=== PATIENT | male | born 1965 | race Caucasian/White ===

== ENCOUNTER 2017-08-24 08:40 | Inpatient (IN) | payer OTHER ==
[~2017-08-24] VITALS: Ht 180.3 cm; Wt 110.4 kg
[~2017-08-24 08:40] MED LIST: ATOR40TA16 PO; C PAP; CARD360C PO; DIPH25CA PO; IBUP-232 PO; LISI40TA PO; SERT-129 PO
[2017-08-24 08:49] VITALS: BP 171/69; PULSE 79; RESP 18; O2SAT 91
[2017-08-24] MEDS ORDERED: ONDANSETRON HCL 4 MG/2 ML VIAL IV PUSH ONE ×2 (09:00→12:00)
[2017-08-24] MEDS ORDERED: MORPHINE SULFATE 4 MG/ML INJ IV PUSH ONE (09:00)
[2017-08-24] MEDS ORDERED: BLOOD PRESSURE MED PO (09:03)
[2017-08-24] MEDS ORDERED: TETANUS/DIPHTHERIA TOXOID ADULT 0.5 ML VIAL IM ONE (09:15)
[2017-08-24] MEDS ORDERED: ceFAZolin 2 GM PREMIX 50 ML IV ONE (09:15)
--- NOTE | 2017-08-24 09:15 | PD ---
HPI Chief Complaint: Fall Time Seen by Provider: 08:59 Travel History International Travel<30 days: No Contact w/Intl Traveler<30days: No Traveled to known affect area: No History of Present Illness HPI 52-year-old male patient presents to the ER today brought in by EMS because he states that he had fallen off the ladder after pinching his finger on a piece of equipment, and states that he fell about 7-8 feet, landed on both of his legs , and is having bilateral leg pains. He denies falling on his back, denies any loss of consciousness or head injuries or other injuries. Modifying Factors: None Associated Signs & Symptoms: Fall, bilateral leg injuries Risk Factors: None PFSH Past Medical History Depression: Yes Hypertension: Yes Tetanus Vaccination: > 5 Years Past Surgical History Appendectomy: Yes Social History Alcohol Use: No Tobacco Use: No Substance Use: No Allergies-Medications (Allergen,Severity, Reaction): Coded Allergies: oxycodone (Unverified Allergy, Intermediate, Rash,Hives, 08/24/17) all over body Reported Meds & Prescriptions Reported Meds & Active Scripts Active Sertraline (Sertraline HCl) 100 Mg Tab 100 Mg PO DAILY 1 and 1/2 tablets daily Lisinopril 40 Mg Tab 40 Mg PO DAILY Reported Cardizem CD 24 HR (Diltiazem CD 24 HR) 360 Mg Caper 360 Mg PO DAILY Review of Systems Except as stated in HPI: all other systems reviewed are Neg Physical Exam Narrative GENERAL: Well-developed middle-age male patient currently in moderate distress. Awake and oriented 3. On backboard. SKIN: Focused skin assessment warm/dry. HEAD: Atraumatic. Normocephalic. EYES: Pupils equal and round. No scleral icterus. No injection or drainage. ENT: No nasal bleeding or discharge. Mucous membranes pink and moist. NECK: Trachea midline. No JVD. No midline C-spine tenderness. Supple. CARDIOVASCULAR: Regular rate and rhythm. No murmur appreciated. RESPIRATORY: No accessory muscle use. Clear to auscultation. Breath sounds equal bilaterally. GASTROINTESTINAL: Abdomen soft, non-tender, nondistended. Hepatic and splenic margins not palpable. Pelvis: Stable and nontender to palpation. Nontender range of motion of both hips. MUSCULOSKELETAL: No obvious deformities. No clubbing. No cyanosis. No edema. EXTREMITIES: No clubbing, cyanosis, or edema. There is notable abrasions and tenderness and ecchymosis over the anterior right knee below the patella area, decreased range of motion secondary to pain. There is a left ankle deformity and laceration to the ankle area concerning for possible open fracture. Neurovascularly intact below injury. NEUROLOGICAL: Awake and alert. No obvious cranial nerve deficits. Motor grossly within normal limits. Normal speech. PSYCHIATRIC: Appropriate mood and affect; insight and judgment normal. Data Data Last Documented VS Vital Signs Date Time Temp Pulse Resp B/P (MAP) Pulse Ox O2 Delivery O2 Flow Rate FiO2 08/24/17 08:53 80 08/24/17 08:49 18 171/69 (103) 91 Orders Orders Foot, Limited (2vws) (08/24/17 08:59) Tibia/Fibula (Ap/Lat) (08/24/17 08:59) Knee, Complete (4vws) (08/24/17 08:59) Tibia/Fibula (Ap/Lat) (08/24/17 08:59) Morphine Inj (Morphine Inj) (08/24/17 09:00) Ondansetron Inj (Zofran Inj) (08/24/17 09:00) Complete Blood Count With Diff (08/24/17 09:12) Basic Metabolic Panel (Bmp) (08/24/17 09:12) Tetanus/Diphtheria Tox Adult (Tetanus/Di (08/24/17 09:15) Cefazolin 2 Gm Premix (Ancef 2 Gm Premix (08/24/17 09:15) Knee, Ltd (1 Or 2vws) (08/24/17 08:59) Hydromorphone Pf Inj (Dilaudid Pf Inj) (08/24/17 11:15) Admit Order (Ed Use Only) (08/24/17 11:27) Labs Laboratory Tests Test 08/24/17 09:10 White Blood Count 10.0 TH/MM3 Red Blood Count 4.69 MIL/MM3 Hemoglobin 14.6 GM/DL Hematocrit 43.2 % Mean Corpuscular Volume 91.9 FL Mean Corpuscular Hemoglobin 31.0 PG Mean Corpuscular Hemoglobin Concent 33.8 % Red Cell Distribution Width 13.1 % Platelet Count 237 TH/MM3 Mean Platelet Volume 8.1 FL Neutrophils (%) (Auto) 61.3 % Lymphocytes (%) (Auto) 30.2 % Monocytes (%) (Auto) 6.9 % Eosinophils (%) (Auto) 1.0 % Basophils (%) (Auto) 0.6 % Neutrophils # (Auto) 6.1 TH/MM3 Lymphocytes # (Auto) 3.0 TH/MM3 Monocytes # (Auto) 0.7 TH/MM3 Eosinophils # (Auto) 0.1 TH/MM3 Basophils # (Auto) 0.1 TH/MM3 CBC Comment DIFF FINAL Differential Comment Blood Urea Nitrogen 10 MG/DL Creatinine 1.15 MG/DL Random Glucose 149 MG/DL Calcium Level 8.2 MG/DL Sodium Level 139 MEQ/L Potassium Level 3.9 MEQ/L Chloride Level 105 MEQ/L Carbon Dioxide Level 24.2 MEQ/L Anion Gap 10 MEQ/L Estimat Glomerular Filtration Rate 66 ML/MIN [facility] Medical Decision Making Medical Screen Exam Complete: Yes Emergency Medical Condition: Yes Medical Record Reviewed: Yes Interpretation(s) Laboratory Tests Test 08/24/17 09:10 Random Glucose 149 MG/DL (74-106) Calcium Level 8.2 MG/DL (8.5-10.1) Estimat Glomerular Filtration Rate 66 ML/MIN (>89) Last 24 hours Impressions Tibia/Fibula X-Ray 08/24/1759 Signed Impressions: Service Date/Time: Thursday, August 24, 2017 09:17 - CONCLUSION: 1. Severely comminuted fracture involving the distal tibia the distal tibia with essentially shattered. The ankle mortise itself is intact. 2. Angulated fracture involving the distal fibula. 3. There are several bone fragments adjacent to the fibular head is below the knee consistent with mildly comminuted fracture of the proximal fibular head as well. Jaime Toledo MD Knee X-Ray 08/24/1759 Signed Impressions: Service Date/Time: Thursday, August 24, 2017 09:17 - CONCLUSION: 1. Comminuted, mildly displaced fracture of the fibular head. Jaime Toledo MD Knee X-Ray 08/24/1759 Signed Impressions: Service Date/Time: Thursday, August 24, 2017 09:42 - CONCLUSION: 1. Comminuted, mildly displaced fracture of the proximal right tibia. 2. The tibial plateaus are intact. There is however it advanced tricompartmental osteoarthritis in the right knee. Jaime Toledo MD Differential Diagnosis Acute fractures versus dislocations versus contusions Narrative Course The left ankle is a severely comminuted tib-fib fracture distally and is appears to be open. Patient was given Ancef and IV pain medications in the ER. The right tibial plateau was also comminuted and fractured. He is placed in splints. Case was discussed with Dr. Tenorio who plans to take the patient to the OR tonight. Case was then discussed with trauma surgery, , who agrees to admit him to trauma. Diagnosis Primary Impression: Fall from ladder Additional Impressions: Open fracture of tibia and fibula Fracture of right tibial plateau Admitting Information Admitting Physician Requests: Admit Gordo Medrano MD Aug 24, 2017 09:15
[2017-08-24 09:28] LABS: AUTOMATED NEUTROPHIL # 6.1 TH/MM3 (1.8-7.7); BASOPHIL # 0.1 TH/MM3 (0-0.2); BASOPHIL % 0.6 % (0.0-2.0); EOSINOPHIL # 0.1 TH/MM3 (0-0.4); HEMATOCRIT 43.2 % (39.0-51.0); HEMOGLOBIN 14.6 GM/DL (13.0-17.0); LYMPH % 30.2 % (9.0-44.0); MEAN CELL VOLUME 91.9 FL (80.0-100.0); MEAN CORPUSCULAR HGB CONC 33.8 % (32.0-36.0); MEAN PLATELET VOLUME 8.1 FL (7.0-11.0); MONO % 6.9 % (0.0-8.0); MONOCYTE # 0.7 TH/MM3 (0-0.9); NEUT % 61.3 % (16.0-70.0); PLATELET COUNT 237 TH/MM3 (150-450); RED BLOOD COUNT 4.69 MIL/MM3 (4.50-5.90); RED CELL DISTRIBUTION WIDTH 13.1 % (11.6-17.2)
[2017-08-24 09:51] LABS: BICARBONATE 24.2 MEQ/L (21.0-32.0); CALCIUM 8.2 MG/DL (8.5-10.1); CREATININE 1.15 MG/DL (0.60-1.30)
--- NOTE | 2017-08-24 10:21 | RADRPT ---
EXAM DATE/TIME: 08/24/2017 09:17 [facility] COMPARISON: No previous studies available for comparison. INDICATIONS : Fall from fox. Left ankle deformity with open wound. MEDICAL HISTORY : None. SURGICAL HISTORY : None. ENCOUNTER: Initial ACUITY: 1 day PAIN SCORE: 10/10 LOCATION: Left ankle FINDINGS: The examination demonstrates a severely comminuted fracture involving the distal tibia. This extends nearly down to the articular surface. There are numerous fracture fragments. There is mild angulation . The examination also demonstrates an angulated fracture involving the distal fibula. The examination also demonstrates multiple small bone fragments adjacent to the fibular head consistent with fibular head fracture. There is considerable soft tissue defect above this suggesting open fracture. I do not see evidence o f gas within the subcutaneous tissues. CONCLUSION: 1. Severely comminuted fracture involving the distal tibia the distal tibia with essentially shattere d. The ankle mortise itself is intact. 2. Angulated fracture involving the distal fibula. 3. There are several bone fragments adjacent to the fibular head is below the knee consistent with mi ldly comminuted fracture of the proximal fibular head as well. Jaime Toledo MD on August 24, 2017 at 10:16 Board Certified Radiologist. This report was verified electronically.
--- NOTE | 2017-08-24 10:28 | RADRPT ---
EXAM DATE/TIME: 08/24/2017 09:17 [facility] COMPARISON: No previous studies available for comparison. INDICATIONS : Fall from fox. Left tibia pain with distal deformity. MEDICAL HISTORY : None. SURGICAL HISTORY : None. ENCOUNTER: Initial ACUITY: 1 day PAIN SCORE: 10/10 LOCATION: Left distal tib/fib FINDINGS: The examination demonstrates several bone fragments adjacent to the proximal fibular head. Exam would be consistent with fracture the fibular head. I do not see the exact donor site. There is no significant joint effusion within the knee. The femur tibia and patella are intact. CONCLUSION: 1. Comminuted, mildly displaced fracture of the fibular head. Jaime Toledo MD on August 24, 2017 at 10:25 Board Certified Radiologist. This report was verified electronically.
[2017-08-24] MEDS ORDERED: CARD360C PO (10:56)
[2017-08-24] MEDS ORDERED: HYDROmorphone HCL PF 1 MG/ML VIAL IV PUSH ONE (11:15)
[2017-08-24] MEDS ORDERED: HYDROmorphone HCL PF 2 MG/ML VIAL IV PUSH ONE (11:15)
--- NOTE | 2017-08-24 11:15 | RADRPT ---
EXAM DATE/TIME: 08/24/2017 09:42 [facility] COMPARISON: FOOT LEFT LIMITED (2VWS), August 24, 2017, 9:28. INDICATIONS : Fall from fox. Right proximal tibia injury. MEDICAL HISTORY : None. SURGICAL HISTORY : None. ENCOUNTER: Initial ACUITY: 1 day PAIN SCORE: 10/10 LOCATION: Right proximal tib/fib FINDINGS: The examination demonstrates a comminuted fracture of the proximal right tibia. There is mild medial displacement. There are moderate tricompartmental osteoarthritic changes within the right knee. CONCLUSION: 1. Comminuted, mildly displaced fracture of the proximal right tibia. 2. The tibial plateaus are intact. There is however it advanced tricompartmental osteoarthritis in th e right knee. Jaime Toledo MD on August 24, 2017 at 11:10 Board Certified Radiologist. This report was verified electronically.
--- NOTE | 2017-08-24 11:18 | RADRPT ---
EXAM DATE/TIME: 08/24/2017 09:28 [facility] COMPARISON: TIBIA/FIBULA LEFT (AP/LAT), August 24, 2017, 9:17. TIBIA/FIBULA RIGHT (AP/LAT), August 24, 2017, 9:42. INDICATIONS : Fall from fox. Left ankle deformity with open wound. MEDICAL HISTORY : None. SURGICAL HISTORY : None. ENCOUNTER: Initial ACUITY: 1 day PAIN SCORE: 10/10 LOCATION: Left ankle FINDINGS: Redemonstration of severely comminuted distal tibial fracture. Talar dome is not well demonstrated on the current exam but visualized portions appear intact. The osseous structures of the left foot appe ar intact. Joint spaces appear maintained. Soft tissues are unremarkable. CONCLUSION: 1. No acute fracture or dislocation in the foot. Jay Jay Diamond MD on August 24, 2017 at 10:52 Board Certified Radiologist. This report was verified electronically.
--- NOTE | 2017-08-24 11:20 | RADRPT ---
EXAM DATE/TIME: 08/24/2017 09:42 [facility] COMPARISON: No previous studies available for comparison. INDICATIONS : Fall from fox. Right proximal tib/fib injury. MEDICAL HISTORY : None. SURGICAL HISTORY : None. ENCOUNTER: Initial ACUITY: 1 day PAIN SCORE: 10/10 LOCATION: Right proximal tib/fib FINDINGS: Oblique comminuted fracture of the proximal tibia with subtle lateral displacement of the distal frag ment. Fibula appears intact without definite fracture. Joint spaces appear intact. Soft tissue promin ence overlying the anterior infrapatellar region. CONCLUSION: 1. Comminuted fracture of the proximal right tibia, as above. Jay Jay Diamond MD on August 24, 2017 at 11:16 Board Certified Radiologist. This report was verified electronically.
[2017-08-24] MEDS ORDERED: PROPOFOL 200 MG/20 ML AMP IV ONE (12:00)
[2017-08-24] MEDS ORDERED: DEXAMETHASONE SOD PHOS 4 MG/ML VIAL IV ONE (12:00)
[2017-08-24] MEDS ORDERED: PHENYLEPH/NS 1000 MCG/10 ML SYR IV ONE (12:00)
[2017-08-24] MEDS ORDERED: LIDOCAINE HCL 1% PF 5 ML SYRINGE OTHER ONE (12:00)
[2017-08-24] MEDS ORDERED: ePHEDrine/NS 25 MG/5 ML SYRINGE IV ONE (12:00)
[2017-08-24] MEDS ORDERED: LACTATED RINGER'S 1000 ML INJ 1,000 ML IV ONE (12:00)
[2017-08-24] MEDS ORDERED: ACETAMINOPHEN 1000 MG/100 ML 100 ML IV ONE (13:12)
[2017-08-24] MEDS ORDERED: HYDR-3288 PO (13:13)
[2017-08-24] MEDS ORDERED: ASPI81CH6 CHEW (13:14)
[2017-08-24] MEDS ORDERED: ceFAZolin INJ 1,000 MG VIAL ONE (13:25)
[2017-08-24] MEDS ORDERED: VANCOMYCIN HCL 1000 MG VIAL ONE (13:25)
[2017-08-24] MEDS ORDERED: SODIUM CHLOR 0.9% 250 ML INJ 250 ML ONE (13:25)
[2017-08-24] MEDS ORDERED: LACTATED RINGER'S 1000 ML IV PRN (13:30)
[2017-08-24] MEDS ORDERED: POVIDONE IODINE 5% (ANTISEPSIS KIT) 4 APPLICATIONS EACH NARE PRN (13:30)
[2017-08-24] MEDS ORDERED: METOPROLOL TARTRATE 25 MG TAB PO PRN (13:30)
[2017-08-24] MEDS ORDERED: CHLORHEXIDINE GLUCONATE 2 % 1 PACK (2 CLOTHS) TOPICAL PRN (13:30)
[2017-08-24] MEDS ORDERED: SODIUM CHLORID 0.9% 500 ML IV PRN (13:30)
[2017-08-24] MEDS ORDERED: GENTAMICIN SULFATE 80 MG/2 ML VIAL ONE (13:40)
--- NOTE | 2017-08-24 13:48 | MB ---
cc: Kev Tenorio MD DATE OF CONSULT: REASON FOR CONSULTATION: History of a fall off of a height with left comminuted open distal tibia/fibula pilon fracture and right tibial plateau fracture. HISTORY OF PRESENT ILLNESS: The patient is a 52-year-old male brought in by EMS to [facility] Emergency Room. He appeared to have fallen off a piece of construction equipment approximately 8 feet is what was reported, landing on his lower extremities, complained of severe pain at the lower extremities. He had obvious fractures involving the left distal tibia with a traumatic opening and complex wound and also sustained a right comminuted closed tibial plateau fracture. He was unable to stand or bear weight. The pain is extreme, severe, constant. He has worsening pain with any movement. Currently denies numbness, tingling. He denies hitting his head. Denies loss of consciousness. PAST MEDICAL HISTORY: Positive for hypertension and depression. PAST SURGICAL HISTORY: Appendectomy. SOCIAL HISTORY: Denies tobacco, alcohol or drug use. ALLERGIES: OXYCODONE. MEDICATIONS: Sertraline and lisinopril. FAMILY HISTORY: Reviewed and noncontributory. REVIEW OF SYSTEMS: Negative for 12 systems other than noted in the HPI. PHYSICAL EXAMINATION: GENERAL: The patient is a well-nourished male, awake, alert, in moderate distress, lying in bed. He is overweight. SKIN: Skin was warm. No rash. HEENT: Normocephalic, atraumatic. Pupils round. Extraocular movements intact. NECK: Supple. LUNGS: Clear. HEART: Regular rate and rhythm. ABDOMEN: Obese, soft, nontender. EXTREMITIES: Left lower extremity is currently splinted. There is swelling and deformity present. He can flex and extend his toes distally with pain, limitation of motion. Right lower extremity is also in a well-padded splint with swelling of the calf. He can flex and extend his toes distally. Brisk capillary refill. X-RAYS: Left tibia shows a highly comminuted complex distal tibia/fibula fracture which is pilon fracture and does appear intraarticular with displacement and angulation and deformity. X-rays of the right tibia shows a comminuted displaced tibial plateau fracture. IMPRESSION: This patient is a 52-year-old male who fell off a piece of construction equipment today sustaining multiple injuries to the lower extremities including a left open comminuted distal tibia/fibula pilon fracture as well as a right closed tibial plateau fracture. PLAN: Discussed diagnosis with the patient and treatment options. Discussed option of nonoperative treatment versus surgery. Surgery would be done in stages and surgery is my recommendation for treatment. Today recommendation for surgery would be irrigation and debridement of his left open tibial plateau fracture with reduction of the fracture and application of an external fixator. I would also recommend placing the patient in an external fixator for his right tibial plateau fracture after reduction maneuvers as well. Risks of surgery discussed, which include, but limited to anesthesia, bleeding, infection, damage to nerves and blood vessels, failure of components, blood clots. The patient also understands that my recommendation is to include addressing his injuries in a staged fashion, because of the complex nature as well as soft tissue swelling and the open fracture, I would not recommend putting internal fixation at this stage due to risk for soft tissue complication as well as infection. The patient has asked appropriate questions and these have been answered. He is in favor of proceeding with surgery as outlined above. Written consent has been obtained. The surgical sites including the right and left lower extremities have been marked by the undersigned and we will proceed with surgery emergently for his condition. MD HANSEL Chino/MARCO , 01:12 PM , 01:46 PM
[2017-08-24] MEDS ORDERED: DO NOT ADM ANY ANTICOAGULANT DRUGS PRN (14:37)
[2017-08-24] MEDS ORDERED: *MEPERIDINE 25 MG INJ VIAL PERIprocedural Use ONLY ONE (14:47)
--- NOTE | 2017-08-24 15:06 | MP ---
cc: Kev Tenorio MD DATE OF OPERATION: DATE OF PROCEDURE: 08/24/2017. PREOPERATIVE DIAGNOSIS: Left grade 2 open distal tibia/fibula comminuted fracture, right closed tibial plateau fracture. POSTOPERATIVE DIAGNOSIS: Left grade 2 open distal tibia/fibula comminuted fracture, right closed tibial plateau fracture. PROCEDURE PERFORMED: Closed reduction, left distal tibia/fibula pilon fracture under anesthesia with manipulation and application of multiplanar external fixator, left distal tibia/fibula open pilon fracture, irrigation and debridement of left distal tibia/fibula open fracture with complex 8 cm wound closure, closed reduction right tibial plateau fracture with manipulation and application of uniplanar external fixator right lower extremity. SURGEON: Kev Tenorio MD SAND CARRIER: BRANDI Thompson. ANESTHESIA: General. ESTIMATED BLOOD LOSS: 100 mL TOURNIQUET TIME: Zero minutes. COMPLICATIONS: None. IMPLANTS USED: Synthes. JUSTIFICATION: The patient is a 52-year-old male who fell off a piece of construction equipment sustaining the above named injuries. He was taken to [facility] Emergency Room as a trauma patient. Orthopedic surgery was consulted. The patient was counseled as to the risks, benefits and alternatives to the above named proposed surgical procedure. He did wish to proceed with surgery. PROCEDURE IN DETAIL: Written consent was obtained. The patient was identified by name and taken to the operating room and placed in the supine on the operating table. General anesthesia was administered, as well as 1 gram of IV Ancef, 1 gram of IV vancomycin. The left and right lower extremities were then prepped and draped using Isuprel alcohol, Hibiclens solution and ChloraPrep solution. After timeout was performed, Attention was first to the left lower extremity where the 8 cm traumatic open wound was extended in a longitudinal fashion using a 15 blade scalpel both proximally and distally. A meticulous debridement was performed to include skin, subcutaneous tissue, muscle, tendon down to level of bone. A curet was used to curet the distal tibia and fibula fractures. The wound was then thoroughly irrigated with sterile saline pulse lavage antibiotic impregnated solution. At this point, complex wound closure was performed using 3-0 nylon suture. At this point, 2 Synthes half pins were placed within the tibia in an AP plane and a medial to lateral transverse sagittal calcaneal pin was then placed. Raymundo to raymundo pin raymundo connections were performed and using assistance of fluoroscopic guidance, a closed reduction of the fracture was achieved. The raymundo to raymundo pin raymundo connections were clamped and tightened to allow for stabilization of the reduction and fracture. Sterile dressings were applied. Attention was then turned to the right lower extremity where 2 half pins were placed within the femoral shaft and also within the distal tibial shaft. Raymundo to raymundo pin raymundo connection performed. A closed reduction manipulation under anesthesia was performed using assistance of fluoroscopic guidance of the right tibial plateau fracture and the raymundo to raymundo pin raymundo connections were clamped and tightened to maintain stability and maintain reduction of the fracture. Fluoroscopic imaging again confirmed hardware placement and fracture reduction. Sterile dressings were again applied. The patient tolerated the procedure well with no intraoperative complications noted. The patient will require multiple staged surgical procedures in the future to further repair and reconstruct his injuries. This will be done in a planned staged pattern due to the complex nature of his injuries. Currently, he will receive ice, elevation, and IV antibiotic therapy for his open fracture. Narciso Crowe physician surgical assistant certified certified was present for the entire procedure to include patient positioning, the procedure itself. The medical necessity of physician surgical assistant certified was indicated in this case due to the complexity of the procedure. He assisted with manipulation of the fracture, as well as the application of the external fixation as well as achieving and maintaining fracture reduction. Kev Tenorio MD JWM/TL , 02:28 PM , 03:04 PM
[2017-08-24] MEDS ORDERED: *morphine SULFATE 10 MG/ML PERIprocedure ONLY ONE (15:17)
--- NOTE | 2017-08-24 15:18 | RADRPT ---
EXAM DATE/TIME: 08/24/2017 13:59 [facility] COMPARISON: TIBIA/FIBULA LEFT (AP/LAT), August 24, 2017, 9:17. TIBIA/FIBULA RIGHT (AP/LAT), August 24, 2017, 9:42. INDICATIONS : Ex Fix placement on left ankle fracture. MEDICAL HISTORY : Unobtainable. SURGICAL HISTORY : Unobtainable. ENCOUNTER: Subsequent ACUITY: 1 day PAIN SCORE: Non-responsive. LOCATION: Left ankle. FINDINGS: The examination demonstrates a severely comminuted, mildly angulated fracture of the distal left tibi a. There is a mildly displaced fracture of the fibula as well. The alignment is significantly improve d when compared to the prior study dated 08/24/17. CONCLUSION: 1. Significant improvement in the alignment of the patient's distal tibial and fibular fractures. Jaime Toledo MD on August 24, 2017 at 15:15 Board Certified Radiologist. This report was verified electronically.
--- NOTE | 2017-08-24 15:19 | RADRPT ---
EXAM DATE/TIME: 08/24/2017 13:59 [facility] COMPARISON: TIBIA/FIBULA RIGHT (AP/LAT), August 24, 2017, 9:42. INDICATIONS : Ex Fix placement on right tibial plateau fracture. MEDICAL HISTORY : Unobtainable. SURGICAL HISTORY : Unobtainable. ENCOUNTER: Subsequent ACUITY: 1 day PAIN SCORE: Non-responsive. LOCATION: Right knee. FINDINGS: Intraoperative film demonstrates the patient's known proximal tibial fracture. There is involvement o f the tibial tubercle. Alignment appears mildly improved when compared to previous dated 08/24/17. CONCLUSION: Intraoperative film demonstrates mild improvement in the alignment of the patient's tibial fracture. Jaime Toledo MD on August 24, 2017 at 15:16 Board Certified Radiologist. This report was verified electronically.
[2017-08-24] MEDS ORDERED: *morphine SULFATE 8 MG/ML PERIprocedure ONLY ONE (15:41)
[2017-08-24] MEDS ORDERED: *diphenhydrAMINE HCL 50 MG/ML VIAL PERIprocedural Use ONLY ONE ×2 (16:07→17:54)
[2017-08-24] MEDS ORDERED: ONDANSETRON HCL 4 MG/2 ML VIAL IV PUSH PRN ×2 (16:15→20:30)
[2017-08-24] MEDS ORDERED: MAGNESIUM HYDROXIDE SUSP 30 ML CUP PO PRN (20:30)
[2017-08-24] MEDS ORDERED: ENALAPRILAT 1.25 MG/ML VIAL IV PUSH PRN (20:30)
[2017-08-24] MEDS ORDERED: MISCELLANEOUS NURSING INFORMATION XX SCH (20:30)
[2017-08-24] MEDS ORDERED: CHLORHEXIDINE GLUCONATE 2 % 1 PACK (2 CLOTHS) TOP PRN (20:30)
[2017-08-24] MEDS ORDERED: NALOXONE HCL 0.4 MG/ML AMP IV PUSH PRN (20:30)
[2017-08-24 20:44] VITALS: BP 153/74; PULSE 89; RESP 17; TEMP 96.8; O2SAT 94
[2017-08-24] MEDS: BACITRACIN TOP OINT 15 GM TUBE TOP SCH (21:00)
[2017-08-24] MEDS: PCA - TOTAL MG MORPHINE DELIVERED PER SHIFT SCH (22:00)
[2017-08-24] MEDS ORDERED: ceFAZolin 2 GM PREMIX 50 ML IV SCH (22:45)
[2017-08-24] MEDS: METHOCARBAMOL 500 MG TAB PO SCH (22:45)
[2017-08-24] MEDS: GABAPENTIN 300 MG CAP PO SCH (22:46)
[2017-08-24] MEDS: DOCUSATE SODIUM 100 MG CAP PO SCH (22:47)
[2017-08-24] MEDS: SODIUM CHLOR 0.9% 1000 ML INJ 1,000 ML IV SCH (22:48)
[2017-08-24] MEDS: MORPHINE SULFATE 30 MG/30 ML PCA IV SCH (23:22)
[2017-08-25] VITALS (9 sets, daily range): BP systolic 117–154; BP diastolic 64–80; PULSE 86–102; RESP 17–19; TEMP 96.9–98.8; O2SAT 92–96
--- NOTE | 2017-08-25 01:40 | MH ---
cc: Kodak Philip MD DATE OF ADMISSION: 08/24/2017 DATE OF EVALUATION: Is 08/24/2017. HISTORY OF PRESENT ILLNESS: This is a trauma admit after a fall off of a ladder. The patient requires trauma admission. HISTORY OF PRESENT ILLNESS: The patient is a 52-year-old male who requires admission after a fall and sustaining multiple orthopaedic injuries. Per emergency room history and patient history, he lost his balance while on a ladder after pinching his finger in a piece of equipment and fell about 7-8 feet, landing on both of his legs. He complained of bilateral lower extremity pain and deformity. He denies falling on his back, chest, neck or head. Denies loss of consciousness and has no other complaints. The patient underwent evaluation in the emergency department, which included extensive imaging that showed severely comminuted fracture involving the distal left tibia and open fracture of the left tibia and fibula and closed fracture of the right tibial plateau. Dr. Tenorio was consulted and the patient was brought to the operating room urgently from the emergency department. The patient was found to have no other injuries. He is GCS is 15 and he is neurologically intact. He is medically stable. REVIEW OF SYSTEMS: A 12-point review of systems was discussed with the patient and reviewed in the chart; it is negative, except for the pertinent positives mentioned above. PAST MEDICAL HISTORY: Hypertension and depression. PAST SURGICAL HISTORY: History of appendectomy. ALLERGIES: OXYCODONE. HOME MEDICATIONS: 1. Lisinopril. 2. Cardizem. 3. Sertraline. FAMILY HISTORY: Noncontributory. SOCIAL HISTORY: The patient denies alcohol, tobacco or illicit drug use. PHYSICAL EXAMINATION: VITAL SIGNS: Initial vital signs in the emergency department: Pulse rate 80, respiratory rate 16, blood pressure 171/69. GENERAL: The patient is an overweight male in no acute distress. HEENT: Head is normocephalic, atraumatic. Pupils round and reactive to light. Sclerae are anicteric. Oral cavity is clear. Airway is patent. NECK: Trachea is midline. CHEST: Chest wall stable without deformity, nontender to palpation. Breath sounds present bilaterally. Nonlabored breathing pattern. HEART: Is regular rate and rhythm. No murmurs. ABDOMEN: Is soft, normal bowel sounds. No seatbelt sign. Nontender to palpation. No organomegaly. No ascites. BACK: No thoracic or lumbar tenderness. No ecchymosis or soft tissue injury. PELVIS: Is stable without deformity. Lower extremities show splints in place on the bilateral lower extremities. Toes are neurologically intact, warm and perfused. IMAGING Left tibia x-ray shows highly comminuted complex distal fracture. X-ray of the right tibia shows comminuted displaced tibial plateau fracture. LABORATORY VALUES: Hemoglobin 14.6. Glucose is elevated at 149. ASSESSMENT AND PLAN: The patient is a 52-year-old male status post a fall from a ladder with bilateral lower extremity fractures and isolated orthopaedic injury. The patient is status post washout and external fixation of the left ankle and external fixation of the right tibial plateau fracture. He is stable, neurologically intact. GCS 15. Admit the patient to the orthopaedic floor. Maintain the patient on appropriate antibiotics and pain medications and patient will be nonweightbearing, bilateral lower extremities. Will likely need significant Physical Therapy and Occupational Therapy evaluation and possible rehabilitation placement. MD GERALD Head/VEGA , 10:46 PM , 01:39 AM [email or web address]
[2017-08-25] MEDS: CHLORHEXIDINE GLUCONATE 2 % 1 PACK (2 CLOTHS) TOP SCH (04:00)
[2017-08-25] MEDS: PCA - TOTAL MG MORPHINE DELIVERED PER SHIFT SCH ×3 (05:12→22:00)
[2017-08-25] MEDS: MORPHINE SULFATE 30 MG/30 ML PCA IV SCH ×2 (05:12→14:52)
[2017-08-25] MEDS: METHOCARBAMOL 500 MG TAB PO SCH ×3 (05:12→22:26)
[2017-08-25 06:04] LABS: AUTOMATED NEUTROPHIL # 16.6 TH/MM3 (1.8-7.7); BASOPHIL % 0.1 % (0.0-2.0); HEMATOCRIT 36.8 % (39.0-51.0); HEMOGLOBIN 12.4 GM/DL (13.0-17.0); LYMPH % 7.3 % (9.0-44.0); LYMPHOCYTE # 1.4 TH/MM3 (1.0-4.8); MEAN CELL VOLUME 93.7 FL (80.0-100.0); MEAN CORPUSCULAR HEMOGLOBIN 31.6 PG (27.0-34.0); MEAN CORPUSCULAR HGB CONC 33.8 % (32.0-36.0); MEAN PLATELET VOLUME 8.2 FL (7.0-11.0); MONO % 6.6 % (0.0-8.0); MONOCYTE # 1.3 TH/MM3 (0-0.9); PLATELET COUNT 224 TH/MM3 (150-450); RED BLOOD COUNT 3.93 MIL/MM3 (4.50-5.90); WHITE BLOOD COUNT 19.3 TH/MM3 (4.0-11.0)
[2017-08-25 06:33] LABS: BICARBONATE 27.9 MEQ/L (21.0-32.0); CREATININE 1.57 MG/DL (0.60-1.30)
--- NOTE | 2017-08-25 06:42 | PD.ORT.PN ---
Subjective Subjective Remarks POD 1 s/p I&D and exfix of left distal tibia and right tibial plateau fxs doing well. pain controlled Objective Vitals Vital Signs Date Time Temp Pulse Resp B/P (MAP) Pulse Ox O2 Delivery O2 Flow Rate FiO2 08/25/17 05:24 18 08/25/17 05:12 18 08/25/17 05:12 18 08/25/17 04:00 98.5 93 18 139/77 (97) 95 08/25/17 00:00 98.8 93 17 142/80 (100) 94 08/24/17 23:22 18 08/24/17 20:44 96.8 89 17 153/74 (100) 94 08/24/17 20:00 97.6 78 15 122/68 (86) 95 Nasal Cannula 3 08/24/17 19:00 82 15 123/69 (87) 95 Nasal Cannula 3 08/24/17 18:00 84 15 130/71 (90) 94 Nasal Cannula 3 08/24/17 17:00 86 15 127/78 (94) 94 Nasal Cannula 3 08/24/17 16:00 88 15 130/73 (92) 93 Nasal Cannula 3 08/24/17 15:46 15 08/24/17 15:46 15 08/24/17 15:45 98.3 89 15 129/70 (89) 93 Nasal Cannula 3 08/24/17 15:30 92 15 135/69 (91) 99 Nasal Cannula 4 08/24/17 15:22 15 08/24/17 15:15 90 15 136/70 (92) 98 Nasal Cannula 4 08/24/17 15:00 91 15 138/67 (90) 97 Nasal Cannula 4 08/24/17 14:45 94 15 137/76 (96) 95 Nasal Cannula 4 08/24/17 14:35 98.6 93 10 148/81 (103) 94 Nasal Cannula 4 08/24/17 08:53 80 08/24/17 08:49 79 18 171/69 (103) 91 I/O 08/24/17 08/24/17 08/24/17 08/25/17 08/25/17 08/25/17 07:00 15:00 23:00 07:00 15:00 23:00 Intake Total 1050 ml 480 ml Output Total 30 ml Balance 1020 ml 480 ml Intake Oral 480 ml IV Total 50 ml Other 1000 ml Output Estimated Blood Loss 30 ml # Voids 0 Result Diagram: 08/25/170 08/25/17 0450 Imaging Last 24 hours Impressions Tibia/Fibula X-Ray 08/24/17 0859 Signed Impressions: Service Date/Time: Thursday, August 24, 2017 09:42 - CONCLUSION: 1. Comminuted fracture of the proximal right tibia, as above. Jay Jay Diamond MD Tibia/Fibula X-Ray 08/24/17 0859 Signed Impressions: Service Date/Time: Thursday, August 24, 2017 09:17 - CONCLUSION: 1. Severely comminuted fracture involving the distal tibia the distal tibia with essentially shattered. The ankle mortise itself is intact. 2. Angulated fracture involving the distal fibula. 3. There are several bone fragments adjacent to the fibular head is below the knee consistent with mildly comminuted fracture of the proximal fibular head as well. Jaime Toledo MD Knee X-Ray 08/24/17 0859 Signed Impressions: Service Date/Time: Thursday, August 24, 2017 09:17 - CONCLUSION: 1. Comminuted, mildly displaced fracture of the fibular head. Jaime Toledo MD Knee X-Ray 08/24/17 0859 Signed Impressions: Service Date/Time: Thursday, August 24, 2017 09:42 - CONCLUSION: 1. Comminuted, mildly displaced fracture of the proximal right tibia. 2. The tibial plateaus are intact. There is however it advanced tricompartmental osteoarthritis in the right knee. Jaime Toledo MD Foot X-Ray 08/24/17 0859 Signed Impressions: Service Date/Time: Thursday, August 24, 2017 09:28 - CONCLUSION: 1. No acute fracture or dislocation in the foot. Jay Jay Diamond MD Objective Remarks LLE: +exfix. pin sites clean. traumatic wound closed. 2+swelling. NVI RLE: +exfix. pin sites clean . 2+ swelling. NVI Assessment & Plan Assessment and Plan 1) Left Tibial Pilon Fx s/p Exfix - POD 1 2) Right Tibial Plateau Fx s/p exfix - POD 1 -CT scans of right knee and left ankle today -leave bandages open so can ice -elevate and ice -will re-eval for surgery after CT scans done -will likely be a few days before swelling is appropriate Nikhil Manuel/First Charlie PAZ Aug 25, 2017 06:42
[2017-08-25] MEDS: SODIUM CHLOR 0.9% 1000 ML INJ 1,000 ML IV SCH ×3 (07:00→20:53)
--- NOTE | 2017-08-25 08:21 | PD.ORT.PN ---
Subjective Post Op Day #: 1 Subjective Remarks pain controlled Objective Vitals Vital Signs Date Time Temp Pulse Resp B/P (MAP) Pulse Ox O2 Delivery O2 Flow Rate FiO2 08/25/17 07:51 97.8 96 19 135/68 (90) 94 08/25/17 05:24 18 08/25/17 05:12 18 08/25/17 05:12 18 08/25/17 04:00 98.5 93 18 139/77 (97) 95 08/25/17 00:00 98.8 93 17 142/80 (100) 94 08/24/17 23:22 18 08/24/17 20:44 96.8 89 17 153/74 (100) 94 08/24/17 20:00 97.6 78 15 122/68 (86) 95 Nasal Cannula 3 08/24/17 19:00 82 15 123/69 (87) 95 Nasal Cannula 3 08/24/17 18:00 84 15 130/71 (90) 94 Nasal Cannula 3 08/24/17 17:00 86 15 127/78 (94) 94 Nasal Cannula 3 08/24/17 16:00 88 15 130/73 (92) 93 Nasal Cannula 3 08/24/17 15:46 15 08/24/17 15:46 15 08/24/17 15:45 98.3 89 15 129/70 (89) 93 Nasal Cannula 3 08/24/17 15:30 92 15 135/69 (91) 99 Nasal Cannula 4 08/24/17 15:22 15 08/24/17 15:15 90 15 136/70 (92) 98 Nasal Cannula 4 08/24/17 15:00 91 15 138/67 (90) 97 Nasal Cannula 4 08/24/17 14:45 94 15 137/76 (96) 95 Nasal Cannula 4 08/24/17 14:35 98.6 93 10 148/81 (103) 94 Nasal Cannula 4 08/24/17 08:53 80 08/24/17 08:49 79 18 171/69 (103) 91 I/O 08/24/17 08/24/17 08/24/17 08/25/17 08/25/17 08/25/17 07:00 15:00 23:00 07:00 15:00 23:00 Intake Total 1050 ml 480 ml 720 ml Output Total 30 ml 575 ml Balance 1020 ml 480 ml 145 ml Intake Oral 480 ml 720 ml IV Total 50 ml Other 1000 ml Output Urine Total 575 ml Estimated Blood Loss 30 ml # Voids 0 # Bowel Movements 0 Result Diagram: 08/25/1744908/25/17449 Imaging Last 24 hours Impressions Tibia/Fibula X-Ray 08/24/17 0859 Signed Impressions: Service Date/Time: Thursday, August 24, 2017 09:42 - CONCLUSION: 1. Comminuted fracture of the proximal right tibia, as above. Jay Jay Diamond MD Tibia/Fibula X-Ray 08/24/17 0859 Signed Impressions: Service Date/Time: Thursday, August 24, 2017 09:17 - CONCLUSION: 1. Severely comminuted fracture involving the distal tibia the distal tibia with essentially shattered. The ankle mortise itself is intact. 2. Angulated fracture involving the distal fibula. 3. There are several bone fragments adjacent to the fibular head is below the knee consistent with mildly comminuted fracture of the proximal fibular head as well. Jaime Toledo MD Knee X-Ray 08/24/1759 Signed Impressions: Service Date/Time: Thursday, August 24, 2017 09:17 - CONCLUSION: 1. Comminuted, mildly displaced fracture of the fibular head. Jaime Toledo MD Knee X-Ray 08/24/17 0859 Signed Impressions: Service Date/Time: Thursday, August 24, 2017 09:42 - CONCLUSION: 1. Comminuted, mildly displaced fracture of the proximal right tibia. 2. The tibial plateaus are intact. There is however it advanced tricompartmental osteoarthritis in the right knee. Jaime Toledo MD Foot X-Ray 08/24/17 0859 Signed Impressions: Service Date/Time: Thursday, August 24, 2017 09:28 - CONCLUSION: 1. No acute fracture or dislocation in the foot. Jay Jay Diamond MD Objective Remarks LLE: +exfix. pin sites clean. traumatic wound closed. 2+swelling. NVI RLE: +exfix. pin sites clean . 2+ swelling. NVI Assessment & Plan Ortho Post Op Day #: 1 Problem List: Assessment and Plan 1) Left Tibial Pilon Fx s/p Exfix - POD 1 Dr. Tenorio 2) Right Tibial Plateau Fx s/p exfix - POD 1 Dr. Tenorio -CT scans of right knee and left ankle today -leave bandages open so can ice -elevate and ice -will re-eval for surgery after CT scans done -will likely be a few days before swelling is appropriate -plan for ORIF by Dr. Brownlee when swelling improves Kev Crowe Aug 25, 2017 08:21
[2017-08-25] MEDS: BACITRACIN TOP OINT 15 GM TUBE TOP SCH ×2 (09:00→20:58)
--- NOTE | 2017-08-25 09:04 | RADRPT ---
EXAM DATE/TIME: 08/25/2017 08:26 [facility] COMPARISON: KNEE RIGHT LTD (1 OR 2 VWS), August 24, 2017, 13:59. INDICATIONS : Fell off a fox. Evaluate right knee fracture. RADIATION DOSE: 8.49 CTDIvol (mGy) MEDICAL HISTORY : Hypertension. SURGICAL HISTORY : External fixator left and right legs. ENCOUNTER: Initial ACUITY: 1 day PAIN SCALE: 7/10 LOCATION: Right knee TECHNIQUE: Volumetric scanning of the knee was performed. Using automated exposure control and adjustment of th e mA and/or kV according to patient size, radiation dose was kept as low as reasonably achievable to obtain optimal diagnostic quality images. DICOM format image data is available electronically for re view and comparison. FINDINGS: The patella grossly intact. The distal femur is intact. There is a well-defined bone cyst in the dist al femur at the level of the lateral femoral condyle. This bone cyst measures approximately 1.8 x 1.6 cm. The proximal fibula is grossly intact. There appears to be a relatively nondisplaced fracture th rough the proximal shaft of the tibia. There is a small avulsion fracture involving the anterior tibi al tuberosity. The fracture line extends down into the proximal one third shaft of the tibia. The fra cture does not appear to involve the articulating surface. However, there does appear to be a well-de fined bone cyst in the proximal tibia measuring approximately 3.0 x 2.2 cm. There is good alignment a t the knee joint. There are some degenerative changes noted involving the knee joint. There is some n arrowing of the medial joint compartment. Also, there appears to be a small loose body in the medial joint compartment. Loose body measures approximately 6 mm. On the lateral view, the loose bodies is i n the posterior portion of the medial joint compartment. There is a small nondisplaced fracture invol ving the medial superior tip of the fibula. There is no evidence of any significant joint effusion. T here is soft tissue swelling in the subcutaneous soft tissues in the region of the knee joint and pro ximal tibia mostly anteriorly. CONCLUSION: 1. There are nondisplaced fractures involving the proximal one third shaft of the tibia. There is als o a nondisplaced avulsion fracture involving the anterior tibial tuberosity. 2. There is a small 6 mm loose body in the posterior medial joint compartment. 3. Nondisplaced fracture involving the superior medial fibula. 4. Well-defined bone cyst in the distal femur and proximal tibia. Marco Dahl MD on August 25, 2017 at 8:50 Board Certified Radiologist. This report was verified electronically.
--- NOTE | 2017-08-25 09:08 | RADRPT ---
EXAM DATE/TIME: 08/25/2017 08:26 [facility] COMPARISON: ANKLE LEFT LIMITED (AP&LAT), August 24, 2017, 13:59. INDICATIONS : Fell off a fox. Evaluate left ankle fractures. RADIATION DOSE: 7.57 CTDIvol (mGy) MEDICAL HISTORY : Hypertension. SURGICAL HISTORY : External fixators right and left legs. ENCOUNTER: Initial ACUITY: 1 day PAIN SCALE: 7/10 LOCATION: Left ankle TECHNIQUE: Volumetric scanning of the ankle was performed. Using automated exposure control and adjustment of t mA and/or kV according to patient size, radiation dose was kept as low as reasonably achievable to obtain optimal diagnostic quality images. DICOM format image data is available electronically for review and comparison. FINDINGS: There is a severely comminuted fracture involving the distal shaft of the tibia. The fractures are mi ldly displaced. There are several fracture lines extending into the articulating surface of the morti se joint. The fractures involving the articular surface of the distal tibia are comminuted and mildly displaced. There is a comminuted mildly displaced fracture involving the distal one third shaft of t he fibula. The calcaneus and talus appear to be grossly intact. No significant joint dislocation is n oted at the mortise joint. CONCLUSION: 1. Severely comminuted fracture involving the distal shaft of the tibia. 2. Comminuted intra-articular fracture involving the distal tibia at the mortise joint. 3. Mildly displaced fracture involving the distal shaft of the fibula. Marco Dahl MD on August 25, 2017 at 9:02 Board Certified Radiologist. This report was verified electronically.
[2017-08-25] MEDS: FAMOTIDINE 20 MG TAB PO SCH ×2 (09:27→20:58)
[2017-08-25] MEDS: LISINOPRIL 20 MG TAB PO SCH (09:27)
[2017-08-25] MEDS: DILTIAZEM-CD 180 MG CAP ER PO SCH (09:27)
[2017-08-25] MEDS: DOCUSATE SODIUM 100 MG CAP PO SCH ×2 (09:27→20:57)
[2017-08-25] MEDS: SERTRALINE HCL 100 MG TAB PO SCH (09:27)
[2017-08-25] MEDS: GABAPENTIN 300 MG CAP PO SCH ×3 (09:27→16:57)
[2017-08-25] MEDS: LACTULOSE SYRUP 20 GM/30 ML CUP PO SCH (09:27)
--- NOTE | 2017-08-25 11:20 | HHI.PR ---
Subjective Subjective Notes PTD: 1 Patient lying in bed. No distress noted. Visitors at bedside. Patient very disappointed due to his injury. "I just want to go home." "Can I just go back to work?" Objective Vitals/I&O Vital Signs Date Time Temp Pulse Resp B/P (MAP) Pulse Ox O2 Delivery O2 Flow Rate FiO2 08/25/17 07:51 97.8 96 19 135/68 (90) 94 08/24/17 20:00 Nasal Cannula 3 Labs Laboratory Tests Test 08/25/17 04:50 White Blood Count 19.3 Red Blood Count 3.93 Hemoglobin 12.4 Hematocrit 36.8 Mean Corpuscular Volume 93.7 Mean Corpuscular Hemoglobin 31.6 Mean Corpuscular Hemoglobin Concent 33.8 Red Cell Distribution Width 13.0 Platelet Count 224 Mean Platelet Volume 8.2 Neutrophils (%) (Auto) 86.0 Lymphocytes (%) (Auto) 7.3 Monocytes (%) (Auto) 6.6 Eosinophils (%) (Auto) 0.0 Basophils (%) (Auto) 0.1 Neutrophils # (Auto) 16.6 Lymphocytes # (Auto) 1.4 Monocytes # (Auto) 1.3 Eosinophils # (Auto) 0.0 Basophils # (Auto) 0.0 CBC Comment DIFF FINAL Differential Comment Blood Urea Nitrogen 21 Creatinine 1.57 Random Glucose 150 Calcium Level 8.0 Sodium Level 139 Potassium Level 4.7 Chloride Level 104 Carbon Dioxide Level 27.9 Anion Gap 7 Estimat Glomerular Filtration Rate 46 Radiology Last Impressions Lower Extremity CT 08/25/17 0000 Signed Impressions: Service Date/Time: Friday, August 25, 2017 08:26 - CONCLUSION: 1. There are nondisplaced fractures involving the proximal one third shaft of the tibia. There is also a nondisplaced avulsion fracture involving the anterior tibial tuberosity. 2. There is a small 6 mm loose body in the posterior medial joint compartment. 3. Nondisplaced fracture involving the superior medial fibula. 4. Well-defined bone cyst in the distal femur and proximal tibia. Marco Dahl MD Tibia/Fibula X-Ray 08/24/17 0859 Signed Impressions: Service Date/Time: Thursday, August 24, 2017 09:42 - CONCLUSION: 1. Comminuted fracture of the proximal right tibia, as above. Jay Jay Diamond MD Knee X-Ray 08/24/17 0859 Signed Impressions: Service Date/Time: Thursday, August 24, 2017 09:17 - CONCLUSION: 1. Comminuted, mildly displaced fracture of the fibular head. Jaime Toledo MD Foot X-Ray 08/24/17 0859 Signed Impressions: Service Date/Time: Thursday, August 24, 2017 09:28 - CONCLUSION: 1. No acute fracture or dislocation in the foot. Jay Jay Diamond MD Ankle X-Ray 08/24/17 0000 Signed Impressions: Service Date/Time: Thursday, August 24, 2017 13:59 - CONCLUSION: 1. Significant improvement in the alignment of the patient's distal tibial and fibular fractures. Jaime Toledo MD Narrative Exam GENERAL: This is a 52-year-old male lying in bed. No distress noted. SKIN: Warm and dry. HEAD: Atraumatic. Normocephalic. EYES: PERRLA ENT: No nasal bleeding or discharge. Mucous membranes pink and moist. NECK: Trachea midline. No JVD. CARDIOVASCULAR: Regular rate and rhythm. RESPIRATORY: No accessory muscle use. Lungs are clear to auscultation. Breath sounds equal bilaterally. No distress or dyspnea. GASTROINTESTINAL: BS + x 4 quads. Abdomen soft, non-tender, nondistended. MUSCULOSKELETAL: Extremities without cyanosis, or edema. Right lower extremity with ex-fix in place. Pin sites intact. Elevated on a pillow. Left lower extremity with ex-fix in place - increased swelling noted. Pin sites intact. Elevated on a pillow. + peripheral pulses x 4 extremities. Warm with good capillary refill and sensation. MAEW. NEUROLOGICAL: Awake and alert. Normal speech and pattern. A/P Problem List: (1) Fall from ladder ICD Codes: W11.XXXA - Fall on and from ladder, initial encounter Status: Acute (2) Fracture of right tibial plateau ICD Codes: S82.141A - Displaced bicondylar fracture of right tibia, initial encounter for closed fracture Status: Acute (3) Open fracture of tibia and fibula ICD Codes: S82.209B - Unspecified fracture of shaft of unspecified tibia, initial encounter for open fracture type I or II; S82.409B - Unspecified fracture of shaft of unspecified fibula, initial encounter for open fracture type I or II Status: Acute Assessment and Plan WAINWRIGHT: This is a 52-year-old male who sustained a fall. He fell off a ladder approximately 8 feet landing on both of his feet. No LOC. INJURIES: Open LEFT tib fib fx RIGHT tibial plateau fx PMHx: Depression, HTN Procedures: 08/24: I&D w/ Closed reduction, LEFT distal tibia/fibula pilon fx w/ ex-fix. Closed reduction RIGHT tibial plateau fx w/ ex-fix . Return to OR once swelling has decreased Consults: Orthopedics. Case management. Diet: Regular diet. Tolerating po diet. Encourage good po intake with each meal. Pulmonary: Encourage good pulmonary toileting. IS at bedside and pt encouraged to use. Rationale for use explained to patient, and verbalized understanding. Follow-up labs in the morning PAIN Management: Morphine [employer], [place] 10 mg q4h. Morphine 3 mg q 1h. Robaxin 500 mg q 8h. Neurontin 300 mg TID. Sleep: Trazodone 50 mg HS Activity: BR. PT and OT ordered. (NWB BLE) GI prophylaxis: Pepcid 20 mg BID po Bowel regimen: Colace and MOM. . Lactulose. LBM: 0 DVT prophylaxis: Mechanical VTE with SCDs contraindicated due to bilateral ex- fix in place. Chemical management with Heparin 5000 q8h DC Planning: Case management consulted for assistance with final discharge disposition. Emotional support provided to patient and family at bedside and plan of care discussed. Discussed with RN at bedside. Discussed pt condition and plan of care with collaborating trauma surgeon. Patient is hemodynamically stable and being managed on the med/surg floor. The trauma team will round each day, and evaluate plan of care on a daily basis. Open LEFT tib fib fx RIGHT tibial plateau fx Orthopedics consulted and assisting in management and care 08/24: I&D w/ Closed reduction, LEFT distal tibia/fibula pilon fx w/ ex-fix. Closed reduction RIGHT tibial plateau fx w/ ex-fix Return to the OR once swelling has decreased Supportive care Pain management PT and OT ordered NWB BLE Pin care per orthopedic Antibiotics per orthopedics DVT prophylaxis heparin Problem Qualifiers (1) Fall from ladder: Qualified Codes: W11.XXXA - Fall on and from ladder, initial encounter (2) Fracture of right tibial plateau: (3) Open fracture of tibia and fibula: Vicki Cary Aug 25, 2017 11:20
[2017-08-25] MEDS: diphenhydrAMINE HCL 25 MG CAP PO PRN ×2 (12:10→16:57)
[2017-08-25] MEDS: HEPARIN SODIUM - SQ 10,000 UNITS/ML VIAL SQ SCH ×2 (14:40→22:27)
--- NOTE | 2017-08-25 16:12 | EKG ---
Date Performed: 08/24/2017 Time Performed: 12:12:45 PTAGE: 52 years EKG: Sinus rhythm NONSPECIFIC T-WAVE ABNORMALITY BORDERLINE ECG NO PREVIOUS TRACING DOCTOR: Peter Cornejo Interpretating Date/Time 08/25/2017 16:09:45
[2017-08-25] MEDS: traZODone HCL 50 MG TAB PO SCH (20:58)
[2017-08-26] VITALS (7 sets, daily range): BP systolic 121–142; BP diastolic 59–69; PULSE 82–98; RESP 17–22; TEMP 98.4–100.1; O2SAT 92–96
[2017-08-26] MEDS: CHLORHEXIDINE GLUCONATE 2 % 1 PACK (2 CLOTHS) TOP SCH ×2 (01:52→23:39)
[2017-08-26 04:05] LABS: AUTOMATED NEUTROPHIL # 14.5 TH/MM3 (1.8-7.7); BASOPHIL % 0.2 % (0.0-2.0); EOSINOPHIL # 0.1 TH/MM3 (0-0.4); EOSINOPHIL % 0.4 % (0.0-4.0); HEMATOCRIT 33.2 % (39.0-51.0); HEMOGLOBIN 11.1 GM/DL (13.0-17.0); LYMPHOCYTE # 2.3 TH/MM3 (1.0-4.8); MEAN CELL VOLUME 94.6 FL (80.0-100.0); MEAN CORPUSCULAR HEMOGLOBIN 31.7 PG (27.0-34.0); MEAN CORPUSCULAR HGB CONC 33.5 % (32.0-36.0); MEAN PLATELET VOLUME 8.3 FL (7.0-11.0); MONO % 6.3 % (0.0-8.0); MONOCYTE # 1.1 TH/MM3 (0-0.9); NEUT % 80.1 % (16.0-70.0); PLATELET COUNT 178 TH/MM3 (150-450); RED BLOOD COUNT 3.51 MIL/MM3 (4.50-5.90); RED CELL DISTRIBUTION WIDTH 13.2 % (11.6-17.2)
[2017-08-26 04:42] LABS: CALCIUM 8.2 MG/DL (8.5-10.1); CREATININE 1.27 MG/DL (0.60-1.30)
[2017-08-26] MEDS: METHOCARBAMOL 500 MG TAB PO SCH ×3 (06:00→22:19)
[2017-08-26] MEDS: PCA - TOTAL MG MORPHINE DELIVERED PER SHIFT SCH ×4 (06:00→23:39)
--- NOTE | 2017-08-26 06:34 | PD.ORT.PN ---
Subjective Subjective Remarks Resting comfortably with no new complaints Objective Vitals Vital Signs Date Time Temp Pulse Resp B/P (MAP) Pulse Ox O2 Delivery O2 Flow Rate FiO2 08/25/17 23:30 97.1 90 18 136/67 (90) 93 08/25/17 19:50 97.4 86 17 130/64 (86) 95 08/25/17 17:56 93 Nasal Cannula 3.00 08/25/17 15:39 96.9 88 19 117/72 (87) 93 08/25/17 11:44 96 Nasal Cannula 3.00 08/25/17 11:33 98.8 102 19 154/76 (102) 92 08/25/17 07:51 97.8 96 19 135/68 (90) 94 I/O 08/25/17 08/25/17 08/25/17 08/26/17 08/26/17 08/26/17 07:00 15:00 23:00 07:00 15:00 23:00 Intake Total 1660 ml Output Total 1075 ml Balance 585 ml Intake Oral 1660 ml Output Urine Total 1075 ml # Bowel Movements 0 Result Diagram: 08/26/17 0307 08/26/17 0307 Imaging Last 24 hours Impressions Tibia/Fibula X-Ray 08/24/17 0859 Signed Impressions: Service Date/Time: Thursday, August 24, 2017 09:42 - CONCLUSION: 1. Comminuted fracture of the proximal right tibia, as above. Jay Jay Diamond MD Tibia/Fibula X-Ray 08/24/17 0859 Signed Impressions: Service Date/Time: Thursday, August 24, 2017 09:17 - CONCLUSION: 1. Severely comminuted fracture involving the distal tibia the distal tibia with essentially shattered. The ankle mortise itself is intact. 2. Angulated fracture involving the distal fibula. 3. There are several bone fragments adjacent to the fibular head is below the knee consistent with mildly comminuted fracture of the proximal fibular head as well. Jaime Toledo MD Knee X-Ray 08/24/17 0859 Signed Impressions: Service Date/Time: Thursday, August 24, 2017 09:17 - CONCLUSION: 1. Comminuted, mildly displaced fracture of the fibular head. Jaime Toledo MD Knee X-Ray 08/24/1759 Signed Impressions: Service Date/Time: Thursday, August 24, 2017 09:42 - CONCLUSION: 1. Comminuted, mildly displaced fracture of the proximal right tibia. 2. The tibial plateaus are intact. There is however it advanced tricompartmental osteoarthritis in the right knee. Jaime Toledo MD Foot X-Ray 08/24/17 0859 Signed Impressions: Service Date/Time: Thursday, August 24, 2017 09:28 - CONCLUSION: 1. No acute fracture or dislocation in the foot. Jay Jay Diamond MD Objective Remarks LLE: +exfix. pin sites clean. traumatic wound closed. 2+swelling. NVI RLE: +exfix. pin sites clean . 2+ swelling. NVI Assessment & Plan Assessment and Plan 1) Left Tibial Pilon Fx s/p Exfix - POD 2 Dr. Tenorio 2) Right Tibial Plateau Fx s/p exfix - POD 2 Dr. Tenorio -leave bandages open so can ice -elevate and ice Toradol 15 mg every 8 hours 6 doses -Possible surgery on Thursday Issac Brooks Jr. Aug 26, 2017 06:34
[2017-08-26] MEDS ORDERED: SODIUM CHLOR 0.9% 1000 ML INJ 1,000 ML IV ONE (07:15)
[2017-08-26] MEDS: HEPARIN SODIUM - SQ 10,000 UNITS/ML VIAL SQ SCH ×3 (07:34→22:20)
[2017-08-26] MEDS: KETOROLAC TROMETHAMINE 30 MG/ML (IVP) VIAL IV PUSH SCH ×3 (07:34→22:16)
[2017-08-26] MEDS: ACETAMINOPHEN/HYDROcodone 325 MG/10 MG TAB PO PRN ×3 (08:28→18:35)
[2017-08-26] MEDS: DOCUSATE SODIUM 100 MG CAP PO SCH ×2 (08:29→22:20)
[2017-08-26] MEDS: FAMOTIDINE 20 MG TAB PO SCH ×2 (08:29→22:19)
[2017-08-26] MEDS: GABAPENTIN 300 MG CAP PO SCH ×3 (08:30→18:35)
[2017-08-26] MEDS: BACITRACIN TOP OINT 15 GM TUBE TOP SCH ×2 (08:30→21:00)
[2017-08-26] MEDS: LISINOPRIL 20 MG TAB PO SCH (08:30)
[2017-08-26] MEDS: DILTIAZEM-CD 180 MG CAP ER PO SCH (08:30)
[2017-08-26] MEDS: SERTRALINE HCL 100 MG TAB PO SCH (08:30)
[2017-08-26] MEDS: LACTULOSE SYRUP 20 GM/30 ML CUP PO SCH (08:31)
[2017-08-26] MEDS: diphenhydrAMINE HCL 25 MG CAP PO PRN (08:44)
--- NOTE | 2017-08-26 12:02 | HHI.PR ---
Subjective Subjective Notes PTD: 2 Pt sitting up in bed and watching TV eating a bag of peanut M&M's. No distress noted. "They just gave me some meds, and I'm not feeling anything. I'm not itching either" "My right leg is more swollen today." "I have worker's comp - so they are gonna meet with me today." Objective Vitals/I&O Vital Signs Date Time Temp Pulse Resp B/P (MAP) Pulse Ox O2 Delivery O2 Flow Rate FiO2 08/26/17 11:30 98.8 90 21 126/59 (81) 93 08/25/17 17:56 Nasal Cannula 3.00 Labs Laboratory Tests Test 08/26/17 03:07 White Blood Count 18.0 Red Blood Count 3.51 Hemoglobin 11.1 Hematocrit 33.2 Mean Corpuscular Volume 94.6 Mean Corpuscular Hemoglobin 31.7 Mean Corpuscular Hemoglobin Concent 33.5 Red Cell Distribution Width 13.2 Platelet Count 178 Mean Platelet Volume 8.3 Neutrophils (%) (Auto) 80.1 Lymphocytes (%) (Auto) 13.0 Monocytes (%) (Auto) 6.3 Eosinophils (%) (Auto) 0.4 Basophils (%) (Auto) 0.2 Neutrophils # (Auto) 14.5 Lymphocytes # (Auto) 2.3 Monocytes # (Auto) 1.1 Eosinophils # (Auto) 0.1 Basophils # (Auto) 0.0 CBC Comment DIFF FINAL Differential Comment Blood Urea Nitrogen 23 Creatinine 1.27 Random Glucose 128 Calcium Level 8.2 Sodium Level 140 Potassium Level 4.5 Chloride Level 105 Carbon Dioxide Level 29.0 Anion Gap 6 Estimat Glomerular Filtration Rate 59 Radiology Last 48 hours Impressions Lower Extremity CT 08/25/17 0000 Signed Impressions: Service Date/Time: Friday, August 25, 2017 08:26 - CONCLUSION: 1. There are nondisplaced fractures involving the proximal one third shaft of the tibia. There is also a nondisplaced avulsion fracture involving the anterior tibial tuberosity. 2. There is a small 6 mm loose body in the posterior medial joint compartment. 3. Nondisplaced fracture involving the superior medial fibula. 4. Well-defined bone cyst in the distal femur and proximal tibia. Marco Dahl MD Lower Extremity CT 08/25/17 0000 Signed Impressions: Service Date/Time: Friday, August 25, 2017 08:26 - CONCLUSION: 1. Severely comminuted fracture involving the distal shaft of the tibia. 2. Comminuted intra-articular fracture involving the distal tibia at the mortise joint. 3. Mildly displaced fracture involving the distal shaft of the fibula. Marco Dahl MD Narrative Exam GENERAL: This is a 52-year-old male lying in bed. No distress noted. SKIN: Warm and dry. HEAD: Atraumatic. Normocephalic. EYES: PERRLA ENT: No nasal bleeding or discharge. Mucous membranes pink and moist. NECK: Trachea midline. No JVD. CARDIOVASCULAR: Regular rate and rhythm. RESPIRATORY: No accessory muscle use. Lungs are clear to auscultation. Breath sounds equal bilaterally. No distress or dyspnea. GASTROINTESTINAL: BS + x 4 quads. Abdomen soft, non-tender, nondistended. MUSCULOSKELETAL: Extremities without cyanosis. Right lower extremity with ex- fix in place. Pin sites intact - ice packs in place. Elevated on a pillow - increased edema compared to yesterday. Left lower extremity with ex-fix in place - increased swelling noted with ecchymosis noted to top of foot. Pin sites intact - ice packs in place. Elevated on a pillow. + peripheral pulses x 4 extremities. Warm with good capillary refill and sensation. MAEW. NEUROLOGICAL: Awake and alert. Normal speech and pattern. A/P Problem List: (1) Fall from ladder ICD Codes: W11.XXXA - Fall on and from ladder, initial encounter Status: Acute (2) Fracture of right tibial plateau ICD Codes: S82.141A - Displaced bicondylar fracture of right tibia, initial encounter for closed fracture Status: Acute (3) Open fracture of tibia and fibula ICD Codes: S82.209B - Unspecified fracture of shaft of unspecified tibia, initial encounter for open fracture type I or II; S82.409B - Unspecified fracture of shaft of unspecified fibula, initial encounter for open fracture type I or II Status: Acute Assessment and Plan [place]: This is a 52-year-old male who sustained a fall. He fell off a ladder approximately 8 feet landing on both of his feet. No LOC. INJURIES: Open LEFT tib fib fx RIGHT tibial plateau fx PMHx: Depression, HTN Procedures: 08/24: I&D w/ Closed reduction, LEFT distal tibia/fibula pilon fx w/ ex-fix. Closed reduction RIGHT tibial plateau fx w/ ex-fix . Return to OR once swelling has decreased Consults: Orthopedics. Case management. Diet: Regular diet. Tolerating po diet. Encourage good po intake with each meal. Pulmonary: Encourage good pulmonary toileting. IS at bedside and pt encouraged to use. Rationale for use explained to patient, and verbalized understanding. Follow-up labs in the morning BUN / creat = 23 / 1.27. Check CPK (still awaiting results). Give 1 L NS x 1 over 4 hrs today. PAIN Management: DC Morphine [employer]S LEAD, [place] 10 mg q4h. Morphine 3 mg q 1h. Robaxin 500 mg q 8h. Neurontin 300 mg TID. Sleep: Trazodone 50 mg HS Activity: BR. PT and OT ordered. (NWB BLE) GI prophylaxis: Pepcid 20 mg BID po Bowel regimen: Colace and MOM. . Lactulose. LBM: 0 DVT prophylaxis: Mechanical VTE with SCDs contraindicated due to bilateral ex- fix in place. Chemical management with Heparin 5000 q8h DC Planning: Case management consulted for assistance with final discharge disposition. Emotional support provided to patient and family at bedside and plan of care discussed. Discussed with RN at bedside. Discussed pt condition and plan of care with collaborating trauma surgeon. Patient is hemodynamically stable and being managed on the med/surg floor. The trauma team will round each day, and evaluate plan of care on a daily basis. Open LEFT tib fib fx RIGHT tibial plateau fx Orthopedics consulted and assisting in management and care 319: I&D w/ Closed reduction, LEFT distal tibia/fibula pilon fx w/ ex-fix. Closed reduction RIGHT tibial plateau fx w/ ex-fix Return to the OR once swelling has decreased - will be evaluated each day by orthopedics Supportive care Pain management PT and OT ordered NWB BLE Pin care per orthopedic Antibiotics per orthopedics DVT prophylaxis heparin Problem Qualifiers (1) Fall from ladder: Qualified Codes: W11.XXXA - Fall on and from ladder, initial encounter (2) Fracture of right tibial plateau: (3) Open fracture of tibia and fibula: Vicki Cary Aug 26, 2017 12:02
[2017-08-26] MEDS: SODIUM CHLOR 0.9% 1000 ML INJ 1,000 ML IV SCH ×2 (12:35→22:32)
[2017-08-26] MEDS: traZODone HCL 50 MG TAB PO SCH (22:20)
[2017-08-27] VITALS (7 sets, daily range): BP systolic 118–153; BP diastolic 65–73; PULSE 80–98; RESP 18–24; TEMP 96.2–100.5; O2SAT 91–95
[2017-08-27 04:54] LABS: BASOPHIL # 0.1 TH/MM3 (0-0.2); BASOPHIL % 0.4 % (0.0-2.0); EOSINOPHIL # 0.2 TH/MM3 (0-0.4); EOSINOPHIL % 1.3 % (0.0-4.0); HEMATOCRIT 29.3 % (39.0-51.0); HEMOGLOBIN 10.1 GM/DL (13.0-17.0); LYMPH % 13.7 % (9.0-44.0); MEAN CELL VOLUME 93.2 FL (80.0-100.0); MEAN CORPUSCULAR HEMOGLOBIN 32.1 PG (27.0-34.0); MEAN CORPUSCULAR HGB CONC 34.4 % (32.0-36.0); MEAN PLATELET VOLUME 7.9 FL (7.0-11.0); MONO % 7.6 % (0.0-8.0); MONOCYTE # 1.1 TH/MM3 (0-0.9); PLATELET COUNT 168 TH/MM3 (150-450); RED BLOOD COUNT 3.14 MIL/MM3 (4.50-5.90); RED CELL DISTRIBUTION WIDTH 12.8 % (11.6-17.2); WHITE BLOOD COUNT 14.3 TH/MM3 (4.0-11.0)
[2017-08-27 05:16] LABS: AST (GOT) 51 U/L (15-37); BICARBONATE 28.7 MEQ/L (21.0-32.0); BLOOD UREA NITROGEN 15 MG/DL (7-18); CALCIUM 7.9 MG/DL (8.5-10.1); CHLORIDE 106 MEQ/L (98-107); CREATININE 1.08 MG/DL (0.60-1.30); GLOMERULAR FILTRATION RATE 71 ML/MIN (>89); GLUCOSE,RANDOM 114 MG/DL (74-106); SODIUM (NA) 141 MEQ/L (136-145)
[2017-08-27 05:17] LABS: ALT (GPT) 20 U/L (12-78)
[2017-08-27 05:19] LABS: ALKALINE PHOSPHATASE 57 U/L (45-117); TOTAL BILIRUBIN ADULT 0.6 MG/DL (0.2-1.0)
[2017-08-27] MEDS: ACETAMINOPHEN/HYDROcodone 325 MG/10 MG TAB PO PRN ×2 (05:29→16:13)
[2017-08-27] MEDS: METHOCARBAMOL 500 MG TAB PO SCH ×3 (05:47→22:17)
[2017-08-27] MEDS: HEPARIN SODIUM - SQ 10,000 UNITS/ML VIAL SQ SCH (05:47)
[2017-08-27] MEDS: KETOROLAC TROMETHAMINE 30 MG/ML (IVP) VIAL IV PUSH SCH ×3 (05:48→22:17)
--- NOTE | 2017-08-27 06:30 | RADRPT ---
EXAM DATE/TIME: 08/27/2017 06:11 [facility] COMPARISON: No previous studies available for comparison. INDICATIONS : Shortness of breath. MEDICAL HISTORY : Hypertension. SURGICAL HISTORY : External fixation to bilateral lower extremities. ENCOUNTER: Subsequent ACUITY: 3 days PAIN SCORE: 0/10 LOCATION: Bilateral chest FINDINGS: There is a 1.9 cm rounded masslike opacity in the right midlung with poorly demarcated margins. The left lung is clear. The heart is normal size. Both hemidiaphragms are well delineated. CONCLUSION: Focal opacity in right midlung has masslike features. Recommend CT thorax for further characterizati on. Mango Murrell MD on August 27, 2017 at 6:26 Board Certified Radiologist. This report was verified electronically.
--- NOTE | 2017-08-27 06:34 | PD.ORT.PN ---
Subjective Subjective Remarks Resting comfortably with no new complaints Objective Vitals Vital Signs Date Time Temp Pulse Resp B/P (MAP) Pulse Ox O2 Delivery O2 Flow Rate FiO2 08/26/17 22:35 Simple Mask 8.00 08/26/17 20:30 93 Simple Mask 6.00 08/26/17 20:30 99.5 84 20 142/69 (93) 96 08/26/17 15:34 98.6 87 22 138/63 (88) 93 08/26/17 12:00 99.4 98 17 141/67 (91) 94 08/26/17 11:30 98.8 90 21 126/59 (81) 93 08/26/17 07:31 100.1 90 21 137/64 (88) 92 I/O 08/26/17 08/26/17 08/26/17 08/27/17 08/27/17 08/27/17 07:00 15:00 23:00 07:00 15:00 23:00 Intake Total 1620 ml Output Total 2300 ml Balance -680 ml Intake Oral 1620 ml Output Urine Total 2300 ml # Bowel Movements 0 Result Diagram: 08/27/17 0400 08/27/17 0400 Imaging Last 24 hours Impressions Tibia/Fibula X-Ray 08/24/17 0859 Signed Impressions: Service Date/Time: Thursday, August 24, 2017 09:42 - CONCLUSION: 1. Comminuted fracture of the proximal right tibia, as above. Jay Jay Diamond MD Tibia/Fibula X-Ray 08/24/17 0859 Signed Impressions: Service Date/Time: Thursday, August 24, 2017 09:17 - CONCLUSION: 1. Severely comminuted fracture involving the distal tibia the distal tibia with essentially shattered. The ankle mortise itself is intact. 2. Angulated fracture involving the distal fibula. 3. There are several bone fragments adjacent to the fibular head is below the knee consistent with mildly comminuted fracture of the proximal fibular head as well. Jaime Toledo MD Knee X-Ray 08/24/17 0859 Signed Impressions: Service Date/Time: Thursday, August 24, 2017 09:17 - CONCLUSION: 1. Comminuted, mildly displaced fracture of the fibular head. Jaime Toledo MD Knee X-Ray 08/24/17 0859 Signed Impressions: Service Date/Time: Thursday, August 24, 2017 09:42 - CONCLUSION: 1. Comminuted, mildly displaced fracture of the proximal right tibia. 2. The tibial plateaus are intact. There is however it advanced tricompartmental osteoarthritis in the right knee. Jaime Toledo MD Foot X-Ray 08/24/17 0859 Signed Impressions: Service Date/Time: Thursday, August 24, 2017 09:28 - CONCLUSION: 1. No acute fracture or dislocation in the foot. Jay Jay Diamond MD Objective Remarks LLE: +exfix. pin sites clean. traumatic wound closed. 2+swelling. NVI RLE: +exfix. pin sites clean . 2+ swelling. NVI Assessment & Plan Assessment and Plan 1) Left Tibial Pilon Fx s/p Exfix - POD 3 Dr. Tenorio 2) Right Tibial Plateau Fx s/p exfix - POD 3 Dr. Tenorio -leave bandages open so can ice -elevate and ice NPO after MN -Possible surgery on Thursday hold Issac Brooks Jr. Aug 27, 2017 06:34
[2017-08-27] MEDS: GABAPENTIN 300 MG CAP PO SCH ×3 (07:57→18:24)
[2017-08-27] MEDS: DOCUSATE SODIUM 100 MG CAP PO SCH ×2 (07:57→20:49)
[2017-08-27] MEDS: LISINOPRIL 20 MG TAB PO SCH (07:58)
[2017-08-27] MEDS: FAMOTIDINE 20 MG TAB PO SCH ×2 (07:58→20:49)
[2017-08-27] MEDS: DILTIAZEM-CD 180 MG CAP ER PO SCH (07:58)
[2017-08-27] MEDS: SERTRALINE HCL 100 MG TAB PO SCH (07:58)
[2017-08-27] MEDS: SODIUM CHLOR 0.9% 1000 ML INJ 1,000 ML IV SCH (08:00)
[2017-08-27] MEDS ORDERED: ENOXAPARIN SODIUM 30 MG/0.3 ML SYRINGE SQ SCH (08:00)
[2017-08-27] MEDS: LACTULOSE SYRUP 20 GM/30 ML CUP PO SCH (08:00)
[2017-08-27] MEDS: BACITRACIN TOP OINT 15 GM TUBE TOP SCH ×2 (08:01→21:00)
--- NOTE | 2017-08-27 08:30 | HHI.PR ---
Subjective Subjective Notes PTD: 3 Patient lying in bed. No distress noted. On 6 L nasal cannula. No distress noted. Patient states that the pain meds are working to control his pain. Patient is made aware new finding of pulmonary embolism and right middle lobe and that he will be started on a heparin drip. "So that is why I had trouble breathing last night?" Objective Vitals/I&O Vital Signs Date Time Temp Pulse Resp B/P (MAP) Pulse Ox O2 Delivery O2 Flow Rate FiO2 08/27/17 05:30 93 Nasal Cannula 4.50 08/27/17 04:00 99.8 98 18 134/66 (88) Labs Laboratory Tests Test 08/27/17 04:00 White Blood Count 14.3 Red Blood Count 3.14 Hemoglobin 10.1 Hematocrit 29.3 Mean Corpuscular Volume 93.2 Mean Corpuscular Hemoglobin 32.1 Mean Corpuscular Hemoglobin Concent 34.4 Red Cell Distribution Width 12.8 Platelet Count 168 Mean Platelet Volume 7.9 Neutrophils (%) (Auto) 77.0 Lymphocytes (%) (Auto) 13.7 Monocytes (%) (Auto) 7.6 Eosinophils (%) (Auto) 1.3 Basophils (%) (Auto) 0.4 Neutrophils # (Auto) 11.0 Lymphocytes # (Auto) 2.0 Monocytes # (Auto) 1.1 Eosinophils # (Auto) 0.2 Basophils # (Auto) 0.1 CBC Comment DIFF FINAL Differential Comment Blood Urea Nitrogen 15 Creatinine 1.08 Random Glucose 114 Total Protein 6.0 Albumin 3.0 Calcium Level 7.9 Alkaline Phosphatase 57 Aspartate Amino Transf (AST/SGOT) 51 Alanine Aminotransferase (ALT/SGPT) 20 Total Bilirubin 0.6 Sodium Level 141 Potassium Level 4.2 Chloride Level 106 Carbon Dioxide Level 28.7 Anion Gap 6 Estimat Glomerular Filtration Rate 71 Radiology Last 24 hours Impressions Chest X-Ray 08/27/17 0000 Signed Impressions: Service Date/Time: August 06:11 - CONCLUSION: Focal opacity in right midlung has masslike features. Recommend CT thorax for further characterization. Mango Murrell MD Narrative Exam GENERAL: This is a 52-year-old male lying in bed. No distress noted. SKIN: Warm and dry. HEAD: Atraumatic. Normocephalic. EYES: PERRLA ENT: No nasal bleeding or discharge. Mucous membranes pink and moist. NECK: Trachea midline. No JVD. CARDIOVASCULAR: Regular rate and rhythm. RESPIRATORY: O2 - 6L NC No accessory muscle use. Lungs are clear to auscultation. Breath sounds equal bilaterally. No distress or dyspnea. GASTROINTESTINAL: BS + x 4 quads. Abdomen soft, non-tender, nondistended. MUSCULOSKELETAL: Extremities without cyanosis. Right lower extremity with ex- fix in place. Pin sites intact - ice packs in place. Left lower extremity with ex-fix in place - ecchymosis noted to top of foot - edema. Pin sites intact - ice packs in place. + peripheral pulses x 4 extremities. Warm with good capillary refill and sensation. MAEW. NEUROLOGICAL: Awake and alert. Normal speech and pattern. A/P Problem List: (1) Fall from ladder ICD Codes: W11.XXXA - Fall on and from ladder, initial encounter Status: Acute (2) Fracture of right tibial plateau ICD Codes: S82.141A - Displaced bicondylar fracture of right tibia, initial encounter for closed fracture Status: Acute (3) Open fracture of tibia and fibula ICD Codes: S82.209B - Unspecified fracture of shaft of unspecified tibia, initial encounter for open fracture type I or II; S82.409B - Unspecified fracture of shaft of unspecified fibula, initial encounter for open fracture type I or II Status: Acute Assessment and Plan [place]: This is a 52-year-old male who sustained a fall. He fell off a ladder approximately 8 feet landing on both of his feet. No LOC. INJURIES: Open LEFT tib fib fx RIGHT tibial plateau fx PMHx: Depression, HTN Procedures: 08/24: I&D w/ Closed reduction, LEFT distal tibia/fibula pilon fx w/ ex-fix. Closed reduction RIGHT tibial plateau fx w/ ex-fix . 08/28: * ? Return to OR once swelling has decreased Consults: Orthopedics. Case management. Lower extremities still remain too swollen to return to OR with orthopedics. Ortho will evaluate pt each day. Tentative plan os for return to OR for RIGHT leg tomorrow Diet: Regular diet. Tolerating po diet. Encourage good po intake with each meal. Pulmonary: Encourage good pulmonary toileting. IS at bedside and pt encouraged to use. Rationale for use explained to patient, and verbalized understanding. Increased O2 requirements. Sats - 84% on RA. Pt now on simple mask at 8L to maintain sats. STAT Pulmonary angiogram to evaluate for PE. Pt is high risk due to bilateral lower extremity fx with ex-fix, NWB status and inability to wear SCD's for DVT prophylaxis. CTA = pulmonary emboli within the right middle and lower pulmonary artery branches. Begin Heparin gtt per protocol. BUN / creat improved = 15 / 1.08 post NS bolus yesterday. PAIN Management: [place] 10 mg q4h. Morphine 3 mg q 1h. Robaxin 500 mg q 8h. Neurontin 300 mg TID. Sleep: Trazodone 50 mg HS Activity: BR. PT and OT ordered. (NWB BLE) GI prophylaxis: Pepcid 20 mg BID po Bowel regimen: Colace. MOM. . Lactulose. LBM: 0 DVT prophylaxis: Mechanical VTE with SCDs contraindicated due to bilateral ex- fix in place. Chemical management with Lovenox 30 mg BID. DC Planning: Case management consulted for assistance with final discharge disposition. Emotional support provided to patient and family at bedside and plan of care discussed. Discussed with RN at bedside. Discussed pt condition and plan of care with collaborating trauma surgeon. Patient is hemodynamically stable and being managed on the med/surg floor. The trauma team will round each day, and evaluate plan of care on a daily basis. Trauma to the lower extremities Open LEFT tib fib fx RIGHT tibial plateau fx Orthopedics consulted and assisting in management and care 08/24: I&D w/ Closed reduction, LEFT distal tibia/fibula pilon fx w/ ex-fix. Closed reduction RIGHT tibial plateau fx w/ ex-fix 08/28: *Return to the OR once swelling has decreased - will be evaluated each day by orthopedics Supportive care Pain management PT and OT ordered NWB BLE Pin care per orthopedic Antibiotics per orthopedics DVT prophylaxis Lovenox Hypoxia O2 as needed Increase to 8L simple mask to maintain Sats> 90% Aggressive pulmonary toileting Pt c/o pleuritic chest pain SOB Low grade fever CXR with opacity of R mid lung (? mass like features) Suspicious for PE in light of symptoms CT angiogram - STAT for further evaluation and diagnosis CTA shows pulmonary emboli within the right middle and lower lobe pulmonary artery branches Begin heparin drip Problem Qualifiers (1) Fall from ladder: Qualified Codes: W11.XXXA - Fall on and from ladder, initial encounter (2) Fracture of right tibial plateau: (3) Open fracture of tibia and fibula: Vicki Cary Aug 27, 2017 08:30
[2017-08-27] MEDS ORDERED: IOHEXOL 350 MG/ML 10 ML VIAL (for RAD DIAG) IVCONTRAST ONE (10:23)
--- NOTE | 2017-08-27 10:53 | RADRPT ---
EXAM DATE/TIME: 08/27/2017 10:20 [facility] COMPARISON: No previous studies available for comparison. INDICATIONS : Hypoxia with chest pain. IV CONTRAST: 78 cc Omnipaque 350 (iohexol) IV RADIATION DOSE: 23.38 CTDIvol (mGy) MEDICAL HISTORY : Cardiovascular disease. Hypertension. SURGICAL HISTORY : None. ENCOUNTER: Initial ACUITY: 1 day PAIN SCALE: 4/10 LOCATION: Bilateral chest TECHNIQUE: Volumetric scanning of the chest was performed using a pulmonary embolism protocol MIP images were re constructed. Using automated exposure control and adjustment of the mA and/or kV according to patien t size, radiation dose was kept as low as reasonably achievable to obtain optimal diagnostic quality images. DICOM format image data is available electronically for review and comparison. Follow-up recommendations for detected pulmonary nodules are based at a minimum on nodule size and pa tient risk factors according to Fleischner Society Guidelines. FINDINGS: PULMONARY ARTERIES: There is evidence of filling defects within the right middle lobe and right lower lobe pulmonary tremayne ry branches consistent with pulmonary emboli. LUNGS: Posterior infiltrates are noted involving the lower lobes and posterior aspects of the upper lobes bi laterally. There is no pneumothorax . No concerning pulmonary nodule is visualized. PLEURAE: Tiny bilateral pleural effusions are noted. MEDIASTINUM: There is good visualization of the great vessels of the middle mediastinum. No evidence of mediastin al or hilar adenopathy/mass. MUSCULOSKELETAL: Degenerative changes are noted throughout the thoracic spine. MISCELLANEOUS: Liver is mildly prominent and demonstrates fatty infiltration. A tiny 8 mm low density lesion is note d within the right lobe near the dome which is indeterminate. CONCLUSION: 1. Pulmonary emboli within the right middle and lower lobe pulmonary artery branches. 2. Posterior infiltrates within the lower lobes and upper lobes bilaterally. 3. Tiny bilateral pleural effusions. 4. Enlarged fatty liver. 5. 8 mm low-density lesion within the right lobe near the dome which is indeterminate. Keyshawn Child MD on August 27, 2017 at 10:41 Board Certified Radiologist. This report was verified electronically.
[2017-08-27] MEDS ORDERED: HEPARIN-D5W 25,000 U/250 ML 250 ML IV PRN (12:30)
[2017-08-27] MEDS ORDERED: HEPARIN SODIUM - IV 10,000 UNITS/10 ML VIAL IV PUSH ONE (12:30)
[2017-08-27 13:36] LABS: PROTHROMBIN TIME - PATIENT 9.9 SEC (9.8-11.6)
--- NOTE | 2017-08-27 16:05 | RADRPT ---
EXAM DATE/TIME: 08/27/2017 13:46 [facility] COMPARISON: No previous studies available for comparison. INDICATIONS : Bilateral tibia/fibular fractures from fall. MEDICAL HISTORY : Hypertension. Sleep apnea. Cardiac disease. SURGICAL HISTORY : Appendectomy.Total knee replacement, right. ENCOUNTER: Initial ACUITY: 4 - 6 days PAIN SCORE: 7/10 LOCATION: Bilateral Lower extremities TECHNIQUE: Venous ultrasound of the left and right leg was performed from the inguinal ligament to the proximal calf. Real-time, color Doppler and spectral tracing, compression and augmentation techniques were us ed. FINDINGS: RIGHT LEG: There is occlusive thrombus in one of the paired posterior tibial veins in the right calf. The more p roximal deep venous structures are patent and unremarkable. Specifically, no evidence of thrombus in the popliteal, superficial femoral, common femoral or iliac veins.. LEFT LEG: There is normal compressibility of the deep venous system from the inguinal region to the proximal ca lf. No echogenic clot is seen in the lumen of the common femoral, femoral, popliteal, and posterior tibial veins. There is a normal response of the venous system to proximal and distal augmentation an d respiration. CONCLUSION: Right calf DVT. Elvin Moncada MD on August 27, 2017 at 15:59 Board Certified Radiologist. This report was verified electronically.
[2017-08-27] MEDS: traZODone HCL 50 MG TAB PO SCH (20:49)
[2017-08-28] VITALS: BP 140/66; PULSE 88; RESP 20; TEMP 99.5; O2SAT 95
[2017-08-28] MEDS ORDERED: CHLORHEXIDINE GLUCONATE 2 % 1 PACK (2 CLOTHS) TOPICAL PRN (02:15)
[2017-08-28] MEDS ORDERED: SODIUM CHLORID 0.9% 500 ML IV PRN (02:15)
[2017-08-28] MEDS ORDERED: LACTATED RINGER'S 1000 ML IV PRN (02:15)
[2017-08-28] MEDS ORDERED: POVIDONE IODINE 5% (ANTISEPSIS KIT) 4 APPLICATIONS EACH NARE PRN (02:15)
[2017-08-28 04:00] VITALS: BP 147/63; PULSE 82; RESP 20; TEMP 99.7; O2SAT 98
[2017-08-28] MEDS: METHOCARBAMOL 500 MG TAB PO SCH ×3 (05:32→22:43)
--- NOTE | 2017-08-28 06:27 | PD.ORT.PN ---
Subjective Subjective Remarks Resting comfortably with no new complaints Objective Vitals Vital Signs Date Time Temp Pulse Resp B/P (MAP) Pulse Ox O2 Delivery O2 Flow Rate FiO2 08/28/17 04:10 Simple Mask 6.00 08/28/17 04:00 99.7 82 20 147/63 (91) 98 08/28/17 00:00 99.5 88 20 140/66 (90) 95 08/27/17 21:40 95 Nasal Cannula 3.00 08/27/17 20:10 99.8 88 24 153/70 (97) 95 08/27/17 20:00 93 Simple Mask 4.50 08/27/17 17:35 91 Nasal Cannula 3.00 08/27/17 17:20 18 08/27/17 16:25 100.5 92 24 151/73 (99) 94 08/27/17 15:17 17 08/27/17 12:00 96.4 80 18 130/66 (87) 95 08/27/17 08:45 2.00 08/27/17 08:00 96.2 83 18 118/65 (82) 93 I/O 08/27/17 08/27/17 08/27/17 08/28/17 08/28/17 08/28/17 07:00 15:00 23:00 07:00 15:00 23:00 Intake Total 480 ml 155 ml Output Total 600 ml Balance -120 ml 155 ml Intake Oral 480 ml IV Total 155 ml Output Urine Total 600 ml Result Diagram: 08/27/17 0400 08/27/17 0400 Other Results Laboratory Tests Test 08/27/17 13:14 Prothromb Time International Ratio 1.0 RATIO Prothrombin Time 9.9 SEC (9.8-11.6) Imaging Last 24 hours Impressions Tibia/Fibula X-Ray 08/24/17 0859 Signed Impressions: Service Date/Time: Thursday, August 24, 2017 09:42 - CONCLUSION: 1. Comminuted fracture of the proximal right tibia, as above. Jay Jay Diamond MD Tibia/Fibula X-Ray 08/24/17 0859 Signed Impressions: Service Date/Time: Thursday, August 24, 2017 09:17 - CONCLUSION: 1. Severely comminuted fracture involving the distal tibia the distal tibia with essentially shattered. The ankle mortise itself is intact. 2. Angulated fracture involving the distal fibula. 3. There are several bone fragments adjacent to the fibular head is below the knee consistent with mildly comminuted fracture of the proximal fibular head as well. Jaime Toledo MD Knee X-Ray 08/24/17 0859 Signed Impressions: Service Date/Time: Thursday, August 24, 2017 09:17 - CONCLUSION: 1. Comminuted, mildly displaced fracture of the fibular head. Jaime Toledo MD Knee X-Ray 08/24/17 0859 Signed Impressions: Service Date/Time: Thursday, August 24, 2017 09:42 - CONCLUSION: 1. Comminuted, mildly displaced fracture of the proximal right tibia. 2. The tibial plateaus are intact. There is however it advanced tricompartmental osteoarthritis in the right knee. Jaime Toledo MD Foot X-Ray 08/24/17 0859 Signed Impressions: Service Date/Time: Thursday, August 24, 2017 09:28 - CONCLUSION: 1. No acute fracture or dislocation in the foot. Jay Jay Diamond MD Objective Remarks LLE: +exfix. pin sites clean. traumatic wound closed. 2+swelling. NVI RLE: +exfix. pin sites clean . 1+ swelling. NVI Assessment & Plan Assessment and Plan 1) Left Tibial Pilon Fx s/p Exfix - POD 4 Dr. Tenorio 2) Right Tibial Plateau Fx s/p exfix - POD 4 Dr. Tenorio -leave bandages open so can ice -elevate and ice NPO -surgery today hold Issac Brooks Jr. Aug 28, 2017 06:27
[2017-08-28] MEDS ORDERED: GENTAMICIN SULFATE 80 MG/2 ML VIAL ONE (06:47)
[2017-08-28] MEDS ORDERED: SODIUM CHLOR 0.9% 250 ML INJ 250 ML ONE (06:47)
[2017-08-28] MEDS ORDERED: VANCOMYCIN HCL 1000 MG VIAL ONE (06:47)
[2017-08-28] MEDS ORDERED: ACETAMINOPHEN 1000 MG/100 ML 100 ML IV ONE (07:52)
[2017-08-28] MEDS: LACTATED RINGER'S 1000 ML INJ 1,000 ML IV SCH ×2 (08:28→20:35)
[2017-08-28] MEDS ORDERED: Post-op Orders (for Pharmacy) XX ONE (08:30)
--- NOTE | 2017-08-28 08:35 | PD.OP ---
cc: Davon Gibbs MD Operative Report Date of Surgery: Aug 28, 2017 Preoperative Diagnosis: Displaced right proximal tibia plateau fracture Postoperative Diagnosis: Procedure: Removal of external fixation, open reduction and fixation right proximal tibia Anesthesia: Gen. Surgeon: Davon Gibbs Stake Setter(s): JASS Cotton PA-C The surgical procedure was assisted by my physician gynecological assistant. My P.A. presence was necessary throughout this case for the manipulation and positioning of the surgical extremity. My P.A. was assisting me throughout the duration of this procedure. The skill set of a physician gynecological assistant was medically necessary to complete this procedure. During the surgical case the natural gas plant technician was working at the back table and the physician gynecological assistant was directly assisting me. Operation and Findings: Implants used: ITS Plan of activity: Nonweightbearing right leg, no leg lifts or quad sets This patient was seen and evaluated preoperatively. Patient sustained an injury resulting a right tibial plateau fracture and left tibia pilon fracture. Informed consent was obtained preoperatively after detailed discussion of the risks and benefits of surgery. Risk of surgery including bleeding, infection, nonunion, painful hardware, stiffness, loss of motion, arthritis, need for knee replacement, as well as medical complications including blood clots, stroke, heart attack, and were discussed. I also discussed the possibility of using allograft bone graft . Preoperatively the operative site was marked. Patient was brought to the operating room and placed on the operating room table. Intravenous sedation and general endotracheal anesthesia were administered. IV antibiotics were given and a time out procedure was preformed. Procedure began with removal of the external fixation. Clamps were loosened. Clamps and bars were now removed from the pins. Pins were left in place at this time. The right leg was prepped with alcohol followed by Hibiclens and draped in the usual sterile fashion. Procedure began with a 3-inch curvilinear incision over the anterolateral knee. Subcutaneous tissue was treated with Bovie. Iliotibial band was split in line with fibers. The iliotibial band was very thin and had some tearing from traumatic injury. At this point attention was turned to reduction. Traction was applied. Fracture was manipulated. Fracture tenaculums were placed to compress fracture. Fracture reduced and excellent alignment. An ITS proximal tibial plate was selected. The plate was placed underneath the anterior tibialis muscle and a percutaneous fashion. The plate was provisionally held with K-wires. Fluoroscopy was used to confirm appropriate plate placement and fracture alignment. 4.5 cortical screws were used compress plate to bone distally, and a periarticular clamp was used to compress the medial and lateral tibial plateau fracture fragments together. 2 lag screws were placed proximally to compress the fracture. Multiple locking screws were now placed proximally. Additional cortical screws were placed in the shaft. K-wires were removed. Final fluoroscopy showed excellent alignment of fracture with well-placed hardware. The incision was thoroughly irrigated. Iliotibial band closed with #1 Vicryl,. Subcutaneous tissues closed with 3-0 Vicryl and skin was closed with re. Sterile dressings were applied. The patient was transferred to recovery in stable condition. Davon Gibbs MD Aug 28, 2017 08:35
[2017-08-28] MEDS ORDERED: *RESP: ALBUTEROL 2.5 MG/3 ML NEB (PRN) PERIprocedural Use ONLY NEB ONE (09:00)
[2017-08-28] MEDS: GABAPENTIN 300 MG CAP PO SCH ×3 (09:00→18:54)
[2017-08-28] MEDS: LACTULOSE SYRUP 20 GM/30 ML CUP PO SCH (09:00)
[2017-08-28] MEDS: FAMOTIDINE 20 MG TAB PO SCH ×2 (09:00→20:35)
[2017-08-28] MEDS: BACITRACIN TOP OINT 15 GM TUBE TOP SCH ×2 (09:00→21:00)
[2017-08-28] MEDS: DOCUSATE SODIUM 100 MG CAP PO SCH ×2 (09:00→20:35)
[2017-08-28] MEDS ORDERED: MIDAZOLAM HCL 2 MG/2 ML VIAL ONE (09:07)
[2017-08-28] MEDS ORDERED: *morphine SULFATE 10 MG/ML PERIprocedure ONLY ONE ×2 (09:22→09:58)
[2017-08-28] MEDS ORDERED: HEPARIN-D5W 25,000 U/250 ML 250 ML IV PRN ×2 (09:45→12:00)
[2017-08-28 09:56] VITALS: O2SAT 95
[2017-08-28] MEDS ORDERED: DO NOT ADM ANY ANTICOAGULANT DRUGS PRN (10:00)
[2017-08-28] MEDS: MORPHINE SULFATE 4 MG/ML INJ IV PRN ×5 (11:14→21:37)
[2017-08-28] MEDS: LISINOPRIL 20 MG TAB PO SCH (11:17)
[2017-08-28] MEDS: CHOLECALCIFEROL (VIT D3) 1000 UNIT TAB PO SCH (11:17)
[2017-08-28] MEDS: ERGOCALCIFEROL (VIT D2) 50,000 UNIT CAP PO SCH (11:17)
[2017-08-28] MEDS: SERTRALINE HCL 100 MG TAB PO SCH (11:17)
[2017-08-28] MEDS: DILTIAZEM-CD 180 MG CAP ER PO SCH (11:18)
[2017-08-28] MEDS: ACETAMINOPHEN/HYDROcodone 325 MG/10 MG TAB PO PRN ×3 (11:58→20:38)
[2017-08-28 12:00] VITALS: BP 146/77; PULSE 97; RESP 18; TEMP 99.1; O2SAT 93
[2017-08-28] MEDS ORDERED: LIDOCAINE HCL 1% PF 5 ML SYRINGE OTHER ONE (12:00)
[2017-08-28] MEDS ORDERED: METOPROLOL TARTRATE 5 MG/5 ML VIAL IV ONE (12:00)
[2017-08-28] MEDS ORDERED: ONDANSETRON HCL 4 MG/2 ML VIAL IV PUSH ONE (12:00)
[2017-08-28] MEDS ORDERED: PHENYLEPH/NS 1000 MCG/10 ML SYR IV ONE (12:00)
[2017-08-28] MEDS ORDERED: PROPOFOL 200 MG/20 ML AMP IV ONE (12:00)
[2017-08-28] MEDS: diphenhydrAMINE HCL 25 MG CAP PO PRN (14:12)
--- NOTE | 2017-08-28 14:56 | HHI.PR ---
Subjective Subjective Notes S/P removal of external fixation, ORIF right proximal tibia Resume Heparin gtt post-op + BM yesterday per patient Objective Vitals/I&O Vital Signs Date Time Temp Pulse Resp B/P (MAP) Pulse Ox O2 Delivery O2 Flow Rate FiO2 08/28/17 12:00 99.1 97 18 146/77 (100) 93 08/28/17 10:45 Nasal Cannula 4 08/28/17 10:15 40 Labs Laboratory Tests Test 08/28/17 00:22 Activated Partial Thromboplast Time 67.5 Radiology Last 24 hours Impressions Chest X-Ray 08/27/17 0000 Signed Impressions: Service Date/Time: August 06:11 - CONCLUSION: Focal opacity in right midlung has masslike features. Recommend CT thorax for further characterization. Mango Murrell MD Narrative Exam GENERAL: 52-year-old well-nourished, well-developed male lying in bed in no acute distress. SKIN: Warm and dry. HEAD: Normocephalic. EYES: Pupils equal round and reactive bilaterally. ENT: No nasal bleeding or discharge. Mucous membranes pink and moist. NECK: Trachea midline. No JVD. CARDIOVASCULAR: Regular rate and rhythm. RESPIRATORY: Lungs are clear to auscultation. Breath sounds equal bilaterally. 3L NC. GASTROINTESTINAL: Abdomen soft, non-tender, nondistended. + BS MUSCULOSKELETAL: Extremities without cyanosis, + 2 RLE edema. Left lower extremity with ex-fix in place, pin sites clean. RLE with samira wrap in place. + perfused, MAEW. NEUROLOGICAL: Awake and alert. Normal speech. A/P Problem List: (1) Fall from ladder ICD Codes: W11.XXXA - Fall on and from ladder, initial encounter Status: Acute (2) Fracture of right tibial plateau ICD Codes: S82.141A - Displaced bicondylar fracture of right tibia, initial encounter for closed fracture Status: Acute (3) Open fracture of tibia and fibula ICD Codes: S82.209B - Unspecified fracture of shaft of unspecified tibia, initial encounter for open fracture type I or II; S82.409B - Unspecified fracture of shaft of unspecified fibula, initial encounter for open fracture type I or II Status: Acute Discharge Planning AKIAK: Fell off a ladder approximately 8 feet landing on both feet. No LOC. INJURIES: Open LEFT tib fib fx RIGHT tibial plateau fx 08/24: I&D w/ Closed reduction, LEFT distal tibia/fibula pilon fx w/ ex-fix. Closed reduction RIGHT tibial plateau fx w/ ex-fix placement. 08/27: Pulmonary embolus RML, RLL 08/28: Removal of external fixation, open reduction and fixation right proximal tibia Open LEFT tib fib fx, RIGHT tibial plateau fx Orthopedics consulted 08/24: I&D w/ Closed reduction, LEFT distal tibia/fibula pilon fx w/ ex-fix. Closed reduction RIGHT tibial plateau fx w/ ex-fix 08/28: Removal of external fixation, open reduction and fixation right proximal tibia Pain control Bowel regimen PT and OT ordered NWB BLE Pin care twice a day IV abx: Ancef, Vanco until 08/29 Pulmonary embolus CTA shows pulmonary emboli within the right middle and lower lobe pulmonary artery branches Heparin drip per protocol Resume postop HTN Resumed home meds: Cardizem. Lisinopril Plan of care discussed with patient and RN at bedside. Collaborating trauma MBeatris agrees with plan. Case management consulted to assist with discharge planning. Problem Qualifiers (1) Fall from ladder: Qualified Codes: W11.XXXA - Fall on and from ladder, initial encounter (2) Fracture of right tibial plateau: (3) Open fracture of tibia and fibula: Olga Chaidez Aug 28, 2017 14:56
[2017-08-28] MEDS: HEPARIN-D5W 25,000 U/250 ML 250 ML IV SCH (15:46)
[2017-08-28 16:00] VITALS: BP 127/61; PULSE 86; RESP 18; TEMP 99.3; O2SAT 93
[2017-08-28 17:06] LABS: HEMATOCRIT 28.2 % (39.0-51.0); HEMOGLOBIN 9.4 GM/DL (13.0-17.0); MEAN CELL VOLUME 93.9 FL (80.0-100.0); MEAN CORPUSCULAR HEMOGLOBIN 31.4 PG (27.0-34.0); MEAN CORPUSCULAR HGB CONC 33.5 % (32.0-36.0); MEAN PLATELET VOLUME 8.2 FL (7.0-11.0); PLATELET COUNT 211 TH/MM3 (150-450); RED CELL DISTRIBUTION WIDTH 12.9 % (11.6-17.2); WHITE BLOOD COUNT 13.6 TH/MM3 (4.0-11.0)
[2017-08-28] MEDS: CEFAZOLIN INJ 2,000 MG in SODIUM CHLORIDE 0.9% INJ 100 ML IV SCH ×2 (18:54→22:45)
--- NOTE | 2017-08-28 19:49 | RADRPT ---
EXAM DATE/TIME: 08/28/2017 08:15 [facility] COMPARISON: No previous studies available for comparison. INDICATIONS : Fracture- ORIF tibial plateau. MEDICAL HISTORY : None. SURGICAL HISTORY : None. ENCOUNTER: Initial ACUITY: 1 day PAIN SCORE: Non-responsive. LOCATION: Right Lower leg. FINDINGS: There is fixation of the right tibia. Near anatomic alignment. No complications identified. CONCLUSION: 1. Fixation right tibia. Freddy De La Paz MD on August 28, 2017 at 19:46 Board Certified Radiologist. This report was verified electronically.
[2017-08-28 20:00] VITALS: BP 145/67; PULSE 89; RESP 18; TEMP 98.2; O2SAT 94
[2017-08-28] MEDS: traZODone HCL 50 MG TAB PO SCH (20:35)
[2017-08-28] MEDS: VANCOMYCIN INJ 1,000 MG in SODIUM CHLOR 0.9% 250 ML INJ 250 ML IV SCH (20:39)
[2017-08-29] VITALS (8 sets, daily range): BP systolic 113–155; BP diastolic 57–73; PULSE 80–102; RESP 16–18; TEMP 97.6–101.2; O2SAT 92–98
[2017-08-29] MEDS: ACETAMINOPHEN/HYDROcodone 325 MG/10 MG TAB PO PRN ×6 (00:12→23:37)
[2017-08-29] MEDS: MORPHINE SULFATE 4 MG/ML INJ IV PRN ×4 (03:04→20:35)
[2017-08-29 04:59] LABS: HEMATOCRIT 25.8 % (39.0-51.0); HEMOGLOBIN 8.8 GM/DL (13.0-17.0)
[2017-08-29] MEDS: HEPARIN-D5W 25,000 U/250 ML 250 ML IV SCH ×2 (05:42→21:48)
[2017-08-29] MEDS: METHOCARBAMOL 500 MG TAB PO SCH ×3 (05:44→20:40)
[2017-08-29] MEDS: CEFAZOLIN INJ 2,000 MG in SODIUM CHLORIDE 0.9% INJ 100 ML IV SCH ×3 (06:32→23:19)
--- NOTE | 2017-08-29 06:44 | PD.ORT.PN ---
Subjective Subjective Remarks Resting comfortably with no new complaints Objective Vitals Vital Signs Date Time Temp Pulse Resp B/P (MAP) Pulse Ox O2 Delivery O2 Flow Rate FiO2 08/29/17 04:25 97.9 80 18 113/57 (75) 93 08/29/17 00:00 101.2 89 18 138/65 (89) 93 08/28/17 20:00 98.2 89 18 145/67 (93) 94 08/28/17 20:00 94 4.00 08/28/17 16:00 99.3 86 18 127/61 (83) 93 08/28/17 12:00 99.1 97 18 146/77 (100) 93 08/28/17 11:10 Nasal Cannula 4.00 08/28/17 10:45 92 20 144/74 (97) 93 Nasal Cannula 4 08/28/17 10:30 89 20 138/73 (94) 93 Nasal Cannula 4 08/28/17 10:15 89 20 143/71 (95) 96 Bi-Pap 40 08/28/17 10:00 90 20 152/78 (102) 94 Bi-Pap 40 08/28/17 09:56 95 40 08/28/17 09:45 92 20 152/75 (100) 93 Bi-Pap 40 08/28/17 09:30 95 20 156/81 (106) 91 Bi-Pap 40 08/28/17 09:15 92 20 165/81 (109) 91 08/28/17 09:00 92 20 160/77 (104) 90 Simple Mask 6 08/28/17 08:50 100.0 92 20 135/72 (93) 91 Simple Mask 6 I/O 08/28/17 08/28/17 08/28/17 08/29/17 08/29/17 08/29/17 07:00 15:00 23:00 07:00 15:00 23:00 Intake Total 395 ml 600 ml 1490 ml 580 ml Output Total 400 ml 50 ml 550 ml Balance -5 ml 550 ml 940 ml 580 ml Intake Oral 240 ml 240 ml 480 ml IV Total 155 ml 1250 ml 100 ml Other 600 ml Output Urine Total 400 ml 550 ml Estimated Blood Loss 50 ml # Voids 1 # Bowel Movements 0 0 0 Result Diagram: 08/29/17 0400 08/27/17 0400 Imaging Last 24 hours Impressions Tibia/Fibula X-Ray 08/24/17 0859 Signed Impressions: Service Date/Time: Thursday, August 24, 2017 09:42 - CONCLUSION: 1. Comminuted fracture of the proximal right tibia, as above. Jay Jay Diamond MD Tibia/Fibula X-Ray 08/24/17 0859 Signed Impressions: Service Date/Time: Thursday, August 24, 2017 09:17 - CONCLUSION: 1. Severely comminuted fracture involving the distal tibia the distal tibia with essentially shattered. The ankle mortise itself is intact. 2. Angulated fracture involving the distal fibula. 3. There are several bone fragments adjacent to the fibular head is below the knee consistent with mildly comminuted fracture of the proximal fibular head as well. Jaime Toledo MD Knee X-Ray 08/24/17 0859 Signed Impressions: Service Date/Time: Thursday, August 24, 2017 09:17 - CONCLUSION: 1. Comminuted, mildly displaced fracture of the fibular head. Jaime Toledo MD Knee X-Ray 08/24/17 0859 Signed Impressions: Service Date/Time: Thursday, August 24, 2017 09:42 - CONCLUSION: 1. Comminuted, mildly displaced fracture of the proximal right tibia. 2. The tibial plateaus are intact. There is however it advanced tricompartmental osteoarthritis in the right knee. Jaime Toledo MD Foot X-Ray 08/24/17 0859 Signed Impressions: Service Date/Time: Thursday, August 24, 2017 09:28 - CONCLUSION: 1. No acute fracture or dislocation in the foot. Jay Jay Diamond MD Objective Remarks LLE: +exfix. pin sites clean. traumatic wound closed. 2+swelling. NVI RLE: Bubba dry dressings intact. Mild swelling over lower leg. Intact sensation distally with active dorsiflexion plantar flexion of foot Assessment & Plan Assessment and Plan 1) Left Tibial Pilon Fx s/p Exfix - POD 5 Dr. Tenorio 2) Right Tibial Plateau Fx ORIF POD 1 Nonweightbearing right lower extremity PT for passive range of motion of knee and passive and active range of motion of ankle Daily dressing changes beginning POD 2 to right lower extremity Continue pin care twice a day and daily dressing changes to left lower extremity Continue elevation and ice to decrease swelling Anticipate swelling to be improved for surgery on Thursday or Thursday for tibial pilon Jovanny, incentive spirometry Issac Che Jr. Aug 29, 2017 06:43
[2017-08-29] MEDS ORDERED: HEPARIN-D5W 25,000 U/250 ML 250 ML IV PRN (08:00)
[2017-08-29] MEDS: DOCUSATE SODIUM 100 MG CAP PO SCH ×2 (09:00→20:41)
[2017-08-29] MEDS: LACTULOSE SYRUP 20 GM/30 ML CUP PO SCH (09:00)
[2017-08-29] MEDS: FAMOTIDINE 20 MG TAB PO SCH ×2 (09:00→20:39)
[2017-08-29] MEDS: LACTATED RINGER'S 1000 ML INJ 1,000 ML IV SCH ×2 (09:28→23:21)
[2017-08-29] MEDS: SERTRALINE HCL 100 MG TAB PO SCH (09:51)
[2017-08-29] MEDS: VANCOMYCIN INJ 1,000 MG in SODIUM CHLOR 0.9% 250 ML INJ 250 ML IV SCH ×2 (09:51→20:41)
[2017-08-29] MEDS: DILTIAZEM-CD 180 MG CAP ER PO SCH (09:51)
[2017-08-29] MEDS: GABAPENTIN 300 MG CAP PO SCH ×3 (09:51→17:20)
[2017-08-29] MEDS: LISINOPRIL 20 MG TAB PO SCH (09:52)
[2017-08-29] MEDS: CHOLECALCIFEROL (VIT D3) 1000 UNIT TAB PO SCH (09:52)
[2017-08-29] MEDS: BACITRACIN TOP OINT 15 GM TUBE TOP SCH ×2 (13:33→23:20)
[2017-08-29] MEDS ORDERED: MAGNESIUM CITRATE SOLN 300 ML BTL PO ONE (14:00)
[2017-08-29] MEDS ORDERED: fentaNYL 50 MCG/HR PATCH T-DERMAL SCH (14:00)
--- NOTE | 2017-08-29 14:04 | HHI.PR ---
Subjective Subjective Notes Increased pain overnight Orthopedics tentatively planning surgery on LLE for Thursday Heparin gtt continues Objective Vitals/I&O Vital Signs Date Time Temp Pulse Resp B/P (MAP) Pulse Ox O2 Delivery O2 Flow Rate FiO2 08/29/17 08:00 97.6 88 16 147/63 (91) 93 08/28/17 20:00 4.00 08/28/17 11:10 Nasal Cannula 08/28/17 10:15 40 Labs Laboratory Tests Test 08/28/17 16:25 08/28/17 21:36 08/29/17 04:00 White Blood Count 13.6 Red Blood Count 3.00 Hemoglobin 9.4 8.8 Hematocrit 28.2 25.8 Mean Corpuscular Volume 93.9 Mean Corpuscular Hemoglobin 31.4 Mean Corpuscular Hemoglobin Concent 33.5 Red Cell Distribution Width 12.9 Platelet Count 211 Mean Platelet Volume 8.2 Activated Partial Thromboplast Time 31.7 57.5 Radiology Last 24 hours Impressions Chest X-Ray 08/27/17 0000 Signed Impressions: Service Date/Time: August 06:11 - CONCLUSION: Focal opacity in right midlung has masslike features. Recommend CT thorax for further characterization. Mango Murrell MD Narrative Exam GENERAL: 52-year-old well-nourished, well-developed male lying in bed in no acute distress. SKIN: Warm and dry. HEAD: Normocephalic. EYES: Pupils equal round and reactive bilaterally. ENT: No nasal bleeding or discharge. Mucous membranes pink and moist. NECK: Trachea midline. No JVD. CARDIOVASCULAR: Regular rate and rhythm. RESPIRATORY: Lungs are clear to auscultation. Breath sounds equal bilaterally. 3L NC. GASTROINTESTINAL: Abdomen soft, non-tender, nondistended. + BS MUSCULOSKELETAL: Extremities without cyanosis, + 2 BLE edema. Left lower extremity with ex-fix in place, pin sites clean. RLE with samira wrap in place. + perfused, MAEW. NEUROLOGICAL: Awake and alert. Normal speech. A/P Problem List: (1) Fall from ladder ICD Codes: W11.XXXA - Fall on and from ladder, initial encounter Status: Acute (2) Fracture of right tibial plateau ICD Codes: S82.141A - Displaced bicondylar fracture of right tibia, initial encounter for closed fracture Status: Acute (3) Open fracture of tibia and fibula ICD Codes: S82.209B - Unspecified fracture of shaft of unspecified tibia, initial encounter for open fracture type I or II; S82.409B - Unspecified fracture of shaft of unspecified fibula, initial encounter for open fracture type I or II Status: Acute Discharge Planning LIME: Fell off a ladder approximately 8 feet landing on both feet. No LOC. INJURIES: Open LEFT tib fib fx RIGHT tibial plateau fx 08/24: I&D w/ Closed reduction, LEFT distal tibia/fibula pilon fx w/ ex-fix. Closed reduction RIGHT tibial plateau fx w/ ex-fix placement. 08/27: Pulmonary embolus RML, RLL 08/28: Removal of external fixation, open reduction and fixation right proximal tibia Open LEFT tib fib fx, RIGHT tibial plateau fx Orthopedics consulted 08/24: I&D w/ Closed reduction, LEFT distal tibia/fibula pilon fx w/ ex-fix. Closed reduction RIGHT tibial plateau fx w/ ex-fix 08/28: Removal of external fixation, open reduction and fixation right proximal tibia Pain control- added fentanyl patch for better pain control Bowel regimen- Patient reports + BM but not documented PT and OT ordered NWB BLE Pin care BID IV abx: Ancef, Vanco until 08/29 Pulmonary embolus CTA shows pulmonary emboli within the right middle and lower lobe pulmonary artery branches Heparin drip per protocol O2 PRN HTN Resumed home meds: Cardizem. Lisinopril Plan of care discussed with patient and family at bedside. Collaborating trauma M.D. agrees with plan. Case management consulted to assist with discharge planning. Problem Qualifiers (1) Fall from ladder: Qualified Codes: W11.XXXA - Fall on and from ladder, initial encounter (2) Fracture of right tibial plateau: (3) Open fracture of tibia and fibula: Olga Chaidez Aug 29, 2017 14:04
[2017-08-29] MEDS: fentaNYL 50 MCG/HR PATCH T-DERMAL SCH (14:30)
[2017-08-29] MEDS: traZODone HCL 50 MG TAB PO SCH (20:40)
[2017-08-29] MEDS: SODIUM CHLORIDE 0.9% FLUSH 10 ML FLUSH IV FLUSH PRN (23:19)
[2017-08-30] VITALS (10 sets, daily range): BP systolic 132–154; BP diastolic 64–70; PULSE 81–97; RESP 18–19; TEMP 97.6–99.7; O2SAT 90–95
[2017-08-30] MEDS: METHOCARBAMOL 500 MG TAB PO SCH ×3 (06:27→20:43)
[2017-08-30] MEDS ORDERED: BISACODYL EC 5 MG TABEC PO ONE (07:00)
[2017-08-30] MEDS ORDERED: BISACODYL 10 MG SUPP RECTAL ONE (07:00)
[2017-08-30 07:11] LABS: HEMATOCRIT 26.4 % (39.0-51.0); MEAN CELL VOLUME 94.3 FL (80.0-100.0); MEAN CORPUSCULAR HEMOGLOBIN 32.1 PG (27.0-34.0); PLATELET COUNT 231 TH/MM3 (150-450); RED CELL DISTRIBUTION WIDTH 12.7 % (11.6-17.2); WHITE BLOOD COUNT 12.1 TH/MM3 (4.0-11.0)
--- NOTE | 2017-08-30 07:20 | PD.ORT.PN ---
Subjective Subjective Remarks Resting comfortably with no new complaints Objective Vitals Vital Signs Date Time Temp Pulse Resp B/P (MAP) Pulse Ox O2 Delivery O2 Flow Rate FiO2 08/30/17 03:30 98.6 81 18 132/64 (86) 93 08/30/17 00:10 99.1 97 18 154/70 (98) 92 08/29/17 21:13 93 Nasal Cannula 4.00 08/29/17 21:10 99.8 94 18 155/68 (97) 94 08/29/17 19:50 94 Nasal Cannula 4.00 08/29/17 16:00 100.3 99 16 143/67 (92) 92 08/29/17 12:00 100.6 102 18 154/73 (100) 93 08/29/17 10:45 98 Nasal Cannula 4.00 08/29/17 08:00 97.6 88 16 147/63 (91) 93 I/O 08/29/17 08/29/17 08/29/17 08/30/17 08/30/17 08/30/17 07:00 15:00 23:00 07:00 15:00 23:00 Intake Total 1468 ml 498 ml 700 ml 720 ml Output Total 1400 ml 1000 ml Balance 1468 ml 498 ml -700 ml -280 ml Intake Oral 480 ml 700 ml 720 ml IV Total 988 ml 498 ml Output Urine Total 1400 ml 1000 ml # Voids 1 # Bowel Movements 0 0 Result Diagram: 08/30/17 0553 08/27/17 0400 Imaging Last 24 hours Impressions Tibia/Fibula X-Ray 08/24/17 0859 Signed Impressions: Service Date/Time: Thursday, August 24, 2017 09:42 - CONCLUSION: 1. Comminuted fracture of the proximal right tibia, as above. Jay Jay Diamond MD Tibia/Fibula X-Ray 08/24/17 0859 Signed Impressions: Service Date/Time: Thursday, August 24, 2017 09:17 - CONCLUSION: 1. Severely comminuted fracture involving the distal tibia the distal tibia with essentially shattered. The ankle mortise itself is intact. 2. Angulated fracture involving the distal fibula. 3. There are several bone fragments adjacent to the fibular head is below the knee consistent with mildly comminuted fracture of the proximal fibular head as well. Jaime Toledo MD Knee X-Ray 08/24/17 0859 Signed Impressions: Service Date/Time: Thursday, August 24, 2017 09:17 - CONCLUSION: 1. Comminuted, mildly displaced fracture of the fibular head. Jaime Toledo MD Knee X-Ray 08/24/1759 Signed Impressions: Service Date/Time: Thursday, August 24, 2017 09:42 - CONCLUSION: 1. Comminuted, mildly displaced fracture of the proximal right tibia. 2. The tibial plateaus are intact. There is however it advanced tricompartmental osteoarthritis in the right knee. Jaime Toledo MD Foot X-Ray 08/24/1759 Signed Impressions: Service Date/Time: Thursday, August 24, 2017 09:28 - CONCLUSION: 1. No acute fracture or dislocation in the foot. Jay Jay Diamond MD Objective Remarks LLE: +exfix. pin sites clean. traumatic wound closed. 2+swelling. NVI RLE: Bubba dry dressings intact. Mild swelling over lower leg. Intact sensation distally with active dorsiflexion plantar flexion of foot Assessment & Plan Assessment and Plan 1) Left Tibial Pilon Fx s/p Exfix - POD 6 Dr. Tenorio 2) Right Tibial Plateau Fx ORIF POD 2 Nonweightbearing right lower extremity PT for passive range of motion of knee and passive and active range of motion of ankle Daily dressing changes beginning POD 2 to right lower extremity Continue pin care twice a day and daily dressing changes to left lower extremity Continue elevation and ice to decrease swelling Anticipate swelling to be improved for surgery on Thursday for tibial pilon gee Petty Michael L. Jr. PA Aug 30, 2017 07:20
[2017-08-30] MEDS: CEFAZOLIN INJ 2,000 MG in SODIUM CHLORIDE 0.9% INJ 100 ML IV SCH (08:09)
[2017-08-30] MEDS: MORPHINE SULFATE 4 MG/ML INJ IV PRN ×2 (08:50→15:21)
[2017-08-30] MEDS: ACETAMINOPHEN/HYDROcodone 325 MG/10 MG TAB PO PRN ×3 (08:52→22:03)
[2017-08-30] MEDS: GABAPENTIN 300 MG CAP PO SCH ×3 (08:57→17:44)
[2017-08-30] MEDS: SERTRALINE HCL 100 MG TAB PO SCH (08:57)
[2017-08-30] MEDS: DOCUSATE SODIUM 100 MG CAP PO SCH ×2 (08:57→20:43)
[2017-08-30] MEDS: DILTIAZEM-CD 180 MG CAP ER PO SCH (08:57)
[2017-08-30] MEDS: CHOLECALCIFEROL (VIT D3) 1000 UNIT TAB PO SCH (08:57)
[2017-08-30] MEDS: LISINOPRIL 20 MG TAB PO SCH (08:57)
[2017-08-30] MEDS: FAMOTIDINE 20 MG TAB PO SCH ×2 (08:57→20:43)
[2017-08-30] MEDS: LACTULOSE SYRUP 20 GM/30 ML CUP PO SCH (09:00)
--- NOTE | 2017-08-30 09:07 | HHI.PR ---
Subjective Subjective Notes PTD: 6 Patient lying in bed with blanket over his head. On his own CPAP machine. "I got no sleep last night. That pump kept beeping all night long - every 5 minutes." "They were supposed to bring me my pills for my pain, but hasn't happened yet." Objective Vitals/I&O Vital Signs Date Time Temp Pulse Resp B/P (MAP) Pulse Ox O2 Delivery O2 Flow Rate FiO2 08/30/17 08:15 92 Nasal Cannula 4.00 08/30/17 07:36 97.6 92 18 139/69 (92) 08/28/17 10:15 40 Labs Laboratory Tests Test 08/29/17 15:19 08/30/17 05:53 Activated Partial Thromboplast Time 41.3 37.9 White Blood Count 12.1 Red Blood Count 2.80 Hemoglobin 9.0 Hematocrit 26.4 Mean Corpuscular Volume 94.3 Mean Corpuscular Hemoglobin 32.1 Mean Corpuscular Hemoglobin Concent 34.0 Red Cell Distribution Width 12.7 Platelet Count 231 Mean Platelet Volume 8.0 Radiology Last 72 hours Impressions Tibia/Fibula X-Ray 08/28/17 0000 Signed Impressions: Service Date/Time: Monday, August 28, 2017 08:15 - CONCLUSION: 1. Fixation right tibia. Freddy De La Paz MD Narrative Exam GENERAL: This is a 52-year-old male lying in bed. No distress noted. SKIN: Warm and dry. HEAD: Atraumatic. Normocephalic. EYES: PERRLA ENT: No nasal bleeding or discharge. Mucous membranes pink and moist. NECK: Trachea midline. No JVD. CARDIOVASCULAR: Regular rate and rhythm. RESPIRATORY: On home CPAP machine. No accessory muscle use. Lungs are clear to auscultation. Breath sounds equal bilaterally. No distress or dyspnea. GASTROINTESTINAL: BS + x 4 quads. Abdomen soft, non-tender, nondistended. MUSCULOSKELETAL: Extremities without cyanosis. Right lower extremity wrapped with Dino bandage. Left lower extremity with ex-fix in place - slight ecchymosis noted to top of foot - edema. Pin sites intact. + peripheral pulses x 4 extremities. Warm with good capillary refill and sensation. MAEW. NEUROLOGICAL: Awake and alert. Normal speech and pattern. A/P Problem List: (1) Fall from ladder ICD Codes: W11.XXXA - Fall on and from ladder, initial encounter Status: Acute (2) Fracture of right tibial plateau ICD Codes: S82.141A - Displaced bicondylar fracture of right tibia, initial encounter for closed fracture Status: Acute (3) Open fracture of tibia and fibula ICD Codes: S82.209B - Unspecified fracture of shaft of unspecified tibia, initial encounter for open fracture type I or II; S82.409B - Unspecified fracture of shaft of unspecified fibula, initial encounter for open fracture type I or II Status: Acute Assessment and Plan CAHUILLA: This is a 52-year-old male who sustained a fall. He fell off a ladder approximately 8 feet landing on both of his feet. No LOC. INJURIES: Open LEFT tib fib fx RIGHT tibial plateau fx PMHx: Depression, HTN Procedures: 08/24: I&D w/ Closed reduction, LEFT distal tibia/fibula pilon fx w/ ex-fix. Closed reduction RIGHT tibial plateau fx w/ ex-fix . 08/28: ORIF RIGHT proximal tibia w/ removal of ex-fix 08/31 or 09/01: Return to OR Consults: Orthopedics. Case management. Left lower extremity still remains too swollen for OR. Ortho will evaluate pt each day. Tentative plan is for return to OR for LEFT leg tomorrow or Thursday. Diet: Regular diet. Tolerating po diet. Encourage good po intake with each meal. Pulmonary: Encourage good pulmonary toileting. IS at bedside and pt encouraged to use. Rationale for use explained to patient, and verbalized understanding. PAIN Management: [place] 10 mg q4h. Morphine 3 mg q 1h. Robaxin 500 mg q 8h. Neurontin 300 mg TID. Fentanyl patch 50 MCG. Sleep: Trazodone 50 mg HS Activity: BR. PT and OT ordered. (NWB BLE) GI prophylaxis: Pepcid 20 mg BID po Bowel regimen: Colace. MOM. . Lactulose. LBM: 0. Patient has been refusing all bowel medications. Patient states he had a bowel movement "a couple of days ago," however there is no charted bowel movement. Intensified with bisacodyl PO/MO 1 dose today. DVT prophylaxis: Mechanical VTE with SCDs contraindicated due to bilateral ex- fix in place. Chemical management with heparin drip (PE) DC Planning: Case management consulted for assistance with final discharge disposition. Patient will most likely need a stay at rehabilitation. Emotional support provided to patient and family at bedside and plan of care discussed. Discussed with RN at bedside. Discussed pt condition and plan of care with collaborating trauma surgeon. Patient is hemodynamically stable and being managed on the med/surg floor. The trauma team will round each day, and evaluate plan of care on a daily basis. Trauma to the lower extremities Open LEFT tib fib fx RIGHT tibial plateau fx Orthopedics consulted and assisting in management and care 08/24: I&D w/ Closed reduction, LEFT distal tibia/fibula pilon fx w/ ex-fix. Closed reduction RIGHT tibial plateau fx w/ ex-fix 08/28: ORIF RIGHT proximal tibia w/ removal of ex-fix 08/31 or 09/01: Return to OR Supportive care Pain management PT and OT ordered NWB BLE Pin care per orthopedic Antibiotics per orthopedics DVT prophylaxis Heparin drip Hypoxia Right lower extremity posterior tibial vein DVT Pulmonary embolism right middle lobe/right lower lobe O2 as needed Supportive care Aggressive pulmonary toileting Low grade fever CTA shows pulmonary emboli within the right middle and lower lobe pulmonary artery branches US bilateral lower extremities - right lower extremity posterior tibial vein DVT Heparin drip per protocol Problem Qualifiers (1) Fall from ladder: Qualified Codes: W11.XXXA - Fall on and from ladder, initial encounter (2) Fracture of right tibial plateau: (3) Open fracture of tibia and fibula: Vicki Cary Aug 30, 2017 09:07
[2017-08-30] MEDS: LACTATED RINGER'S 1000 ML INJ 1,000 ML IV SCH ×2 (10:28→22:58)
[2017-08-30] MEDS: HEPARIN-D5W 25,000 U/250 ML 250 ML IV SCH (15:24)
[2017-08-30] MEDS: BACITRACIN TOP OINT 15 GM TUBE TOP SCH ×2 (17:45→20:54)
[2017-08-30] MEDS: traZODone HCL 50 MG TAB PO SCH (20:43)
[2017-08-31] VITALS (7 sets, daily range): BP systolic 132–163; BP diastolic 62–78; PULSE 79–98; RESP 17–20; TEMP 97.7–100.4; O2SAT 92–94
[2017-08-31] MEDS: ACETAMINOPHEN/HYDROcodone 325 MG/10 MG TAB PO PRN ×5 (05:05→23:56)
[2017-08-31] MEDS: METHOCARBAMOL 500 MG TAB PO SCH ×3 (05:05→21:54)
[2017-08-31] MEDS: CHOLECALCIFEROL (VIT D3) 1000 UNIT TAB PO SCH (08:20)
[2017-08-31] MEDS: DOCUSATE SODIUM 100 MG CAP PO SCH ×2 (08:20→20:51)
[2017-08-31] MEDS: GABAPENTIN 300 MG CAP PO SCH ×3 (08:20→16:28)
[2017-08-31] MEDS: FAMOTIDINE 20 MG TAB PO SCH ×2 (08:20→20:51)
[2017-08-31] MEDS: SERTRALINE HCL 100 MG TAB PO SCH (08:20)
[2017-08-31] MEDS: DILTIAZEM-CD 180 MG CAP ER PO SCH (08:20)
[2017-08-31] MEDS: LISINOPRIL 20 MG TAB PO SCH (08:21)
[2017-08-31] MEDS: LACTULOSE SYRUP 20 GM/30 ML CUP PO SCH (08:21)
[2017-08-31] MEDS ORDERED: BISACODYL 10 MG SUPP RECTAL ONE (08:30)
[2017-08-31] MEDS ORDERED: BISACODYL EC 5 MG TABEC PO ONE (08:30)
[2017-08-31] MEDS: MORPHINE SULFATE 4 MG/ML INJ IV PRN ×2 (08:32→12:43)
[2017-08-31] MEDS: HEPARIN-D5W 25,000 U/250 ML 250 ML IV SCH (08:36)
--- NOTE | 2017-08-31 08:43 | PD.ORT.PN ---
Subjective Subjective Remarks Resting comfortably with no new complaints Objective Vitals Vital Signs Date Time Temp Pulse Resp B/P (MAP) Pulse Ox O2 Delivery O2 Flow Rate FiO2 08/31/17 08:39 93 Nasal Cannula 4.00 08/31/17 05:39 19 08/31/17 00:10 Room Air 08/30/17 23:10 99.5 89 18 146/70 (95) 93 08/30/17 21:15 94 Nasal Cannula 4.00 08/30/17 18:55 98.7 85 19 150/68 (95) 93 08/30/17 16:13 20 08/30/17 15:39 99.7 89 19 151/70 (97) 95 08/30/17 14:41 90 Nasal Cannula 4.00 08/30/17 11:29 98.4 89 19 143/69 (93) 94 I/O 08/30/17 08/30/17 08/30/17 08/31/17 08/31/17 08/31/17 07:00 15:00 23:00 07:00 15:00 23:00 Intake Total 720 ml 850 ml 960 ml Output Total 1000 ml 280 ml 750 ml Balance -280 ml 570 ml 210 ml Intake Oral 720 ml 850 ml 960 ml Output Urine Total 1000 ml 280 ml 750 ml # Bowel Movements 0 0 0 Result Diagram: 08/30/17 0553 08/27/17 0400 Imaging Last 24 hours Impressions Tibia/Fibula X-Ray 08/24/17858 Signed Impressions: Service Date/Time: Thursday, August 24, 2017 09:42 - CONCLUSION: 1. Comminuted fracture of the proximal right tibia, as above. Jay Jay Diamond MD Tibia/Fibula X-Ray 08/24/1759 Signed Impressions: Service Date/Time: Thursday, August 24, 2017 09:17 - CONCLUSION: 1. Severely comminuted fracture involving the distal tibia the distal tibia with essentially shattered. The ankle mortise itself is intact. 2. Angulated fracture involving the distal fibula. 3. There are several bone fragments adjacent to the fibular head is below the knee consistent with mildly comminuted fracture of the proximal fibular head as well. Jaime Toledo MD Knee X-Ray 08/24/1759 Signed Impressions: Service Date/Time: Thursday, August 24, 2017 09:17 - CONCLUSION: 1. Comminuted, mildly displaced fracture of the fibular head. Jaime Toledo MD Knee X-Ray 08/24/1759 Signed Impressions: Service Date/Time: Thursday, August 24, 2017 09:42 - CONCLUSION: 1. Comminuted, mildly displaced fracture of the proximal right tibia. 2. The tibial plateaus are intact. There is however it advanced tricompartmental osteoarthritis in the right knee. Jaime Toledo MD Foot X-Ray 08/24/1759 Signed Impressions: Service Date/Time: Thursday, August 24, 2017 09:28 - CONCLUSION: 1. No acute fracture or dislocation in the foot. Jay Jay Diamond MD Objective Remarks LLE: +exfix. pin sites clean. traumatic wound closed. 2+swelling, but improving NVI RLE: Clean dry dressings intact. Mild swelling over lower leg. Intact sensation distally with active dorsiflexion plantar flexion of foot Assessment & Plan Assessment and Plan 1) Left Tibial Pilon Fx s/p Exfix - POD 7 Dr. Tenorio 2) Right Tibial Plateau Fx ORIF POD 3 Nonweightbearing right lower extremity PT for passive range of motion of knee and passive and active range of motion of ankle Daily dressing changes to right lower extremity Continue pin care twice a day and daily dressing changes to left lower extremity Continue elevation and ice to decrease swelling Anticipate swelling to be improved for surgery on Thursday for tibial pilon Hold Lovenox incentive spirometry Nothing by mouth after midnight Issac Che Jr. Aug 31, 2017 08:43
[2017-08-31] MEDS: LACTATED RINGER'S 1000 ML INJ 1,000 ML IV SCH ×2 (11:28→23:58)
--- NOTE | 2017-08-31 13:17 | HHI.PR ---
Subjective Subjective Notes PTD: 7 Patient lying in bed. No distress noted. Patient states the swelling is coming down in his left leg, and orthopedics is hopeful to do surgery tomorrow. Patient states he is passing gas. However he is still complaining of pain 03/17. "I need something to knock it down a bit. I am terrified to get out of bed " Objective Vitals/I&O Vital Signs Date Time Temp Pulse Resp B/P (MAP) Pulse Ox O2 Delivery O2 Flow Rate FiO2 08/31/17 11:59 99.3 91 18 141/75 (97) 94 08/31/17 08:39 Nasal Cannula 4.00 08/28/17 10:15 40 Labs Laboratory Tests Test 08/30/17 14:57 08/30/17 22:40 08/31/17 04:40 08/31/17 11:55 Activated Partial Thromboplast Time 42.0 49.2 42.0 37.1 Radiology Last 72 hours Impressions Tibia/Fibula X-Ray 08/28/17 0000 Signed Impressions: Service Date/Time: Monday, August 28, 2017 08:15 - CONCLUSION: 1. Fixation right tibia. Freddy De La Paz MD Narrative Exam GENERAL: This is a 52-year-old male lying in bed. No distress noted. SKIN: Warm and dry. HEAD: Atraumatic. Normocephalic. EYES: PERRLA ENT: No nasal bleeding or discharge. Mucous membranes pink and moist. NECK: Trachea midline. No JVD. CARDIOVASCULAR: Regular rate and rhythm. RESPIRATORY: On home CPAP machine. No accessory muscle use. Lungs are clear to auscultation. Breath sounds equal bilaterally. No distress or dyspnea. GASTROINTESTINAL: BS + x 4 quads. Abdomen soft, non-tender, nondistended. MUSCULOSKELETAL: Extremities without cyanosis. Right lower extremity wrapped with Dino bandage. Left lower extremity with ex-fix in place - slight ecchymosis noted to top of foot - edema. Ice packs in place. Pin sites intact. + peripheral pulses x 4 extremities. Warm with good capillary refill and sensation. MAEW. NEUROLOGICAL: Awake and alert. Normal speech and pattern. A/P Problem List: (1) Fall from ladder ICD Codes: W11.XXXA - Fall on and from ladder, initial encounter Status: Acute (2) Fracture of right tibial plateau ICD Codes: S82.141A - Displaced bicondylar fracture of right tibia, initial encounter for closed fracture Status: Acute (3) Open fracture of tibia and fibula ICD Codes: S82.209B - Unspecified fracture of shaft of unspecified tibia, initial encounter for open fracture type I or II; S82.409B - Unspecified fracture of shaft of unspecified fibula, initial encounter for open fracture type I or II Status: Acute Assessment and Plan [place]: This is a 52-year-old male who sustained a fall. He fell off a ladder approximately 8 feet landing on both of his feet. No LOC. INJURIES: Open LEFT tib fib fx RIGHT tibial plateau fx PMHx: Depression, HTN Procedures: 08/24: I&D w/ Closed reduction, LEFT distal tibia/fibula pilon fx w/ ex-fix. Closed reduction RIGHT tibial plateau fx w/ ex-fix . 08/28: ORIF RIGHT proximal tibia w/ removal of ex-fix 09/01: Return to OR Consults: Orthopedics. Case management. Left lower extremity still remains too swollen for OR. Ortho will evaluate pt each day. Tentative plan is for return to OR for LEFT leg tomorrow. Diet: Regular diet. Tolerating po diet. Encourage good po intake with each meal. Pulmonary: Encourage good pulmonary toileting. IS at bedside and pt encouraged to use. Rationale for use explained to patient, and verbalized understanding. PAIN Management: [place] 10 mg q4h. DC Morphine. Change to Dilaudid 1 mg q 4h. Robaxin 500 mg q 8h. Neurontin 300 mg TID. Fentanyl patch 50 MCG. Sleep: Trazodone 50 mg HS Activity: BR. PT and OT ordered. (NWB BLE) GI prophylaxis: Pepcid 20 mg BID po Bowel regimen: Colace. MOM. . Lactulose. LBM: 0. Patient is still refusing MOM and lactulose. Discussed with patient the importance of a good bowel regimen while taking narcotics for pain in addition to being non-ambulatory. Patient verbalized understanding and stated, "I have been taking them, they gave me a whole bunch of pills earlier." Intensified with bisacodyl PO/IN 1 dose today. DVT prophylaxis: Mechanical VTE with SCDs contraindicated due to bilateral ex- fix in place. Chemical management with heparin drip (PE) DC Planning: Case management consulted for assistance with final discharge disposition. Patient will most likely need a stay at rehabilitation once surgeries are completed. Emotional support provided to patient and family at bedside and plan of care discussed. Discussed with RN at bedside. Discussed pt condition and plan of care with collaborating trauma surgeon. Patient is hemodynamically stable and being managed on the med/surg floor. The trauma team will round each day, and evaluate plan of care on a daily basis. Trauma to the lower extremities Open LEFT tib fib fx RIGHT tibial plateau fx Orthopedics consulted and assisting in management and care 08/24: I&D w/ Closed reduction, LEFT distal tibia/fibula pilon fx w/ ex-fix. Closed reduction RIGHT tibial plateau fx w/ ex-fix 08/28: ORIF RIGHT proximal tibia w/ removal of ex-fix 09/01: Return to OR Supportive care Pain management Ice and elevate PT and OT ordered NWB BLE Dressings per orthopedics Pin care per orthopedic Antibiotics per orthopedics DVT prophylaxis Heparin drip Hypoxia Right lower extremity posterior tibial vein DVT Pulmonary embolism right middle lobe/right lower lobe O2 as needed Supportive care Aggressive pulmonary toileting Low grade fever CTA shows pulmonary emboli within the right middle and lower lobe pulmonary artery branches US bilateral lower extremities - right lower extremity posterior tibial vein DVT Heparin drip per protocol Problem Qualifiers (1) Fall from ladder: Qualified Codes: W11.XXXA - Fall on and from ladder, initial encounter (2) Fracture of right tibial plateau: (3) Open fracture of tibia and fibula: Vicki Cary Aug 31, 2017 13:17
[2017-08-31] MEDS: traZODone HCL 50 MG TAB PO SCH (20:52)
[2017-08-31] MEDS ORDERED: LACTATED RINGER'S 1000 ML IV PRN (22:45)
[2017-08-31] MEDS ORDERED: CHLORHEXIDINE GLUCONATE 2 % 1 PACK (2 CLOTHS) TOPICAL PRN (22:45)
[2017-08-31] MEDS ORDERED: SODIUM CHLORID 0.9% 500 ML IV PRN (22:45)
[2017-08-31] MEDS ORDERED: POVIDONE IODINE 5% (ANTISEPSIS KIT) 4 APPLICATIONS EACH NARE PRN (22:45)
[2017-08-31] MEDS: BACITRACIN TOP OINT 15 GM TUBE TOP SCH (23:57)
[2017-09-01] MEDS: METHOCARBAMOL 500 MG TAB PO SCH ×3 (06:33→21:30)
[2017-09-01] MEDS: ACETAMINOPHEN/HYDROcodone 325 MG/10 MG TAB PO PRN ×5 (06:33→21:31)
[2017-09-01 07:57] VITALS: BP 140/78; PULSE 83; RESP 17; TEMP 98.2; O2SAT 97
[2017-09-01] MEDS: MAGNESIUM HYDROXIDE SUSP 30 ML CUP PO SCH ×2 (09:00→21:00)
[2017-09-01] MEDS: LACTULOSE SYRUP 20 GM/30 ML CUP PO SCH (09:00)
[2017-09-01] MEDS: BACITRACIN TOP OINT 15 GM TUBE TOP SCH ×2 (09:00→21:00)
[2017-09-01 09:40] VITALS: O2SAT 93
[2017-09-01] MEDS: DOCUSATE SODIUM 100 MG CAP PO SCH ×2 (10:10→21:30)
[2017-09-01] MEDS: FAMOTIDINE 20 MG TAB PO SCH ×2 (10:10→21:30)
[2017-09-01] MEDS: CHOLECALCIFEROL (VIT D3) 1000 UNIT TAB PO SCH (10:11)
[2017-09-01] MEDS: DILTIAZEM-CD 180 MG CAP ER PO SCH (10:11)
[2017-09-01] MEDS: SERTRALINE HCL 100 MG TAB PO SCH (10:11)
[2017-09-01] MEDS: GABAPENTIN 300 MG CAP PO SCH ×3 (10:11→18:10)
[2017-09-01] MEDS: LISINOPRIL 20 MG TAB PO SCH (10:12)
[2017-09-01] MEDS: SODIUM CHLORIDE 0.9% FLUSH 10 ML FLUSH IV FLUSH PRN (10:12)
[2017-09-01] MEDS: KETOROLAC TROMETHAMINE 30 MG/ML (IVP) VIAL IV PUSH SCH ×3 (10:12→18:12)
[2017-09-01] MEDS: HEPARIN-D5W 25,000 U/250 ML 250 ML IV SCH (10:37)
[2017-09-01 11:56] VITALS: BP 148/66; PULSE 80; RESP 17; TEMP 98; O2SAT 95
--- NOTE | 2017-09-01 12:53 | PD.ORT.PN ---
Subjective Subjective Remarks POD 4 s/p ORIF right tibial plateau s/p exfix left pilon doing well. pain controlled Objective Vitals Vital Signs Date Time Temp Pulse Resp B/P (MAP) Pulse Ox O2 Delivery O2 Flow Rate FiO2 09/01/17 11:56 98.0 80 17 148/66 (93) 95 09/01/17 07:57 98.2 83 17 140/78 (98) 97 09/01/17 07:50 Room Air 08/31/17 23:20 98.1 89 17 152/73 (99) 94 08/31/17 20:00 97.7 93 18 153/77 (102) 94 08/31/17 17:06 93 Nasal Cannula 4.00 08/31/17 16:00 100.4 98 20 163/78 (106) 93 I/O 08/31/17 08/31/17 08/31/17 09/01/17 09/01/17 09/01/17 07:00 15:00 23:00 07:00 15:00 23:00 Intake Total 960 ml 480 ml 250 ml Output Total 750 ml 1050 ml 450 ml 500 ml Balance 210 ml -1050 ml 30 ml -250 ml Intake Oral 960 ml 480 ml IV Total 250 ml Output Urine Total 750 ml 1050 ml 450 ml 500 ml # Voids 3 1 # Bowel Movements 0 1 Result Diagram: 08/30/17 0553 Imaging Last 24 hours Impressions Tibia/Fibula X-Ray 08/24/1759 Signed Impressions: Service Date/Time: Thursday, August 24, 2017 09:42 - CONCLUSION: 1. Comminuted fracture of the proximal right tibia, as above. Jay Jay Diamond MD Tibia/Fibula X-Ray 08/24/1759 Signed Impressions: Service Date/Time: Thursday, August 24, 2017 09:17 - CONCLUSION: 1. Severely comminuted fracture involving the distal tibia the distal tibia with essentially shattered. The ankle mortise itself is intact. 2. Angulated fracture involving the distal fibula. 3. There are several bone fragments adjacent to the fibular head is below the knee consistent with mildly comminuted fracture of the proximal fibular head as well. Jaime Toledo MD Knee X-Ray 08/24/1759 Signed Impressions: Service Date/Time: Thursday, August 24, 2017 09:17 - CONCLUSION: 1. Comminuted, mildly displaced fracture of the fibular head. Jaime Toledo MD Knee X-Ray 08/24/1759 Signed Impressions: Service Date/Time: Thursday, August 24, 2017 09:42 - CONCLUSION: 1. Comminuted, mildly displaced fracture of the proximal right tibia. 2. The tibial plateaus are intact. There is however it advanced tricompartmental osteoarthritis in the right knee. Jaime Toledo MD Foot X-Ray 08/24/1759 Signed Impressions: Service Date/Time: Thursday, August 24, 2017 09:28 - CONCLUSION: 1. No acute fracture or dislocation in the foot. Jay Jay Diamond MD Objective Remarks LLE: +exfix. pin sites clean. traumatic wound closed. 2+swelling, but improving NVI RLE: Clean dry dressings intact. Mild swelling over lower leg. Intact sensation distally with active dorsiflexion plantar flexion of foot Assessment & Plan Assessment and Plan 1) Left Tibial Pilon Fx s/p Exfix 2) Right Tibial Plateau Fx ORIF POD 4 Nonweightbearing right lower extremity PT for passive range of motion of knee and passive and active range of motion of ankle Daily dressing changes to right lower extremity Continue pin care twice a day and daily dressing changes to left lower extremity Continue elevation and ice to decrease swelling Anticipate swelling to be improved for surgery on Thursday for tibial pilon resume heparin resume diet toradol will likely not be ready for surgery for 3-5 days elevate/ice Nikhil Manuel/D[facility] Busser BRANDI Sep 01, 2017 12:53
--- NOTE | 2017-09-01 13:20 | HHI.PR ---
Subjective Subjective Notes PTD: 8 Patient lying in bed. No distress noted. Plan for surgery has been scrubbed today due to increased swelling. "I ran out of patience last week." "I am the type of person who works 12-15 hours a day because I want to." "I need my sheets changed." Objective Vitals/I&O Vital Signs Date Time Temp Pulse Resp B/P (MAP) Pulse Ox O2 Delivery O2 Flow Rate FiO2 09/01/17 11:56 98.0 80 17 148/66 (93) 95 09/01/17 07:50 Room Air 08/31/17 17:06 4.00 08/28/17 10:15 40 Labs Laboratory Tests Test 08/31/17 20:48 09/01/17 03:31 09/01/17 08:09 Activated Partial Thromboplast Time 45.6 29.9 28.7 Narrative Exam GENERAL: This is a 52-year-old male lying in bed. No distress noted. SKIN: Warm and dry. HEAD: Atraumatic. Normocephalic. EYES: PERRLA ENT: No nasal bleeding or discharge. Mucous membranes pink and moist. NECK: Trachea midline. No JVD. CARDIOVASCULAR: Regular rate and rhythm. RESPIRATORY: On home CPAP machine. No accessory muscle use. Lungs are clear to auscultation. Breath sounds equal bilaterally. No distress or dyspnea. GASTROINTESTINAL: BS + x 4 quads. Abdomen soft, non-tender, nondistended. MUSCULOSKELETAL: Extremities without cyanosis. Right lower extremity wrapped with Dino bandage. Left lower extremity with ex-fix in place - slight ecchymosis noted to top of foot - edema. Ice packs in place. Pin sites intact. + peripheral pulses x 4 extremities. Warm with good capillary refill and sensation. MAEW. NEUROLOGICAL: Awake and alert. Normal speech and pattern. A/P Problem List: (1) Fall from ladder ICD Codes: W11.XXXA - Fall on and from ladder, initial encounter Status: Acute (2) Fracture of right tibial plateau ICD Codes: S82.141A - Displaced bicondylar fracture of right tibia, initial encounter for closed fracture Status: Acute (3) Open fracture of tibia and fibula ICD Codes: S82.209B - Unspecified fracture of shaft of unspecified tibia, initial encounter for open fracture type I or II; S82.409B - Unspecified fracture of shaft of unspecified fibula, initial encounter for open fracture type I or II Status: Acute Assessment and Plan [place]: This is a 52-year-old male who sustained a fall. He fell off a ladder approximately 8 feet landing on both of his feet. No LOC. INJURIES: Open LEFT tib fib fx RIGHT tibial plateau fx PMHx: Depression, HTN Procedures: 08/24: I&D w/ Closed reduction, LEFT distal tibia/fibula pilon fx w/ ex-fix. Closed reduction RIGHT tibial plateau fx w/ ex-fix . 08/28: ORIF RIGHT proximal tibia w/ removal of ex-fix Return to OR when swelling decreased Consults: Orthopedics. Case management. Left lower extremity still remains too swollen for OR. Ortho will evaluate pt each day. (729 - Since surgery has been placed on hold, call placed to RN to assure that heparin drip will be resumed. RN is in the process of starting heparin drip.) Diet: Regular diet. Tolerating po diet. Encourage good po intake with each meal. Pulmonary: Encourage good pulmonary toileting. IS at bedside and pt encouraged to use. Rationale for use explained to patient, and verbalized understanding. PAIN Management: [place] 10 mg q4h. Dilaudid 1 mg q 4h. Robaxin 500 mg q 8h. Neurontin 300 mg TID. Toradol 15 mg q 6h x 24 hrs. Fentanyl patch 50 MCG. Sleep: Trazodone 50 mg HS Activity: BR. PT and OT ordered. (NWB BLE) GI prophylaxis: Pepcid 20 mg BID po Bowel regimen: Colace. MOM. . Lactulose. LBM: 09/01. DVT prophylaxis: Mechanical VTE with SCDs contraindicated due to bilateral ex- fix in place. Chemical management with Heparin drip (PE) DC Planning: Case management consulted for assistance with final discharge disposition. Patient will most likely need a stay at rehabilitation once surgeries are completed. Emotional support provided to patient and family at bedside and plan of care discussed. Discussed with RN at bedside. Discussed pt condition and plan of care with collaborating trauma surgeon. Patient is hemodynamically stable and being managed on the med/surg floor. The trauma team will round each day, and evaluate plan of care on a daily basis. Trauma to the lower extremities Open LEFT tib fib fx RIGHT tibial plateau fx Orthopedics consulted and assisting in management and care 08/24: I&D w/ Closed reduction, LEFT distal tibia/fibula pilon fx w/ ex-fix. Closed reduction RIGHT tibial plateau fx w/ ex-fix 08/28: ORIF RIGHT proximal tibia w/ removal of ex-fix Return to OR once swelling decreased Supportive care Pain management Ice and elevate PT and OT ordered NWB BLE Dressings per orthopedics Pin care per orthopedic Antibiotics per orthopedics DVT prophylaxis Heparin drip Hypoxia Right lower extremity posterior tibial vein DVT Pulmonary embolism right middle lobe/right lower lobe O2 as needed Supportive care Aggressive pulmonary toileting Low grade fever CTA shows pulmonary emboli within the right middle and lower lobe pulmonary artery branches US bilateral lower extremities - right lower extremity posterior tibial vein DVT Heparin drip per protocol Remarks Patient seen and examined the nurse practitioner, stable from general trauma standpoint, awaiting orthopedic surgery after swelling is down his right lower extremity Problem Qualifiers (1) Fall from ladder: Qualified Codes: W11.XXXA - Fall on and from ladder, initial encounter (2) Fracture of right tibial plateau: (3) Open fracture of tibia and fibula: Vicki Cary Sep 01, 2017 13:20 Roberta Henao MD Sep 05, 2017 15:03
[2017-09-01] MEDS: REMOVE OLD DURAGESIC (FENTANYL) PATCH T-DERMAL SCH (14:39)
[2017-09-01] MEDS: fentaNYL 50 MCG/HR PATCH T-DERMAL SCH (14:39)
[2017-09-01 16:00] VITALS: BP 152/72; PULSE 85; RESP 17; TEMP 98.2; O2SAT 89
[2017-09-01 20:05] VITALS: BP 149/70; PULSE 82; RESP 18; TEMP 98.5; O2SAT 96
[2017-09-01] MEDS: traZODone HCL 50 MG TAB PO SCH (21:30)
[2017-09-01 21:50] VITALS: O2SAT 92
[2017-09-02 00:20] VITALS: BP 141/76; PULSE 83; RESP 19; TEMP 97.7; O2SAT 95
[2017-09-02] MEDS: KETOROLAC TROMETHAMINE 30 MG/ML (IVP) VIAL IV PUSH SCH ×3 (00:24→13:20)
[2017-09-02] MEDS: HYDROmorphone HCL PF 2 MG/ML VIAL IV PUSH PRN ×2 (00:25→13:19)
[2017-09-02] MEDS: HEPARIN-D5W 25,000 U/250 ML 250 ML IV SCH ×2 (00:46→15:04)
[2017-09-02 03:37] LABS: HEMATOCRIT 31.2 % (39.0-51.0); HEMOGLOBIN 10.2 GM/DL (13.0-17.0); MEAN CELL VOLUME 94.4 FL (80.0-100.0); MEAN CORPUSCULAR HGB CONC 32.8 % (32.0-36.0); MEAN PLATELET VOLUME 7.8 FL (7.0-11.0); PLATELET COUNT 433 TH/MM3 (150-450); RED CELL DISTRIBUTION WIDTH 12.9 % (11.6-17.2); WHITE BLOOD COUNT 15.3 TH/MM3 (4.0-11.0)
[2017-09-02] MEDS: METHOCARBAMOL 500 MG TAB PO SCH ×3 (06:13→20:34)
[2017-09-02] MEDS: ACETAMINOPHEN/HYDROcodone 325 MG/10 MG TAB PO PRN ×3 (06:13→18:19)
--- NOTE | 2017-09-02 06:49 | PD.ORT.PN ---
Subjective Subjective Remarks Resting comfortably with no new complaints Objective Vitals Vital Signs Date Time Temp Pulse Resp B/P (MAP) Pulse Ox O2 Delivery O2 Flow Rate FiO2 09/02/17 01:09 HOME CPAP 4.00 09/02/17 00:20 97.7 83 19 141/76 (97) 95 09/01/17 21:50 92 09/01/17 20:05 98.5 82 18 149/70 (96) 96 09/01/17 19:22 Room Air 09/01/17 19:22 09/01/17 16:00 98.2 85 17 152/72 (98) 89 09/01/17 11:56 98.0 80 17 148/66 (93) 95 09/01/17 09:40 93 21 09/01/17 07:57 98.2 83 17 140/78 (98) 97 09/01/17 07:50 Room Air I/O 09/01/17 09/01/17 09/01/17 09/02/17 09/02/17 09/02/17 07:00 15:00 23:00 07:00 15:00 23:00 Intake Total 250 ml 480 ml 180 ml 480 ml Output Total 500 ml Balance -250 ml 480 ml 180 ml 480 ml Intake Oral 480 ml 480 ml IV Total 250 ml 180 ml Output Urine Total 500 ml # Voids 6 2 # Bowel Movements 0 0 Result Diagram: 09/02/17 0254 Imaging Last 24 hours Impressions Tibia/Fibula X-Ray 08/24/17 0859 Signed Impressions: Service Date/Time: Thursday, August 24, 2017 09:42 - CONCLUSION: 1. Comminuted fracture of the proximal right tibia, as above. Jay Jay Diamond MD Tibia/Fibula X-Ray 08/24/17 0859 Signed Impressions: Service Date/Time: Thursday, August 24, 2017 09:17 - CONCLUSION: 1. Severely comminuted fracture involving the distal tibia the distal tibia with essentially shattered. The ankle mortise itself is intact. 2. Angulated fracture involving the distal fibula. 3. There are several bone fragments adjacent to the fibular head is below the knee consistent with mildly comminuted fracture of the proximal fibular head as well. Jaime Toledo MD Knee X-Ray 08/24/17 0859 Signed Impressions: Service Date/Time: Thursday, August 24, 2017 09:17 - CONCLUSION: 1. Comminuted, mildly displaced fracture of the fibular head. Jaime Toledo MD Knee X-Ray 08/24/17 0859 Signed Impressions: Service Date/Time: Thursday, August 24, 2017 09:42 - CONCLUSION: 1. Comminuted, mildly displaced fracture of the proximal right tibia. 2. The tibial plateaus are intact. There is however it advanced tricompartmental osteoarthritis in the right knee. Jaime Toledo MD Foot X-Ray 08/24/17 0859 Signed Impressions: Service Date/Time: Thursday, August 24, 2017 09:28 - CONCLUSION: 1. No acute fracture or dislocation in the foot. Jay Jay Diamond MD Objective Remarks LLE: +exfix. pin sites clean. traumatic wound closed. 2+swelling, but improving NVI RLE: Clean dry dressings intact. Mild swelling over lower leg. Intact sensation distally with active dorsiflexion plantar flexion of foot Assessment & Plan Assessment and Plan 1) Left Tibial Pilon Fx s/p Exfix 2) Right Tibial Plateau Fx ORIF POD 5 Nonweightbearing right lower extremity PT for passive range of motion of knee and passive and active range of motion of ankle Daily dressing changes to right lower extremity Continue pin care twice a day and daily dressing changes to left lower extremity Continue elevation and ice to decrease swelling Anticipate swelling to be improved for surgery on Thursday for tibial pilon resume heparin resume diet toradol will likely not be ready for surgery for 3-5 days elevate/ice Issac Che Jr. Sep 02, 2017 06:49
[2017-09-02 07:50] VITALS: BP 163/84; PULSE 87; RESP 17; TEMP 98.4; O2SAT 95
[2017-09-02] MEDS: MAGNESIUM HYDROXIDE SUSP 30 ML CUP PO SCH ×2 (09:00→20:34)
[2017-09-02] MEDS: BACITRACIN TOP OINT 15 GM TUBE TOP SCH ×2 (09:00→20:35)
[2017-09-02] MEDS: LACTULOSE SYRUP 20 GM/30 ML CUP PO SCH (09:00)
[2017-09-02] MEDS: SERTRALINE HCL 100 MG TAB PO SCH (09:24)
[2017-09-02] MEDS: CHOLECALCIFEROL (VIT D3) 1000 UNIT TAB PO SCH (09:24)
[2017-09-02] MEDS: FAMOTIDINE 20 MG TAB PO SCH ×2 (09:24→20:34)
[2017-09-02] MEDS: GABAPENTIN 300 MG CAP PO SCH ×3 (09:24→18:18)
[2017-09-02] MEDS: DILTIAZEM-CD 180 MG CAP ER PO SCH (09:24)
[2017-09-02] MEDS: LISINOPRIL 20 MG TAB PO SCH (09:24)
[2017-09-02] MEDS: DOCUSATE SODIUM 100 MG CAP PO SCH ×2 (09:24→20:34)
[2017-09-02] MEDS: diphenhydrAMINE HCL 25 MG CAP PO PRN (10:30)
[2017-09-02 11:50] VITALS: BP 162/77; PULSE 94; RESP 18; TEMP 98.5; O2SAT 93
--- NOTE | 2017-09-02 14:02 | HHI.PR ---
Subjective Subjective Notes PTD: 9 Patient lying in bed. No distress noted. Patient is disappointed that surgery cannot be completed yet but understands. Patient states he's been very painful today. Objective Vitals/I&O Vital Signs Date Time Temp Pulse Resp B/P (MAP) Pulse Ox O2 Delivery O2 Flow Rate FiO2 09/02/17 11:50 98.5 94 18 162/77 (105) 93 09/02/17 01:09 HOME CPAP 4.00 09/01/17 09:40 21 Labs Laboratory Tests Test 09/01/17 15:50 09/01/17 21:46 09/02/17 02:54 Activated Partial Thromboplast Time 36.6 42.9 42.7 White Blood Count 15.3 Red Blood Count 3.30 Hemoglobin 10.2 Hematocrit 31.2 Mean Corpuscular Volume 94.4 Mean Corpuscular Hemoglobin 31.0 Mean Corpuscular Hemoglobin Concent 32.8 Red Cell Distribution Width 12.9 Platelet Count 433 Mean Platelet Volume 7.8 Narrative Exam GENERAL: This is a 52-year-old male lying in bed. No distress noted. SKIN: Warm and dry. HEAD: Atraumatic. Normocephalic. EYES: PERRLA ENT: No nasal bleeding or discharge. Mucous membranes pink and moist. NECK: Trachea midline. No JVD. CARDIOVASCULAR: Regular rate and rhythm. RESPIRATORY: On home CPAP machine. No accessory muscle use. Lungs are clear to auscultation. Breath sounds equal bilaterally. No distress or dyspnea. GASTROINTESTINAL: BS + x 4 quads. Abdomen soft, non-tender, nondistended. MUSCULOSKELETAL: Extremities without cyanosis. Right lower extremity wrapped with Dino bandage. Left lower extremity with ex-fix in place - slight ecchymosis noted to top of foot - edema. Ice packs in place. Pin sites intact. + peripheral pulses x 4 extremities. Warm with good capillary refill and sensation. MAEW. NEUROLOGICAL: Awake and alert. Normal speech and pattern. A/P Problem List: (1) Fall from ladder ICD Codes: W11.XXXA - Fall on and from ladder, initial encounter Status: Acute (2) Fracture of right tibial plateau ICD Codes: S82.141A - Displaced bicondylar fracture of right tibia, initial encounter for closed fracture Status: Acute (3) Open fracture of tibia and fibula ICD Codes: S82.209B - Unspecified fracture of shaft of unspecified tibia, initial encounter for open fracture type I or II; S82.409B - Unspecified fracture of shaft of unspecified fibula, initial encounter for open fracture type I or II Status: Acute Assessment and Plan [place]: This is a 52-year-old male who sustained a fall. He fell off a ladder approximately 8 feet landing on both of his feet. No LOC. INJURIES: Open LEFT tib fib fx RIGHT tibial plateau fx PMHx: Depression, HTN Procedures: 08/24: I&D w/ Closed reduction, LEFT distal tibia/fibula pilon fx w/ ex-fix. Closed reduction RIGHT tibial plateau fx w/ ex-fix . 08/28: ORIF RIGHT proximal tibia w/ removal of ex-fix Return to OR when swelling decreased Consults: Orthopedics. Case management. Left lower extremity still remains too swollen for OR. Ortho is anticipating surgery to be done early next week, possibly Thursday. Diet: Regular diet. Tolerating po diet. Encourage good po intake with each meal. Pulmonary: Encourage good pulmonary toileting. IS at bedside and pt encouraged to use. Rationale for use explained to patient, and verbalized understanding. PAIN Management: Leon 10 mg q4h. Dilaudid 1 mg q 4h. Robaxin 500 mg q 8h. Neurontin 300 mg TID. Fentanyl patch 50 MCG. Sleep: Trazodone 50 mg HS Activity: BR. PT and OT ordered. (NWB BLE) GI prophylaxis: Pepcid 20 mg BID po Bowel regimen: Colace. MOM. . Lactulose. LBM: 09/01. DVT prophylaxis: Mechanical VTE with SCDs contraindicated due to bilateral ex- fix in place. Chemical management with Heparin drip (PE) DC Planning: Case management consulted for assistance with final discharge disposition. Patient will most likely need a stay at rehabilitation once surgeries are completed. Emotional support provided to patient and family at bedside and plan of care discussed. Discussed with RN at bedside. Discussed pt condition and plan of care with collaborating trauma surgeon. Patient is hemodynamically stable and being managed on the med/surg floor. The trauma team will round each day, and evaluate plan of care on a daily basis. Trauma to the lower extremities Open LEFT tib fib fx RIGHT tibial plateau fx Orthopedics consulted and assisting in management and care 08/24: I&D w/ Closed reduction, LEFT distal tibia/fibula pilon fx w/ ex-fix. Closed reduction RIGHT tibial plateau fx w/ ex-fix 08/28: ORIF RIGHT proximal tibia w/ removal of ex-fix Return to OR once swelling decreased - possibly not till next week Supportive care Pain management Ice and elevate PT and OT ordered NWB BLE Dressings per orthopedics Pin care per orthopedic Antibiotics per orthopedics DVT prophylaxis Heparin drip Hypoxia Right lower extremity posterior tibial vein DVT Pulmonary embolism right middle lobe/right lower lobe O2 as needed Supportive care Aggressive pulmonary toileting Low grade fever CTA shows pulmonary emboli within the right middle and lower lobe pulmonary artery branches US bilateral lower extremities - right lower extremity posterior tibial vein DVT Heparin drip per protocol Problem Qualifiers (1) Fall from ladder: Qualified Codes: W11.XXXA - Fall on and from ladder, initial encounter (2) Fracture of right tibial plateau: (3) Open fracture of tibia and fibula: Vicki Cary Sep 02, 2017 14:02
[2017-09-02 15:58] VITALS: BP 143/72; PULSE 84; RESP 18; TEMP 99; O2SAT 95
[2017-09-02 20:00] VITALS: BP 152/72; PULSE 88; RESP 17; TEMP 98.6; O2SAT 96
[2017-09-02] MEDS: traZODone HCL 50 MG TAB PO SCH (20:34)
[2017-09-02 23:52] VITALS: BP 145/75; PULSE 87; RESP 17; TEMP 99.1; O2SAT 97
[2017-09-03] MEDS: ACETAMINOPHEN/HYDROcodone 325 MG/10 MG TAB PO PRN ×6 (02:43→22:24)
[2017-09-03] MEDS: HEPARIN-D5W 25,000 U/250 ML 250 ML IV SCH ×2 (03:24→16:27)
[2017-09-03 03:56] VITALS: BP 149/73; PULSE 92; RESP 18; TEMP 98.9; O2SAT 97
[2017-09-03] MEDS: METHOCARBAMOL 500 MG TAB PO SCH ×3 (05:32→22:23)
--- NOTE | 2017-09-03 06:33 | PD.ORT.PN ---
Subjective Subjective Remarks POD 6 s/p ORIF right tibial plateau s/p exfix left pilon doing well. pain controlled Objective Vitals Vital Signs Date Time Temp Pulse Resp B/P (MAP) Pulse Ox O2 Delivery O2 Flow Rate FiO2 09/03/17 03:56 98.9 92 18 149/73 (98) 97 09/02/17 23:52 99.1 87 17 145/75 (98) 97 09/02/17 20:00 98.6 88 17 152/72 (98) 96 09/02/17 15:58 99.0 84 18 143/72 (95) 95 09/02/17 11:50 98.5 94 18 162/77 (105) 93 09/02/17 07:50 98.4 87 17 163/84 (110) 95 I/O 09/02/17 09/02/17 09/02/17 09/03/17 09/03/17 09/03/17 07:00 15:00 23:00 07:00 15:00 23:00 Intake Total 480 ml 480 ml 720 ml Output Total 500 ml 1300 ml Balance 480 ml 480 ml -500 ml -580 ml Intake Oral 480 ml 480 ml 480 ml IV Total 240 ml Output Urine Total 500 ml 1300 ml # Voids 2 7 # Bowel Movements 0 0 0 Result Diagram: 09/02/17 0254 Imaging Last 24 hours Impressions Tibia/Fibula X-Ray 08/24/17 0859 Signed Impressions: Service Date/Time: Thursday, August 24, 2017 09:42 - CONCLUSION: 1. Comminuted fracture of the proximal right tibia, as above. Jay Jay Diamond MD Tibia/Fibula X-Ray 08/24/17 0859 Signed Impressions: Service Date/Time: Thursday, August 24, 2017 09:17 - CONCLUSION: 1. Severely comminuted fracture involving the distal tibia the distal tibia with essentially shattered. The ankle mortise itself is intact. 2. Angulated fracture involving the distal fibula. 3. There are several bone fragments adjacent to the fibular head is below the knee consistent with mildly comminuted fracture of the proximal fibular head as well. Jaime Toledo MD Knee X-Ray 08/24/17 0859 Signed Impressions: Service Date/Time: Thursday, August 24, 2017 09:17 - CONCLUSION: 1. Comminuted, mildly displaced fracture of the fibular head. Jaime Toledo MD Knee X-Ray 08/24/1759 Signed Impressions: Service Date/Time: Thursday, August 24, 2017 09:42 - CONCLUSION: 1. Comminuted, mildly displaced fracture of the proximal right tibia. 2. The tibial plateaus are intact. There is however it advanced tricompartmental osteoarthritis in the right knee. Jaime Toledo MD Foot X-Ray 08/24/1715 Signed Impressions: Service Date/Time: Thursday, August 24, 2017 09:28 - CONCLUSION: 1. No acute fracture or dislocation in the foot. Jay Jay Diamond MD Objective Remarks LLE: +exfix. pin sites clean. traumatic wound closed. 2+swelling, but improving NVI RLE: Clean dry dressings intact. Mild swelling over lower leg. Intact sensation distally with active dorsiflexion plantar flexion of foot Assessment & Plan Assessment and Plan 1) Left Tibial Pilon Fx s/p Exfix 2) Right Tibial Plateau Fx ORIF POD 6 Nonweightbearing right lower extremity PT for passive range of motion of knee and passive and active range of motion of ankle Daily dressing changes to right lower extremity Continue pin care twice a day and daily dressing changes to left lower extremity Continue elevation and ice to decrease swelling Anticipate swelling to be improved for surgery on Thursday for tibial pilon resume heparin resume diet toradol plan for eval for surgery thursday elevate/ice Nikhil Manuel/[employer] BRANDI Sep 03, 2017 06:32
[2017-09-03] MEDS: CHOLECALCIFEROL (VIT D3) 1000 UNIT TAB PO SCH (07:34)
[2017-09-03] MEDS: DILTIAZEM-CD 180 MG CAP ER PO SCH (07:34)
[2017-09-03] MEDS: GABAPENTIN 300 MG CAP PO SCH (07:34)
[2017-09-03] MEDS: LISINOPRIL 20 MG TAB PO SCH (07:34)
[2017-09-03] MEDS: SERTRALINE HCL 100 MG TAB PO SCH (07:34)
[2017-09-03] MEDS: DOCUSATE SODIUM 50 MG/SENNA 8.6 MG TAB PO SCH ×2 (07:34→22:23)
[2017-09-03] MEDS: BACITRACIN TOP OINT 15 GM TUBE TOP SCH ×2 (07:35→22:26)
[2017-09-03] MEDS: FAMOTIDINE 20 MG TAB PO SCH ×2 (07:35→22:23)
[2017-09-03] MEDS: POLYETHYLENE GLYCOL 17 GM PKG PO SCH (08:21)
[2017-09-03 08:22] VITALS: O2SAT 92
[2017-09-03 11:56] VITALS: BP 130/67; PULSE 82; RESP 18; TEMP 98.8; O2SAT 93
[2017-09-03] MEDS: GABAPENTIN 400 MG CAP PO SCH ×2 (12:29→17:32)
[2017-09-03] MEDS: HYDROmorphone HCL PF 2 MG/ML VIAL IV PUSH PRN (12:30)
[2017-09-03 15:33] VITALS: BP 128/61; PULSE 85; RESP 18; TEMP 97.9; O2SAT 95
--- NOTE | 2017-09-03 15:53 | HHI.PR ---
Subjective Subjective Notes Reports pain is not well controlled Appetite fair Objective Vitals/I&O Vital Signs Date Time Temp Pulse Resp B/P (MAP) Pulse Ox O2 Delivery O2 Flow Rate FiO2 09/03/17 15:33 97.9 85 18 128/61 (83) 95 09/03/17 08:22 21 09/03/17 07:44 Room Air 09/02/17 01:09 4.00 Labs Laboratory Tests Test 09/03/17 05:12 Activated Partial Thromboplast Time 43.9 Radiology Last Impressions Tibia/Fibula X-Ray 08/28/17 0000 Signed Impressions: Service Date/Time: Monday, August 28, 2017 08:15 - CONCLUSION: 1. Fixation right tibia. Freddy De La Paz MD Lower Extremity Ultrasound 08/27/17 0000 Signed Impressions: Service Date/Time: August 13:46 - CONCLUSION: Right calf DVT. Elvin Moncada MD Chest X-Ray 08/27/17 0000 Signed Impressions: Service Date/Time: August 06:11 - CONCLUSION: Focal opacity in right midlung has masslike features. Recommend CT thorax for further characterization. Mango Murrell MD CT Angiography 08/27/17 0000 Signed Impressions: Service Date/Time: August 10:20 - CONCLUSION: 1. Pulmonary emboli within the right middle and lower lobe pulmonary artery branches. 2. Posterior infiltrates within the lower lobes and upper lobes bilaterally. 3. Tiny bilateral pleural effusions. 4. Enlarged fatty liver. 5. 8 mm low- density lesion within the right lobe near the dome which is indeterminate. Keyshawn Child MD Lower Extremity CT 08/25/17 0000 Signed Impressions: Service Date/Time: Friday, August 25, 2017 08:26 - CONCLUSION: 1. There are nondisplaced fractures involving the proximal one third shaft of the tibia. There is also a nondisplaced avulsion fracture involving the anterior tibial tuberosity. 2. There is a small 6 mm loose body in the posterior medial joint compartment. 3. Nondisplaced fracture involving the superior medial fibula. 4. Well-defined bone cyst in the distal femur and proximal tibia. Marco Dahl MD Knee X-Ray 08/24/17 0859 Signed Impressions: Service Date/Time: Thursday, August 24, 2017 09:17 - CONCLUSION: 1. Comminuted, mildly displaced fracture of the fibular head. Jaime Toledo MD Foot X-Ray 08/24/17 0859 Signed Impressions: Service Date/Time: Thursday, August 24, 2017 09:28 - CONCLUSION: 1. No acute fracture or dislocation in the foot. Jay Jay Diamond MD Ankle X-Ray 08/24/17 0000 Signed Impressions: Service Date/Time: Thursday, August 24, 2017 13:59 - CONCLUSION: 1. Significant improvement in the alignment of the patient's distal tibial and fibular fractures. Jaime Toledo MD Narrative Exam GENERAL: 52-year-old well-nourished, well-developed male lying in bed in no acute distress. SKIN: Warm and dry. HEAD: Normocephalic. EYES: Pupils equal round and reactive bilaterally. ENT: No nasal bleeding or discharge. Mucous membranes pink and moist. NECK: Trachea midline. No JVD. CARDIOVASCULAR: Regular rate and rhythm. RESPIRATORY: Lungs are clear to auscultation. Breath sounds equal bilaterally. 3L NC. GASTROINTESTINAL: Abdomen soft, non-tender, nondistended. + BS MUSCULOSKELETAL: Extremities without cyanosis, + 2 BLE edema. Left lower extremity with ex-fix in place, pin sites clean. RLE with samira wrap in place. + perfused, MAEW. NEUROLOGICAL: Awake and alert. Normal speech. A/P Problem List: (1) Fall from ladder ICD Codes: W11.XXXA - Fall on and from ladder, initial encounter Status: Acute (2) Fracture of right tibial plateau ICD Codes: S82.141A - Displaced bicondylar fracture of right tibia, initial encounter for closed fracture Status: Acute (3) Open fracture of tibia and fibula ICD Codes: S82.209B - Unspecified fracture of shaft of unspecified tibia, initial encounter for open fracture type I or II; S82.409B - Unspecified fracture of shaft of unspecified fibula, initial encounter for open fracture type I or II Status: Acute Discharge Planning [place]: Fell off a ladder approximately 8 feet landing on both feet. No LOC. INJURIES: Open LEFT tib fib fx RIGHT tibial plateau fx 08/24: I&D w/ Closed reduction, LEFT distal tibia/fibula pilon fx w/ ex-fix. Closed reduction RIGHT tibial plateau fx w/ ex-fix placement. 08/27: Pulmonary embolus RML, RLL 08/28: Removal of external fixation, open reduction and fixation right proximal tibia Open LEFT tib fib fx, RIGHT tibial plateau fx Orthopedics consulted 08/24: I&D w/ Closed reduction, LEFT distal tibia/fibula pilon fx w/ ex-fix. Closed reduction RIGHT tibial plateau fx w/ ex-fix placement 08/28: Removal of external fixation, open reduction and fixation right proximal tibia Pain control- increased frequency of [place] tabs, increased Neurontin dose Bowel regimen- PT and OT ordered NWB BLE Pin care BID Pulmonary embolus CTA shows pulmonary emboli within the right middle and lower lobe pulmonary artery branches Heparin drip per protocol O2 PRN HTN Resumed home meds: Cardizem. Lisinopril Plan of care discussed with patient and family at bedside. Collaborating trauma M.Jb agrees with plan. Case management consulted to assist with discharge planning. Remarks Patient seen and examined the nurse practitioner, patient continues to be stable awaiting orthopedic surgery when swelling of his lower extremity it is reduced Problem Qualifiers (1) Fall from ladder: Qualified Codes: W11.XXXA - Fall on and from ladder, initial encounter (2) Fracture of right tibial plateau: (3) Open fracture of tibia and fibula: Olga Chaidez Sep 03, 2017 15:53 Roberta Henao MD Sep 05, 2017 16:21
[2017-09-03 18:40] VITALS: BP 141/68; PULSE 83; RESP 20; TEMP 97.9; O2SAT 90
[2017-09-03] MEDS: traZODone HCL 50 MG TAB PO SCH (22:23)
[2017-09-03 23:45] VITALS: BP 121/57; PULSE 80; RESP 17; TEMP 98.9; O2SAT 96
[2017-09-04] MEDS: ACETAMINOPHEN/HYDROcodone 325 MG/10 MG TAB PO PRN ×7 (02:52→21:04)
[2017-09-04] MEDS: HEPARIN-D5W 25,000 U/250 ML 250 ML IV SCH (05:30)
[2017-09-04] MEDS: METHOCARBAMOL 500 MG TAB PO SCH ×3 (06:33→21:04)
[2017-09-04] MEDS: POLYETHYLENE GLYCOL 17 GM PKG PO SCH (08:17)
[2017-09-04] MEDS: DILTIAZEM-CD 180 MG CAP ER PO SCH (08:19)
[2017-09-04] MEDS: SERTRALINE HCL 100 MG TAB PO SCH (08:19)
[2017-09-04] MEDS: CHOLECALCIFEROL (VIT D3) 1000 UNIT TAB PO SCH (08:19)
[2017-09-04] MEDS: FAMOTIDINE 20 MG TAB PO SCH ×2 (08:19→21:04)
[2017-09-04] MEDS: DOCUSATE SODIUM 50 MG/SENNA 8.6 MG TAB PO SCH ×2 (08:19→21:00)
[2017-09-04] MEDS: LISINOPRIL 20 MG TAB PO SCH (08:20)
[2017-09-04] MEDS: BACITRACIN TOP OINT 15 GM TUBE TOP SCH ×2 (08:20→21:00)
[2017-09-04] MEDS: GABAPENTIN 400 MG CAP PO SCH ×3 (08:20→17:04)
[2017-09-04] MEDS: ERGOCALCIFEROL (VIT D2) 50,000 UNIT CAP PO SCH (09:20)
[2017-09-04 12:00] VITALS: BP 147/83; PULSE 85; RESP 16; TEMP 99.1; O2SAT 94
[2017-09-04] MEDS: fentaNYL 50 MCG/HR PATCH T-DERMAL SCH (14:54)
[2017-09-04] MEDS: REMOVE OLD DURAGESIC (FENTANYL) PATCH T-DERMAL SCH (14:54)
--- NOTE | 2017-09-04 15:57 | HHI.PR ---
Subjective Subjective Notes Pain better Frustrated he has to wait for surgery until next week Objective Vitals/I&O Vital Signs Date Time Temp Pulse Resp B/P (MAP) Pulse Ox O2 Delivery O2 Flow Rate FiO2 09/04/17 12:00 99.1 85 16 147/83 (104) 94 09/04/17 08:00 Room Air 09/03/17 20:40 21 09/02/17 01:09 4.00 Labs Laboratory Tests Test 09/04/17 06:55 Activated Partial Thromboplast Time 43.6 Radiology Last Impressions Tibia/Fibula X-Ray 08/28/17 0000 Signed Impressions: Service Date/Time: Monday, August 28, 2017 08:15 - CONCLUSION: 1. Fixation right tibia. Freddy De La Paz MD Lower Extremity Ultrasound 08/27/17 0000 Signed Impressions: Service Date/Time: August 13:46 - CONCLUSION: Right calf DVT. Elvin Moncada MD Chest X-Ray 08/27/17 0000 Signed Impressions: Service Date/Time: August 06:11 - CONCLUSION: Focal opacity in right midlung has masslike features. Recommend CT thorax for further characterization. Mango Murrell MD CT Angiography 08/27/17 0000 Signed Impressions: Service Date/Time: August 10:20 - CONCLUSION: 1. Pulmonary emboli within the right middle and lower lobe pulmonary artery branches. 2. Posterior infiltrates within the lower lobes and upper lobes bilaterally. 3. Tiny bilateral pleural effusions. 4. Enlarged fatty liver. 5. 8 mm low- density lesion within the right lobe near the dome which is indeterminate. Keyshawn Child MD Lower Extremity CT 08/25/17 0000 Signed Impressions: Service Date/Time: Friday, August 25, 2017 08:26 - CONCLUSION: 1. There are nondisplaced fractures involving the proximal one third shaft of the tibia. There is also a nondisplaced avulsion fracture involving the anterior tibial tuberosity. 2. There is a small 6 mm loose body in the posterior medial joint compartment. 3. Nondisplaced fracture involving the superior medial fibula. 4. Well-defined bone cyst in the distal femur and proximal tibia. Marco Dahl MD Knee X-Ray 08/24/17 0859 Signed Impressions: Service Date/Time: Thursday, August 24, 2017 09:17 - CONCLUSION: 1. Comminuted, mildly displaced fracture of the fibular head. Jaime Toledo MD Foot X-Ray 08/24/17 0859 Signed Impressions: Service Date/Time: Thursday, August 24, 2017 09:28 - CONCLUSION: 1. No acute fracture or dislocation in the foot. Jay Jay Diamond MD Ankle X-Ray 08/24/17 0000 Signed Impressions: Service Date/Time: Thursday, August 24, 2017 13:59 - CONCLUSION: 1. Significant improvement in the alignment of the patient's distal tibial and fibular fractures. Jaime Toledo MD Narrative Exam GENERAL: 52-year-old well-nourished, well-developed male lying in bed in no acute distress. SKIN: Warm and dry. HEAD: Normocephalic. EYES: Pupils equal round and reactive bilaterally. ENT: No nasal bleeding or discharge. Mucous membranes pink and moist. NECK: Trachea midline. No JVD. CARDIOVASCULAR: Regular rate and rhythm. RESPIRATORY: Lungs are clear to auscultation. Breath sounds equal bilaterally. GASTROINTESTINAL: Abdomen soft, non-tender, nondistended. + BS MUSCULOSKELETAL: Extremities without cyanosis, + 2 BLE edema. Left lower extremity with ex-fix in place, pin sites clean. RLE with samira wrap in place. + perfused, MAEW. NEUROLOGICAL: Awake and alert. Normal speech. A/P Problem List: (1) Fall from ladder ICD Codes: W11.XXXA - Fall on and from ladder, initial encounter Status: Acute (2) Fracture of right tibial plateau ICD Codes: S82.141A - Displaced bicondylar fracture of right tibia, initial encounter for closed fracture Status: Acute (3) Open fracture of tibia and fibula ICD Codes: S82.209B - Unspecified fracture of shaft of unspecified tibia, initial encounter for open fracture type I or II; S82.409B - Unspecified fracture of shaft of unspecified fibula, initial encounter for open fracture type I or II Status: Acute Discharge Planning [place]: Fell off a ladder approximately 8 feet landing on both feet. No LOC. INJURIES: Open LEFT tib fib fx RIGHT tibial plateau fx 08/24: I&D w/ Closed reduction, LEFT distal tibia/fibula pilon fx w/ ex-fix. Closed reduction RIGHT tibial plateau fx w/ ex-fix placement. 08/27: Pulmonary embolus RML, RLL 08/28: Removal of external fixation, open reduction and fixation right proximal tibia Open LEFT tib fib fx, RIGHT tibial plateau fx Orthopedics consulted 08/24: I&D w/ Closed reduction, LEFT distal tibia/fibula pilon fx w/ ex-fix. Closed reduction RIGHT tibial plateau fx w/ ex-fix placement 08/28: Removal of external fixation, open reduction and fixation right proximal tibia Pain control Bowel regimen- PT and OT ordered NWB BLE Pin care BID Orthopedics planning surgery Thursday or Thursday Pulmonary embolus CTA shows pulmonary emboli within the right middle and lower lobe pulmonary artery branches DC Heparin gtt Start therapeutic Lovenox 110 mg twice a day, d/w pharmacist HTN Resumed home meds: Cardizem. Lisinopril Plan of care discussed with patient and RN at bedside. Collaborating trauma M.D. agrees with plan. Case management consulted to assist with discharge planning. Problem Qualifiers (1) Fall from ladder: Qualified Codes: W11.XXXA - Fall on and from ladder, initial encounter (2) Fracture of right tibial plateau: (3) Open fracture of tibia and fibula: Olga Chaidez Sep 04, 2017 15:57
[2017-09-04] MEDS: ENOXAPARIN SODIUM 120 MG/0.8 ML SYRINGE SQ SCH (17:04)
[2017-09-04 18:17] VITALS: BP 141/78; PULSE 85; RESP 16; TEMP 99.4; O2SAT 92
[2017-09-04 20:05] VITALS: BP 144/68; PULSE 86; RESP 18; TEMP 98.2; O2SAT 95
[2017-09-04] MEDS: traZODone HCL 50 MG TAB PO SCH (21:04)
[2017-09-04 23:45] VITALS: BP 143/76; PULSE 86; RESP 17; TEMP 98.2; O2SAT 96
[2017-09-05] MEDS: ACETAMINOPHEN/HYDROcodone 325 MG/10 MG TAB PO PRN ×7 (02:10→21:32)
[2017-09-05] MEDS: METHOCARBAMOL 500 MG TAB PO SCH ×3 (06:14→21:33)
[2017-09-05] MEDS: ENOXAPARIN SODIUM 120 MG/0.8 ML SYRINGE SQ SCH ×2 (06:14→16:23)
[2017-09-05 08:00] VITALS: BP 122/70; PULSE 80; RESP 18; TEMP 97.3; O2SAT 98
[2017-09-05] MEDS: CHOLECALCIFEROL (VIT D3) 1000 UNIT TAB PO SCH (08:58)
[2017-09-05] MEDS: DOCUSATE SODIUM 50 MG/SENNA 8.6 MG TAB PO SCH ×2 (08:58→21:31)
[2017-09-05] MEDS: FAMOTIDINE 20 MG TAB PO SCH ×2 (08:58→21:31)
[2017-09-05] MEDS: DILTIAZEM-CD 180 MG CAP ER PO SCH (08:58)
[2017-09-05] MEDS: GABAPENTIN 400 MG CAP PO SCH ×3 (08:58→16:23)
[2017-09-05] MEDS: SERTRALINE HCL 100 MG TAB PO SCH (08:58)
[2017-09-05] MEDS: LISINOPRIL 20 MG TAB PO SCH (08:58)
[2017-09-05] MEDS: BACITRACIN TOP OINT 15 GM TUBE TOP SCH ×2 (09:00→21:33)
[2017-09-05] MEDS: POLYETHYLENE GLYCOL 17 GM PKG PO SCH (09:00)
[2017-09-05 11:57] VITALS: BP 156/77; PULSE 84; RESP 17; TEMP 98; O2SAT 96
--- NOTE | 2017-09-05 13:27 | HHI.PR ---
Subjective Subjective Notes Does not want to get OOB as he feels his LLE edema gets worse-educated her regarding risks of staying in bed No other complaints Objective Vitals/I&O Vital Signs Date Time Temp Pulse Resp B/P (MAP) Pulse Ox O2 Delivery O2 Flow Rate FiO2 09/05/17 12:02 Room Air 09/05/17 11:57 98.0 84 17 156/77 (103) 96 09/05/17 07:40 21 09/02/17 01:09 4.00 Labs Laboratory Tests Test 08/26/17 03:07 08/27/17 04:00 08/27/17 13:14 09/02/17 02:54 Total Creatine Kinase 971 U/L Creatine Kinase MB 17.0 NG/ML Creatine Kinase MB % 1.8 % Neutrophils (%) (Auto) 77.0 % Lymphocytes (%) (Auto) 13.7 % Monocytes (%) (Auto) 7.6 % Eosinophils (%) (Auto) 1.3 % Basophils (%) (Auto) 0.4 % Neutrophils # (Auto) 11.0 TH/MM3 Lymphocytes # (Auto) 2.0 TH/MM3 Monocytes # (Auto) 1.1 TH/MM3 Eosinophils # (Auto) 0.2 TH/MM3 Basophils # (Auto) 0.1 TH/MM3 CBC Comment DIFF FINAL Differential Comment Blood Urea Nitrogen 15 MG/DL Creatinine 1.08 MG/DL Random Glucose 114 MG/DL Total Protein 6.0 GM/DL Albumin 3.0 GM/DL Calcium Level 7.9 MG/DL Alkaline Phosphatase 57 U/L Aspartate Amino Transf (AST/SGOT) 51 U/L Alanine Aminotransferase (ALT/SGPT) 20 U/L Total Bilirubin 0.6 MG/DL Sodium Level 141 MEQ/L Potassium Level 4.2 MEQ/L Chloride Level 106 MEQ/L Carbon Dioxide Level 28.7 MEQ/L Anion Gap 6 MEQ/L Estimat Glomerular Filtration Rate 71 ML/MIN Prothrombin Time 9.9 SEC Prothromb Time International Ratio 1.0 RATIO White Blood Count 15.3 TH/MM3 Red Blood Count 3.30 MIL/MM3 Hemoglobin 10.2 GM/DL Hematocrit 31.2 % Mean Corpuscular Volume 94.4 FL Mean Corpuscular Hemoglobin 31.0 PG Mean Corpuscular Hemoglobin Concent 32.8 % Red Cell Distribution Width 12.9 % Platelet Count 433 TH/MM3 Mean Platelet Volume 7.8 FL Test 09/04/17 06:55 Activated Partial Thromboplast Time 43.6 SEC Radiology Last Impressions Tibia/Fibula X-Ray 08/28/17 0000 Signed Impressions: Service Date/Time: Monday, August 28, 2017 08:15 - CONCLUSION: 1. Fixation right tibia. Freddy De La Paz MD Lower Extremity Ultrasound 08/27/17 0000 Signed Impressions: Service Date/Time: August 13:46 - CONCLUSION: Right calf DVT. Elvin Moncada MD Chest X-Ray 08/27/17 0000 Signed Impressions: Service Date/Time: August 06:11 - CONCLUSION: Focal opacity in right midlung has masslike features. Recommend CT thorax for further characterization. Mango Murrell MD CT Angiography 08/27/17 0000 Signed Impressions: Service Date/Time: August 10:20 - CONCLUSION: 1. Pulmonary emboli within the right middle and lower lobe pulmonary artery branches. 2. Posterior infiltrates within the lower lobes and upper lobes bilaterally. 3. Tiny bilateral pleural effusions. 4. Enlarged fatty liver. 5. 8 mm low- density lesion within the right lobe near the dome which is indeterminate. Keyshawn Child MD Lower Extremity CT 08/25/17 0000 Signed Impressions: Service Date/Time: Friday, August 25, 2017 08:26 - CONCLUSION: 1. There are nondisplaced fractures involving the proximal one third shaft of the tibia. There is also a nondisplaced avulsion fracture involving the anterior tibial tuberosity. 2. There is a small 6 mm loose body in the posterior medial joint compartment. 3. Nondisplaced fracture involving the superior medial fibula. 4. Well-defined bone cyst in the distal femur and proximal tibia. Marco Dahl MD Knee X-Ray 08/24/17 0859 Signed Impressions: Service Date/Time: Thursday, August 24, 2017 09:17 - CONCLUSION: 1. Comminuted, mildly displaced fracture of the fibular head. Jaime Toledo MD Foot X-Ray 08/24/17 0859 Signed Impressions: Service Date/Time: Thursday, August 24, 2017 09:28 - CONCLUSION: 1. No acute fracture or dislocation in the foot. Jay Jay Diamond MD Ankle X-Ray 08/24/17 0000 Signed Impressions: Service Date/Time: Thursday, August 24, 2017 13:59 - CONCLUSION: 1. Significant improvement in the alignment of the patient's distal tibial and fibular fractures. Jaime Toledo MD Narrative Exam GENERAL: 52-year-old well-nourished, well-developed male lying in bed in no acute distress. SKIN: Warm and dry. HEAD: Normocephalic. EYES: Pupils equal round and reactive bilaterally. ENT: No nasal bleeding or discharge. Mucous membranes pink and moist. NECK: Trachea midline. No JVD. CARDIOVASCULAR: Regular rate and rhythm. RESPIRATORY: Lungs are clear to auscultation. Breath sounds equal bilaterally. GASTROINTESTINAL: Abdomen soft, non-tender, nondistended. + BS MUSCULOSKELETAL: Extremities without cyanosis, + 2 BLE edema. Left lower extremity with ex-fix in place, pin sites clean-fracture blisters noted on left foot. Right knee with samira wrap in place. + perfused, MAEW. NEUROLOGICAL: Awake and alert. Normal speech. A/P Problem List: (1) Fall from ladder ICD Codes: W11.XXXA - Fall on and from ladder, initial encounter Status: Acute (2) Fracture of right tibial plateau ICD Codes: S82.141A - Displaced bicondylar fracture of right tibia, initial encounter for closed fracture Status: Acute (3) Open fracture of tibia and fibula ICD Codes: S82.209B - Unspecified fracture of shaft of unspecified tibia, initial encounter for open fracture type I or II; S82.409B - Unspecified fracture of shaft of unspecified fibula, initial encounter for open fracture type I or II Status: Acute Discharge Planning [place]: Fell off a ladder approximately 8 feet landing on both feet. No LOC. INJURIES: Open LEFT tib fib fx RIGHT tibial plateau fx 08/24: I&D w/ Closed reduction, LEFT distal tibia/fibula pilon fx w/ ex-fix. Closed reduction RIGHT tibial plateau fx w/ ex-fix placement. 08/27: Pulmonary embolus RML, RLL 08/28: Removal of external fixation, open reduction and fixation right proximal tibia Open LEFT tib fib fx, RIGHT tibial plateau fx Orthopedics consulted 08/24: I&D w/ Closed reduction, LEFT distal tibia/fibula pilon fx w/ ex-fix. Closed reduction RIGHT tibial plateau fx w/ ex-fix placement 08/28: Removal of external fixation, open reduction and fixation right proximal tibia Pain control Bowel regimen- OOB -PT and OT ordered-educated on importance of getting OOB and reducing risks of PNA, PE. Explained risk versus benefit ratio NWB BLE Pin care BID Orthopedics planning surgery Thursday or Thursday Pulmonary embolus CTA shows pulmonary emboli within the right middle and lower lobe pulmonary artery branches Therapeutic Lovenox 110 mg BID HTN Resumed home meds: Cardizem. Lisinopril Plan of care discussed with patient, family and RN at bedside. Collaborating trauma M.D. agrees with plan. Case management consulted to assist with discharge planning. Problem Qualifiers (1) Fall from ladder: Qualified Codes: W11.XXXA - Fall on and from ladder, initial encounter (2) Fracture of right tibial plateau: (3) Open fracture of tibia and fibula: Olga Chaidez Sep 05, 2017 13:27
[2017-09-05 16:21] VITALS: BP 138/68; PULSE 86; RESP 16; TEMP 98.1; O2SAT 96
[2017-09-05 19:50] VITALS: BP 140/71; PULSE 87; RESP 18; TEMP 99.4; O2SAT 98
[2017-09-05] MEDS: traZODone HCL 50 MG TAB PO SCH (21:31)
[2017-09-05 23:43] VITALS: BP 150/80; PULSE 80; RESP 19; TEMP 99; O2SAT 97
[2017-09-06] VITALS (7 sets, daily range): BP systolic 118–140; BP diastolic 64–69; PULSE 76–91; RESP 18; TEMP 96.8–99.1; O2SAT 95–96
[2017-09-06] MEDS: ACETAMINOPHEN/HYDROcodone 325 MG/10 MG TAB PO PRN ×7 (00:40→23:45)
[2017-09-06] MEDS: METHOCARBAMOL 500 MG TAB PO SCH ×3 (05:38→23:45)
[2017-09-06] MEDS: ENOXAPARIN SODIUM 120 MG/0.8 ML SYRINGE SQ SCH ×2 (05:39→10:38)
[2017-09-06] MEDS: BACITRACIN TOP OINT 15 GM TUBE TOP SCH ×2 (09:00→20:35)
[2017-09-06] MEDS: DOCUSATE SODIUM 50 MG/SENNA 8.6 MG TAB PO SCH ×2 (09:12→20:34)
[2017-09-06] MEDS: SERTRALINE HCL 100 MG TAB PO SCH (09:12)
[2017-09-06] MEDS: GABAPENTIN 400 MG CAP PO SCH ×3 (09:13→16:29)
[2017-09-06] MEDS: CHOLECALCIFEROL (VIT D3) 1000 UNIT TAB PO SCH (09:13)
[2017-09-06] MEDS: FAMOTIDINE 20 MG TAB PO SCH ×2 (09:13→20:34)
[2017-09-06] MEDS: DILTIAZEM-CD 180 MG CAP ER PO SCH (09:13)
[2017-09-06] MEDS: LISINOPRIL 20 MG TAB PO SCH (09:13)
[2017-09-06] MEDS: SODIUM CHLORIDE 0.9% FLUSH 10 ML FLUSH IV FLUSH PRN (09:15)
[2017-09-06] MEDS: POLYETHYLENE GLYCOL 17 GM PKG PO SCH (09:17)
--- NOTE | 2017-09-06 13:00 | HHI.PR ---
Subjective Subjective Notes Feeling better No complaints Objective Vitals/I&O Vital Signs Date Time Temp Pulse Resp B/P (MAP) Pulse Ox O2 Delivery O2 Flow Rate FiO2 09/06/17 11:47 97.8 82 18 118/64 (82) 96 09/05/17 12:02 Room Air 09/05/17 07:40 21 Labs Laboratory Tests Test 08/26/17 03:07 08/27/17 04:00 08/27/17 13:14 09/02/17 02:54 Total Creatine Kinase 971 U/L Creatine Kinase MB 17.0 NG/ML Creatine Kinase MB % 1.8 % Neutrophils (%) (Auto) 77.0 % Lymphocytes (%) (Auto) 13.7 % Monocytes (%) (Auto) 7.6 % Eosinophils (%) (Auto) 1.3 % Basophils (%) (Auto) 0.4 % Neutrophils # (Auto) 11.0 TH/MM3 Lymphocytes # (Auto) 2.0 TH/MM3 Monocytes # (Auto) 1.1 TH/MM3 Eosinophils # (Auto) 0.2 TH/MM3 Basophils # (Auto) 0.1 TH/MM3 CBC Comment DIFF FINAL Differential Comment Blood Urea Nitrogen 15 MG/DL Creatinine 1.08 MG/DL Random Glucose 114 MG/DL Total Protein 6.0 GM/DL Albumin 3.0 GM/DL Calcium Level 7.9 MG/DL Alkaline Phosphatase 57 U/L Aspartate Amino Transf (AST/SGOT) 51 U/L Alanine Aminotransferase (ALT/SGPT) 20 U/L Total Bilirubin 0.6 MG/DL Sodium Level 141 MEQ/L Potassium Level 4.2 MEQ/L Chloride Level 106 MEQ/L Carbon Dioxide Level 28.7 MEQ/L Anion Gap 6 MEQ/L Estimat Glomerular Filtration Rate 71 ML/MIN Prothrombin Time 9.9 SEC Prothromb Time International Ratio 1.0 RATIO White Blood Count 15.3 TH/MM3 Red Blood Count 3.30 MIL/MM3 Hemoglobin 10.2 GM/DL Hematocrit 31.2 % Mean Corpuscular Volume 94.4 FL Mean Corpuscular Hemoglobin 31.0 PG Mean Corpuscular Hemoglobin Concent 32.8 % Red Cell Distribution Width 12.9 % Platelet Count 433 TH/MM3 Mean Platelet Volume 7.8 FL Test 09/04/17 06:55 Activated Partial Thromboplast Time 43.6 SEC Radiology Last Impressions Tibia/Fibula X-Ray 08/28/17 0000 Signed Impressions: Service Date/Time: Monday, August 28, 2017 08:15 - CONCLUSION: 1. Fixation right tibia. Freddy De La Paz MD Lower Extremity Ultrasound 08/27/17 0000 Signed Impressions: Service Date/Time: August 13:46 - CONCLUSION: Right calf DVT. Elvin Moncada MD Chest X-Ray 08/27/17 0000 Signed Impressions: Service Date/Time: August 06:11 - CONCLUSION: Focal opacity in right midlung has masslike features. Recommend CT thorax for further characterization. Mango Murrell MD CT Angiography 08/27/17 0000 Signed Impressions: Service Date/Time: August 10:20 - CONCLUSION: 1. Pulmonary emboli within the right middle and lower lobe pulmonary artery branches. 2. Posterior infiltrates within the lower lobes and upper lobes bilaterally. 3. Tiny bilateral pleural effusions. 4. Enlarged fatty liver. 5. 8 mm low- density lesion within the right lobe near the dome which is indeterminate. Keyshawn Child MD Lower Extremity CT 08/25/17 0000 Signed Impressions: Service Date/Time: Friday, August 25, 2017 08:26 - CONCLUSION: 1. There are nondisplaced fractures involving the proximal one third shaft of the tibia. There is also a nondisplaced avulsion fracture involving the anterior tibial tuberosity. 2. There is a small 6 mm loose body in the posterior medial joint compartment. 3. Nondisplaced fracture involving the superior medial fibula. 4. Well-defined bone cyst in the distal femur and proximal tibia. Marco Dahl MD Knee X-Ray 08/24/17 0859 Signed Impressions: Service Date/Time: Thursday, August 24, 2017 09:17 - CONCLUSION: 1. Comminuted, mildly displaced fracture of the fibular head. Jaime Toledo MD Foot X-Ray 08/24/17 0859 Signed Impressions: Service Date/Time: Thursday, August 24, 2017 09:28 - CONCLUSION: 1. No acute fracture or dislocation in the foot. Jay Jay Diamond MD Ankle X-Ray 08/24/17 0000 Signed Impressions: Service Date/Time: Thursday, August 24, 2017 13:59 - CONCLUSION: 1. Significant improvement in the alignment of the patient's distal tibial and fibular fractures. Jaime Toledo MD Narrative Exam GENERAL: 52-year-old well-nourished, well-developed male lying in bed in no acute distress. SKIN: Warm and dry. HEAD: Normocephalic. NECK: Trachea midline. No JVD. CARDIOVASCULAR: Regular rate and rhythm. RESPIRATORY: Lungs are clear to auscultation. Breath sounds equal bilaterally. GASTROINTESTINAL: Abdomen soft, non-tender, nondistended. + BS MUSCULOSKELETAL: Extremities without cyanosis, + 2 LLE edema. Left lower extremity with ex-fix in place, pin sites clean-fracture blisters, erythema noted on left dorsal foot. Right knee with samira wrap in place. + perfused, MAEW. NEUROLOGICAL: Awake and alert. Normal speech. A/P Problem List: (1) Fall from ladder ICD Codes: W11.XXXA - Fall on and from ladder, initial encounter Status: Acute (2) Fracture of right tibial plateau ICD Codes: S82.141A - Displaced bicondylar fracture of right tibia, initial encounter for closed fracture Status: Acute (3) Open fracture of tibia and fibula ICD Codes: S82.209B - Unspecified fracture of shaft of unspecified tibia, initial encounter for open fracture type I or II; S82.409B - Unspecified fracture of shaft of unspecified fibula, initial encounter for open fracture type I or II Status: Acute Discharge Planning [place]: Fell off a ladder approximately 8 feet landing on both feet. No LOC. INJURIES: Open LEFT tib fib fx RIGHT tibial plateau fx 08/24: I&D w/ Closed reduction, LEFT distal tibia/fibula pilon fx w/ ex-fix. Closed reduction RIGHT tibial plateau fx w/ ex-fix placement. 08/27: Pulmonary embolus RML, RLL 08/28: Removal of external fixation, open reduction and fixation right proximal tibia Open LEFT tib fib fx, RIGHT tibial plateau fx Orthopedics consulted 08/24: I&D w/ Closed reduction, LEFT distal tibia/fibula pilon fx w/ ex-fix. Closed reduction RIGHT tibial plateau fx w/ ex-fix placement 08/28: Removal of external fixation, open reduction and fixation right proximal tibia Pain control Bowel regimen- OOB -PT and OT ordered NWB BLE Pin care BID Orthopedics potentially planning surgery Thursday or Thursday Pulmonary embolus CTA shows pulmonary emboli within the right middle and lower lobe pulmonary artery branches Therapeutic Lovenox 110 mg BID HTN Resumed home meds: Cardizem. Lisinopril Plan of care discussed with patient, family and RN at bedside. Collaborating trauma M.Jb agrees with plan. Case management consulted to assist with discharge planning. Patient has been accepted at [facility] pending further surgery. Problem Qualifiers (1) Fall from ladder: Qualified Codes: W11.XXXA - Fall on and from ladder, initial encounter (2) Fracture of right tibial plateau: (3) Open fracture of tibia and fibula: Olga Chaidez Sep 06, 2017 13:00
[2017-09-06] MEDS: traZODone HCL 50 MG TAB PO SCH (20:35)
[2017-09-07] VITALS (7 sets, daily range): BP systolic 124–143; BP diastolic 63–75; PULSE 81–93; RESP 18; TEMP 97.7–98.6; O2SAT 93–97
[2017-09-07] MEDS ORDERED: CHLORHEXIDINE GLUCONATE 2 % 1 PACK (2 CLOTHS) TOPICAL PRN (01:15)
[2017-09-07] MEDS ORDERED: SODIUM CHLORID 0.9% 500 ML IV PRN (01:15)
[2017-09-07] MEDS ORDERED: METOPROLOL TARTRATE 25 MG TAB PO PRN (01:15)
[2017-09-07] MEDS ORDERED: POVIDONE IODINE 5% (ANTISEPSIS KIT) 4 APPLICATIONS EACH NARE PRN (01:15)
[2017-09-07] MEDS ORDERED: LACTATED RINGER'S 1000 ML IV PRN (01:15)
[2017-09-07] MEDS: ACETAMINOPHEN/HYDROcodone 325 MG/10 MG TAB PO PRN ×6 (02:57→17:46)
[2017-09-07] MEDS: METHOCARBAMOL 500 MG TAB PO SCH ×3 (06:14→20:51)
--- NOTE | 2017-09-07 06:39 | PD.ORT.PN ---
Subjective Subjective Remarks Resting comfortably with no new complaints Objective Vitals Vital Signs Date Time Temp Pulse Resp B/P (MAP) Pulse Ox O2 Delivery O2 Flow Rate FiO2 09/07/17 03:00 97.7 81 18 124/69 (87) 96 09/06/17 23:42 98.6 86 18 137/66 (89) 95 09/06/17 21:41 96 21 09/06/17 19:52 99.1 91 18 140/69 (92) 95 09/06/17 16:00 97.9 86 18 140/67 (91) 95 09/06/17 11:47 97.8 82 18 118/64 (82) 96 09/06/17 08:02 97.7 76 18 137/65 (89) 96 I/O 09/06/17 09/06/17 09/06/17 09/07/17 09/07/17 09/07/17 07:00 15:00 23:00 07:00 15:00 23:00 Intake Total 480 ml 960 ml 0 ml Output Total 550 ml 300 ml Balance -70 ml 960 ml -300 ml Intake Oral 480 ml 960 ml 0 ml Output Urine Total 550 ml 300 ml # Voids 1 4 2 # Bowel Movements 0 0 0 Imaging Last 24 hours Impressions Tibia/Fibula X-Ray 08/24/17 0859 Signed Impressions: Service Date/Time: Thursday, August 24, 2017 09:42 - CONCLUSION: 1. Comminuted fracture of the proximal right tibia, as above. Jay Jay Diamond MD Tibia/Fibula X-Ray 08/24/17 0859 Signed Impressions: Service Date/Time: Thursday, August 24, 2017 09:17 - CONCLUSION: 1. Severely comminuted fracture involving the distal tibia the distal tibia with essentially shattered. The ankle mortise itself is intact. 2. Angulated fracture involving the distal fibula. 3. There are several bone fragments adjacent to the fibular head is below the knee consistent with mildly comminuted fracture of the proximal fibular head as well. Jaime Toledo MD Knee X-Ray 08/24/17 0859 Signed Impressions: Service Date/Time: Thursday, August 24, 2017 09:17 - CONCLUSION: 1. Comminuted, mildly displaced fracture of the fibular head. Jaime Toledo MD Knee X-Ray 08/24/1759 Signed Impressions: Service Date/Time: Thursday, August 24, 2017 09:42 - CONCLUSION: 1. Comminuted, mildly displaced fracture of the proximal right tibia. 2. The tibial plateaus are intact. There is however it advanced tricompartmental osteoarthritis in the right knee. Jaime Toledo MD Foot X-Ray 08/24/1759 Signed Impressions: Service Date/Time: Thursday, August 24, 2017 09:28 - CONCLUSION: 1. No acute fracture or dislocation in the foot. Jay Jay Diamond MD Objective Remarks LLE: +exfix. pin sites clean. traumatic wound closed. 2+swelling, but improving NVI RLE: Clean dry dressings intact. Mild swelling over lower leg. Intact sensation distally with active dorsiflexion plantar flexion of foot Assessment & Plan Assessment and Plan 1) Left Tibial Pilon Fx s/p Exfix 2) Right Tibial Plateau Fx ORIF POD 9 Nonweightbearing right lower extremity PT for passive range of motion of knee and passive and active range of motion of ankle Daily dressing changes to right lower extremity Continue pin care twice a day and daily dressing changes to left lower extremity Continue elevation and ice to decrease swelling Anticipate swelling to be improved for surgery on Thursday for tibial pilon Nothing by mouth after midnight One-time dose 60 mg of Lovenox Plan for surgery tomorrow Bed rest elevate/ice Issac Che Jr. Sep 07, 2017 06:39
[2017-09-07] MEDS ORDERED: ENOXAPARIN SODIUM 60 MG/0.6 ML SYRINGE SQ ONE (06:45)
[2017-09-07] MEDS: SERTRALINE HCL 100 MG TAB PO SCH (08:48)
[2017-09-07] MEDS: DOCUSATE SODIUM 50 MG/SENNA 8.6 MG TAB PO SCH ×2 (08:48→20:51)
[2017-09-07] MEDS: CHOLECALCIFEROL (VIT D3) 1000 UNIT TAB PO SCH (08:48)
[2017-09-07] MEDS: DILTIAZEM-CD 180 MG CAP ER PO SCH (08:48)
[2017-09-07] MEDS: GABAPENTIN 400 MG CAP PO SCH ×3 (08:48→17:46)
[2017-09-07] MEDS: LISINOPRIL 20 MG TAB PO SCH (08:49)
[2017-09-07] MEDS: POLYETHYLENE GLYCOL 17 GM PKG PO SCH (08:49)
[2017-09-07] MEDS: FAMOTIDINE 20 MG TAB PO SCH ×2 (08:49→20:51)
[2017-09-07] MEDS: BACITRACIN TOP OINT 15 GM TUBE TOP SCH ×2 (08:49→20:52)
[2017-09-07 13:13] LABS: AUTOMATED NEUTROPHIL # 10.8 TH/MM3 (1.8-7.7); BASOPHIL # 0.1 TH/MM3 (0-0.2); BASOPHIL % 0.9 % (0.0-2.0); EOSINOPHIL # 0.2 TH/MM3 (0-0.4); EOSINOPHIL % 1.6 % (0.0-4.0); HEMATOCRIT 32.8 % (39.0-51.0); HEMOGLOBIN 10.8 GM/DL (13.0-17.0); LYMPH % 13.7 % (9.0-44.0); LYMPHOCYTE # 1.9 TH/MM3 (1.0-4.8); MEAN CELL VOLUME 92.2 FL (80.0-100.0); MEAN CORPUSCULAR HEMOGLOBIN 30.3 PG (27.0-34.0); MEAN CORPUSCULAR HGB CONC 32.9 % (32.0-36.0); MEAN PLATELET VOLUME 7.2 FL (7.0-11.0); MONO % 5.1 % (0.0-8.0); MONOCYTE # 0.7 TH/MM3 (0-0.9); NEUT % 78.7 % (16.0-70.0); PLATELET COUNT 753 TH/MM3 (150-450); RED BLOOD COUNT 3.56 MIL/MM3 (4.50-5.90); RED CELL DISTRIBUTION WIDTH 13.5 % (11.6-17.2); WHITE BLOOD COUNT 13.7 TH/MM3 (4.0-11.0)
[2017-09-07 13:44] LABS: BICARBONATE 30.6 MEQ/L (21.0-32.0); CALCIUM 9.2 MG/DL (8.5-10.1); CREATININE 1.04 MG/DL (0.60-1.30)
--- NOTE | 2017-09-07 13:54 | HHI.PR ---
Subjective Subjective Notes Orthopedics planning surgery on LLE tomorrow Pain controlled Objective Vitals/I&O Vital Signs Date Time Temp Pulse Resp B/P (MAP) Pulse Ox O2 Delivery O2 Flow Rate FiO2 09/07/17 12:00 98.1 87 18 141/75 (97) 93 09/06/17 21:41 21 09/05/17 12:02 Room Air Labs Laboratory Tests Test 09/07/17 12:54 White Blood Count 13.7 Red Blood Count 3.56 Hemoglobin 10.8 Hematocrit 32.8 Mean Corpuscular Volume 92.2 Mean Corpuscular Hemoglobin 30.3 Mean Corpuscular Hemoglobin Concent 32.9 Red Cell Distribution Width 13.5 Platelet Count 753 Mean Platelet Volume 7.2 Neutrophils (%) (Auto) 78.7 Lymphocytes (%) (Auto) 13.7 Monocytes (%) (Auto) 5.1 Eosinophils (%) (Auto) 1.6 Basophils (%) (Auto) 0.9 Neutrophils # (Auto) 10.8 Lymphocytes # (Auto) 1.9 Monocytes # (Auto) 0.7 Eosinophils # (Auto) 0.2 Basophils # (Auto) 0.1 CBC Comment DIFF FINAL Differential Comment Blood Urea Nitrogen 23 Creatinine 1.04 Random Glucose 109 Calcium Level 9.2 Sodium Level 138 Potassium Level 4.3 Chloride Level 100 Carbon Dioxide Level 30.6 Anion Gap 7 Estimat Glomerular Filtration Rate 74 Radiology Last Impressions Tibia/Fibula X-Ray 08/28/17 0000 Signed Impressions: Service Date/Time: Monday, August 28, 2017 08:15 - CONCLUSION: 1. Fixation right tibia. Freddy De La Paz MD Lower Extremity Ultrasound 08/27/17 0000 Signed Impressions: Service Date/Time: August 13:46 - CONCLUSION: Right calf DVT. Elvin Moncada MD Chest X-Ray 08/27/17 0000 Signed Impressions: Service Date/Time: August 06:11 - CONCLUSION: Focal opacity in right midlung has masslike features. Recommend CT thorax for further characterization. Mango Murrell MD CT Angiography 08/27/17 0000 Signed Impressions: Service Date/Time: August 10:20 - CONCLUSION: 1. Pulmonary emboli within the right middle and lower lobe pulmonary artery branches. 2. Posterior infiltrates within the lower lobes and upper lobes bilaterally. 3. Tiny bilateral pleural effusions. 4. Enlarged fatty liver. 5. 8 mm low- density lesion within the right lobe near the dome which is indeterminate. Keyshawn Child MD Lower Extremity CT 08/25/17 0000 Signed Impressions: Service Date/Time: Friday, August 25, 2017 08:26 - CONCLUSION: 1. There are nondisplaced fractures involving the proximal one third shaft of the tibia. There is also a nondisplaced avulsion fracture involving the anterior tibial tuberosity. 2. There is a small 6 mm loose body in the posterior medial joint compartment. 3. Nondisplaced fracture involving the superior medial fibula. 4. Well-defined bone cyst in the distal femur and proximal tibia. Marco Dahl MD Knee X-Ray 08/24/17 0859 Signed Impressions: Service Date/Time: Thursday, August 24, 2017 09:17 - CONCLUSION: 1. Comminuted, mildly displaced fracture of the fibular head. Jaime Toledo MD Foot X-Ray 08/24/17 0859 Signed Impressions: Service Date/Time: Thursday, August 24, 2017 09:28 - CONCLUSION: 1. No acute fracture or dislocation in the foot. Jay Jay Diamond MD Ankle X-Ray 08/24/17 0000 Signed Impressions: Service Date/Time: Thursday, August 24, 2017 13:59 - CONCLUSION: 1. Significant improvement in the alignment of the patient's distal tibial and fibular fractures. Jaime Toledo MD Narrative Exam GENERAL: 52-year-old well-nourished, well-developed male lying in bed in no acute distress. SKIN: Warm and dry. HEAD: Normocephalic. NECK: Trachea midline. No JVD. CARDIOVASCULAR: Regular rate and rhythm. RESPIRATORY: Lungs are clear to auscultation. Breath sounds equal bilaterally. GASTROINTESTINAL: Abdomen soft, non-tender, nondistended. + BS MUSCULOSKELETAL: Extremities without cyanosis, + 2 LLE edema. Left lower extremity with ex-fix in place, pin sites clean-fracture blisters, erythema noted on left dorsal foot. Right knee with samira wrap in place. + perfused, MAEW. NEUROLOGICAL: Awake and alert. Normal speech. A/P Problem List: (1) Fall from ladder ICD Codes: W11.XXXA - Fall on and from ladder, initial encounter Status: Acute (2) Fracture of right tibial plateau ICD Codes: S82.141A - Displaced bicondylar fracture of right tibia, initial encounter for closed fracture Status: Acute (3) Open fracture of tibia and fibula ICD Codes: S82.209B - Unspecified fracture of shaft of unspecified tibia, initial encounter for open fracture type I or II; S82.409B - Unspecified fracture of shaft of unspecified fibula, initial encounter for open fracture type I or II Status: Acute Discharge Planning [place]: Fell off a ladder approximately 8 feet landing on both feet. No LOC. INJURIES: Open LEFT tib fib fx RIGHT tibial plateau fx 08/24: I&D w/ Closed reduction, LEFT distal tibia/fibula pilon fx w/ ex-fix. Closed reduction RIGHT tibial plateau fx w/ ex-fix placement. 08/27: Pulmonary embolus RML, RLL 08/28: Removal of external fixation, open reduction and fixation right proximal tibia Open LEFT tib fib fx, RIGHT tibial plateau fx Orthopedics consulted 08/24: I&D w/ Closed reduction, LEFT distal tibia/fibula pilon fx w/ ex-fix. Closed reduction RIGHT tibial plateau fx w/ ex-fix placement 08/28: Removal of external fixation, open reduction and fixation right proximal tibia Pain control Bowel regimen- OOB -PT and OT ordered NWB BLE Pin care BID Orthopedics planning surgery Thursday for LLE Pulmonary embolus CTA shows pulmonary emboli within the right middle and lower lobe pulmonary artery branches Therapeutic Lovenox 110 mg BID- held for OR tomorrow, resume post-op HTN Resumed home meds: Cardizem. Lisinopril Plan of care discussed with patient and RN at bedside. Collaborating trauma MBeatris agrees with plan. Case management consulted to assist with discharge planning. Patient has been accepted at [facility] pending further surgery. Attending Statement The exam, history, and the medical decision-making described in the above note were completed with the assistance of the mid-level provider. I reviewed and agree with the findings presented. I attest that I had a [id number] encounter with the patient on the same day, and personally performed and documented my assessment and findings in the medical record. Problem Qualifiers (1) Fall from ladder: Qualified Codes: W11.XXXA - Fall on and from ladder, initial encounter (2) Fracture of right tibial plateau: (3) Open fracture of tibia and fibula: Olga Chaidez Sep 07, 2017 13:54 Mir Hines MD Sep 08, 2017 11:32
[2017-09-07] MEDS: REMOVE OLD DURAGESIC (FENTANYL) PATCH T-DERMAL SCH (13:58)
[2017-09-07] MEDS: fentaNYL 50 MCG/HR PATCH T-DERMAL SCH (13:58)
[2017-09-07] MEDS: traZODone HCL 50 MG TAB PO SCH (20:51)
[2017-09-08] VITALS: BP 137/75; PULSE 80; RESP 18; TEMP 97.7; O2SAT 95
[2017-09-08 04:00] VITALS: BP 131/67; PULSE 72; RESP 18; TEMP 97.6; O2SAT 99
[2017-09-08] MEDS: METHOCARBAMOL 500 MG TAB PO SCH ×3 (06:00→22:01)
--- NOTE | 2017-09-08 06:28 | PD.ORT.PN ---
Subjective Subjective Remarks POD 10 s/p ORIF right tibial plateau s/p exfix left pilon doing well. pain controlled Objective Vitals Vital Signs Date Time Temp Pulse Resp B/P (MAP) Pulse Ox O2 Delivery O2 Flow Rate FiO2 09/08/17 00:00 97.7 80 18 137/75 (95) 95 09/07/17 22:26 96 09/07/17 20:00 98.5 84 18 143/63 (89) 93 09/07/17 16:00 98.6 93 18 134/68 (90) 96 09/07/17 12:00 98.1 87 18 141/75 (97) 93 09/07/17 09:24 96 09/07/17 08:00 97.9 86 18 137/65 (89) 97 I/O 09/07/17 09/07/17 09/07/17 09/08/17 09/08/17 09/08/17 07:00 15:00 23:00 07:00 15:00 23:00 Intake Total 0 ml 720 ml Output Total 300 ml 400 ml Balance -300 ml 320 ml Intake Oral 0 ml 720 ml Output Urine Total 300 ml 400 ml # Voids 2 4 # Bowel Movements 0 0 Result Diagram: 09/07/17 1254 09/07/17 1254 Imaging Last 24 hours Impressions Tibia/Fibula X-Ray 08/24/17 0859 Signed Impressions: Service Date/Time: Thursday, August 24, 2017 09:42 - CONCLUSION: 1. Comminuted fracture of the proximal right tibia, as above. Jay Jay Diamond MD Tibia/Fibula X-Ray 08/24/17 0859 Signed Impressions: Service Date/Time: Thursday, August 24, 2017 09:17 - CONCLUSION: 1. Severely comminuted fracture involving the distal tibia the distal tibia with essentially shattered. The ankle mortise itself is intact. 2. Angulated fracture involving the distal fibula. 3. There are several bone fragments adjacent to the fibular head is below the knee consistent with mildly comminuted fracture of the proximal fibular head as well. Jaime Toledo MD Knee X-Ray 08/24/17 0859 Signed Impressions: Service Date/Time: Thursday, August 24, 2017 09:17 - CONCLUSION: 1. Comminuted, mildly displaced fracture of the fibular head. Jaime Toledo MD Knee X-Ray 08/24/1759 Signed Impressions: Service Date/Time: Thursday, August 24, 2017 09:42 - CONCLUSION: 1. Comminuted, mildly displaced fracture of the proximal right tibia. 2. The tibial plateaus are intact. There is however it advanced tricompartmental osteoarthritis in the right knee. Jaime Toledo MD Foot X-Ray 08/24/1759 Signed Impressions: Service Date/Time: Thursday, August 24, 2017 09:28 - CONCLUSION: 1. No acute fracture or dislocation in the foot. Jay Jay Diamond MD Objective Remarks LLE: +exfix. pin sites clean. traumatic wound closed. 2+swelling, but improving NVI RLE: Clean dry dressings intact. Mild swelling over lower leg. Intact sensation distally with active dorsiflexion plantar flexion of foot Assessment & Plan Assessment and Plan 1) Left Tibial Pilon Fx s/p Exfix 2) Right Tibial Plateau Fx ORIF POD 10 Nonweightbearing right lower extremity PT for passive range of motion of knee and passive and active range of motion of ankle Daily dressing changes to right lower extremity Continue pin care twice a day and daily dressing changes to left lower extremity Continue elevation and ice to decrease swelling Anticipate swelling to be improved for surgery on Thursday for tibial pilon plan for surgery today with dr Brownlee for left baldevon Nikhil Manuel/Hebrew Teacher BRANDI Sep 08, 2017 06:28
[2017-09-08 08:00] VITALS: BP 142/70; PULSE 90; RESP 18; TEMP 98.3; O2SAT 97
[2017-09-08 08:01] VITALS: O2SAT 97
[2017-09-08] MEDS: ACETAMINOPHEN/HYDROcodone 325 MG/10 MG TAB PO PRN ×2 (08:15→22:02)
[2017-09-08] MEDS: DILTIAZEM-CD 180 MG CAP ER PO SCH (08:16)
[2017-09-08] MEDS: DOCUSATE SODIUM 50 MG/SENNA 8.6 MG TAB PO SCH ×2 (09:00→20:46)
[2017-09-08] MEDS: GABAPENTIN 400 MG CAP PO SCH ×3 (09:00→18:00)
[2017-09-08] MEDS: BACITRACIN TOP OINT 15 GM TUBE TOP SCH ×2 (09:00→20:46)
[2017-09-08] MEDS: SERTRALINE HCL 100 MG TAB PO SCH (09:00)
[2017-09-08] MEDS: POLYETHYLENE GLYCOL 17 GM PKG PO SCH (09:00)
[2017-09-08] MEDS: CHOLECALCIFEROL (VIT D3) 1000 UNIT TAB PO SCH (09:00)
[2017-09-08] MEDS: FAMOTIDINE 20 MG TAB PO SCH ×2 (09:00→20:46)
[2017-09-08] MEDS: LISINOPRIL 20 MG TAB PO SCH (09:00)
[2017-09-08] MEDS ORDERED: ePHEDrine/NS 25 MG/5 ML SYRINGE IV ONE (12:00)
[2017-09-08] MEDS ORDERED: PROPOFOL 200 MG/20 ML AMP IV ONE (12:00)
[2017-09-08] MEDS ORDERED: LABETALOL HCL 100 MG/20 ML VIAL IV ONE (12:00)
[2017-09-08] MEDS ORDERED: DEXAMETHASONE SOD PHOS 4 MG/ML VIAL IV ONE (12:00)
[2017-09-08] MEDS ORDERED: LIDOCAINE HCL 1% PF 5 ML SYRINGE OTHER ONE (12:00)
[2017-09-08] MEDS ORDERED: PHENYLEPH/NS 1000 MCG/10 ML SYR IV ONE (12:00)
[2017-09-08] MEDS ORDERED: KETOROLAC TROMETHAMINE 30 MG/ML (IVP) VIAL IV PUSH ONE (12:00)
[2017-09-08] MEDS ORDERED: LACTATED RINGER'S 1000 ML INJ 1,000 ML IV ONE (12:00)
--- NOTE | 2017-09-08 12:40 | HHI.PR ---
Subjective Subjective Notes PTD: 15 1130: IN OR 1430: IN OR 1740: In OR Objective Vitals/I&O Vital Signs Date Time Temp Pulse Resp B/P (MAP) Pulse Ox O2 Delivery O2 Flow Rate FiO2 09/08/17 09:15 18 09/08/17 08:01 97 21 09/08/17 08:00 98.3 90 142/70 (94) 09/05/17 12:02 Room Air Labs Laboratory Tests Test 09/07/17 12:54 White Blood Count 13.7 Red Blood Count 3.56 Hemoglobin 10.8 Hematocrit 32.8 Mean Corpuscular Volume 92.2 Mean Corpuscular Hemoglobin 30.3 Mean Corpuscular Hemoglobin Concent 32.9 Red Cell Distribution Width 13.5 Platelet Count 753 Mean Platelet Volume 7.2 Neutrophils (%) (Auto) 78.7 Lymphocytes (%) (Auto) 13.7 Monocytes (%) (Auto) 5.1 Eosinophils (%) (Auto) 1.6 Basophils (%) (Auto) 0.9 Neutrophils # (Auto) 10.8 Lymphocytes # (Auto) 1.9 Monocytes # (Auto) 0.7 Eosinophils # (Auto) 0.2 Basophils # (Auto) 0.1 CBC Comment DIFF FINAL Differential Comment Blood Urea Nitrogen 23 Creatinine 1.04 Random Glucose 109 Calcium Level 9.2 Sodium Level 138 Potassium Level 4.3 Chloride Level 100 Carbon Dioxide Level 30.6 Anion Gap 7 Estimat Glomerular Filtration Rate 74 Narrative Exam In OR A/P Problem List: (1) Fall from ladder ICD Codes: W11.XXXA - Fall on and from ladder, initial encounter Status: Acute (2) Fracture of right tibial plateau ICD Codes: S82.141A - Displaced bicondylar fracture of right tibia, initial encounter for closed fracture Status: Acute (3) Open fracture of tibia and fibula ICD Codes: S82.209B - Unspecified fracture of shaft of unspecified tibia, initial encounter for open fracture type I or II; S82.409B - Unspecified fracture of shaft of unspecified fibula, initial encounter for open fracture type I or II Status: Acute Assessment and Plan [place]: This is a 52-year-old male who sustained a fall. He fell off a ladder approximately 8 feet landing on both of his feet. No LOC. INJURIES: Open LEFT tib fib fx RIGHT tibial plateau fx PMHx: Depression, HTN Procedures: 08/24: I&D w/ Closed reduction, LEFT distal tibia/fibula pilon fx w/ ex-fix. Closed reduction RIGHT tibial plateau fx w/ ex-fix . 08/28: ORIF RIGHT proximal tibia w/ removal of ex-fix 09/08: Return to OR Consults: Orthopedics. Case management. Diet: Regular diet. Tolerating po diet. Encourage good po intake with each meal. Pulmonary: Encourage good pulmonary toileting. IS at bedside and pt encouraged to use. Rationale for use explained to patient, and verbalized understanding. PAIN Management: [place] 10 mg q4h. Dilaudid 1 mg q 4h. Robaxin 500 mg q 8h. Neurontin 300 mg TID. Fentanyl patch 50 MCG. Sleep: Trazodone 50 mg HS Activity: OOB. PT and OT ordered. (NWB BLE) GI prophylaxis: Pepcid 20 mg BID po Bowel regimen: Colace. MOM. . Lactulose. LBM: 09/04. DVT prophylaxis: Mechanical VTE with SCDs contraindicated due to bilateral ex- fix in place. Chemical management with Lovenox 110 mg BID. DC Planning: Case management consulted for assistance with final discharge disposition. Patient will most likely need a stay at rehabilitation once surgeries are completed. Pt has been accepted at [facility]. Emotional support provided to patient and family at bedside and plan of care discussed. Discussed with RN at bedside. Discussed pt condition and plan of care with collaborating trauma surgeon. Patient is hemodynamically stable and being managed on the med/surg floor. The trauma team will round each day, and evaluate plan of care on a daily basis. Trauma to the lower extremities Open LEFT tib fib fx RIGHT tibial plateau fx Orthopedics consulted and assisting in management and care 08/24: I&D w/ Closed reduction, LEFT distal tibia/fibula pilon fx w/ ex-fix. Closed reduction RIGHT tibial plateau fx w/ ex-fix 08/28: ORIF RIGHT proximal tibia w/ removal of ex-fix 09/08: Return to OR Supportive care Pain management Ice and elevate PT and OT ordered NWB BLE Dressings per orthopedics Pin care per orthopedic Antibiotics per orthopedics DVT prophylaxis Heparin drip Hypoxia Right lower extremity posterior tibial vein DVT Pulmonary embolism right middle lobe/right lower lobe O2 as needed Supportive care Aggressive pulmonary toileting Low grade fever CTA shows pulmonary emboli within the right middle and lower lobe pulmonary artery branches US bilateral lower extremities - right lower extremity posterior tibial vein DVT Lovenox 110 mg BID Attending Statement The exam, history, and the medical decision-making described in the above note were completed with the assistance of the mid-level provider. I reviewed and agree with the findings presented. I attest that I had a [id number] encounter with the patient on the same day, and personally performed and documented my assessment and findings in the medical record. Problem Qualifiers (1) Fall from ladder: Qualified Codes: W11.XXXA - Fall on and from ladder, initial encounter (2) Fracture of right tibial plateau: (3) Open fracture of tibia and fibula: Vicki Cary Sep 08, 2017 12:40 Mir Hines MD Sep 09, 2017 02:15
[2017-09-08] MEDS ORDERED: SODIUM CHLOR 0.9% 250 ML INJ 250 ML ONE (15:28)
[2017-09-08] MEDS ORDERED: ceFAZolin INJ 1,000 MG VIAL ONE (15:28)
[2017-09-08] MEDS ORDERED: GENTAMICIN SULFATE 80 MG/2 ML VIAL ONE (15:28)
[2017-09-08] MEDS ORDERED: VANCOMYCIN HCL 1000 MG VIAL ONE (15:28)
[2017-09-08] MEDS ORDERED: ACETAMINOPHEN 1000 MG/100 ML 100 ML IV ONE (17:37)
[2017-09-08] MEDS ORDERED: DEXAMETHASONE SOD PHOS 4 MG/ML VIAL ONE (18:28)
[2017-09-08] MEDS ORDERED: Post-op Orders (for Pharmacy) XX ONE (18:45)
--- NOTE | 2017-09-08 18:45 | PD.OP ---
cc: Davon Brownlee MD Operative Report Date of Surgery: Sep 08, 2017 Preoperative Diagnosis: Comminuted intra-articular left distal tibia and fibula fractures Postoperative Diagnosis: Procedure: Removal of external fixation, open reduction internal fixation left fibula, open reduction internal fixation left distal tibia pilon fracture Anesthesia: Gen. Surgeon: Davon Brownlee Resource Specialist Teacher(s): Nikhil Manuel PA-C The surgical procedure was assisted by my physician metal moulder's assistant. My P.A. presence was necessary throughout this case for the manipulation and positioning of the surgical extremity. My P.A. was assisting me throughout the duration of this procedure. The skill set of a physician metal moulder's assistant was medically necessary to complete this procedure. During the surgical case the surgical assistant certified was working at the back table and the physician metal moulder's assistant was directly assisting me. Operation and Findings: Informed consent was obtained for treatment of his left distal tibia fractures. Soft tissue was evaluated preoperatively and found to be suitable for surgery. Patient was brought to the operating placed on operating room table. Patient was given IV sedation and general anesthesia. Timeout procedure was performed, and IV antibiotics were given prior to procedure. Procedure began with removal of a portion of the external fixator. Clamps were loosened. Clamps and bars were removed. The metatarsal pins were also removed. The tibial and calcaneal pins were left in place. The left leg was now prepped with alcohol followed by Hibiclens and draped usual sterile fashion. Because of patient's large traumatic laceration over the anterior lateral tibia , a standard anterior approach could not be utilized. A 4 inch incision was made over the posterior medial aspect of the tibia. A full thickness flap was now elevated. The medial distal tibia was now exposed. The articular surface was now evaluated. Attention was now turned towards reduction. The articular surface was in 3 major fragments. There was severe comminution of the metaphyseal region. A minimally invasive approach was utilized to attempt to avoid further skin necrosis around the traumatic wound. At this point attention was turned to the fibula. A 1 cement incision was made distal to the tibia. A 3.5 mm drill was used to create a hole in the distal end of the fibula. Using the Ledesma rods, and appropriate ledesma fadi was selected. The fibula was held in a reduced position. The fadi was placed in a retrograde fashion across the fracture site. There was mild comminution of the fracture. The fracture keyed into excellent alignment. Using a bone tamp the Ledesma fadi was fully seated. Multiplanar fluoroscopy confirmed appropriate hardware placement. Attention was now turned back to the tibia. There were multiple metaphyseal fragments. The 3 articular surface fragments were reduced first. Each of these fragments was manipulated to achieve excellent reduction. Multiplanar fluoroscopy confirmed well aligned fractures. Fracture tenaculums were used to reduce fractures. Multiple K wires were used to hold provisional fixation. Fluoroscopy confirmed excellent alignment of fractures. Multiple 3.5 cortical lag screws were placed from anterior to posterior. Good compression was obtained. A Synthes medial distal tibial plate was selected. Plate was provisionally held to bone with K wires. 2.7 cortical screws and 3.5 cortical screws were used to compress plate to bone. Multiple screws were placed into the shaft. Multiple 2.7 locking screws were placed into the distal segment. All screws were predrilled and premeasured for appropriate lengths. Final fluoroscopy revealed well aligned fracture with well-placed hardware. The wound was now thoroughly irrigated. subcutaneous tissues closed with 3-0 Vicryl and skin was closed with 3-0 nylon. At this point attention was turned revision of the external fixation. 2 small incisions were made. Pins were placed back in the first and fifth metatarsals. An external fixator construct was now created. Very gentle traction was applied across the ankle. External fixator was tightened. The external fixator was placed to help prevent any displacement or impaction of the articular surface fragments which were relatively unstable. Needle and sponge counts were correct. Sterile dressings were applied. Patient was transferred to recovery room in stable condition. Davon Brownlee MD Sep 08, 2017 18:45
[2017-09-08] MEDS ORDERED: *MEPERIDINE 25 MG INJ VIAL PERIprocedural Use ONLY ONE (19:16)
[2017-09-08] MEDS ORDERED: MIDAZOLAM HCL 2 MG/2 ML VIAL ONE (19:21)
[2017-09-08] MEDS ORDERED: *morphine SULFATE 8 MG/ML PERIprocedure ONLY ONE ×2 (19:32→19:44)
--- NOTE | 2017-09-08 19:46 | RADRPT ---
EXAM DATE/TIME: 09/08/2017 18:21 [facility] COMPARISON: No previous studies available for comparison. INDICATIONS : ORIF of the left ankle. MEDICAL HISTORY : None. SURGICAL HISTORY : None. ENCOUNTER: Subsequent ACUITY: 2 weeks PAIN SCORE: Non-responsive. LOCATION: Left ankle FINDINGS: There is plate and screw fixation of the distal tibia across a severely comminuted fracture. Also fadi fixation of the fibula. Alignment at the ankle joints. CONCLUSION: 1. Fixation as above. Freddy De La Paz MD on September 08, 2017 at 19:43 Board Certified Radiologist. This report was verified electronically.
[2017-09-08] MEDS ORDERED: DO NOT ADM ANY ANTICOAGULANT DRUGS PRN (20:00)
[2017-09-08] MEDS: LACTATED RINGER'S 1000 ML INJ 1,000 ML IV SCH (20:00)
[2017-09-08 20:40] VITALS: BP 129/60; PULSE 91; RESP 18; TEMP 98.3; O2SAT 93
[2017-09-08] MEDS: HYDROmorphone HCL PF 2 MG/ML VIAL IV PUSH PRN (20:41)
[2017-09-08] MEDS: traZODone HCL 50 MG TAB PO SCH (20:46)
[2017-09-08] MEDS: KETOROLAC TROMETHAMINE 30 MG/ML (IVP) VIAL IVP SCH (22:02)
[2017-09-08 23:50] VITALS: BP 145/71; PULSE 99; RESP 18; TEMP 98.9; O2SAT 98
[2017-09-09] MEDS ORDERED: ceFAZolin 2 GM PREMIX 50 ML IV SCH
[2017-09-09] MEDS: HYDROmorphone HCL PF 2 MG/ML VIAL IV PUSH PRN (00:35)
[2017-09-09] MEDS: CEFAZOLIN INJ 2,000 MG in SODIUM CHLORIDE 0.9% INJ 100 ML IV SCH ×3 (00:35→16:30)
[2017-09-09] MEDS: ACETAMINOPHEN/HYDROcodone 325 MG/10 MG TAB PO PRN ×3 (02:50→09:57)
[2017-09-09 04:16] LABS: AUTOMATED NEUTROPHIL # 14.5 TH/MM3 (1.8-7.7); BASOPHIL # 0.1 TH/MM3 (0-0.2); BASOPHIL % 0.5 % (0.0-2.0); HEMATOCRIT 30.6 % (39.0-51.0); HEMOGLOBIN 10.2 GM/DL (13.0-17.0); LYMPH % 4.9 % (9.0-44.0); LYMPHOCYTE # 0.8 TH/MM3 (1.0-4.8); MEAN CORPUSCULAR HEMOGLOBIN 30.5 PG (27.0-34.0); MEAN CORPUSCULAR HGB CONC 33.2 % (32.0-36.0); MEAN PLATELET VOLUME 7.2 FL (7.0-11.0); MONO % 2.7 % (0.0-8.0); MONOCYTE # 0.4 TH/MM3 (0-0.9); NEUT % 91.9 % (16.0-70.0); PLATELET COUNT 781 TH/MM3 (150-450); RED BLOOD COUNT 3.33 MIL/MM3 (4.50-5.90); RED CELL DISTRIBUTION WIDTH 13.5 % (11.6-17.2); WHITE BLOOD COUNT 15.7 TH/MM3 (4.0-11.0)
[2017-09-09 04:30] VITALS: BP 126/62; PULSE 100; RESP 18; TEMP 98.1; O2SAT 95
[2017-09-09] MEDS: VANCOMYCIN INJ 1,000 MG in SODIUM CHLOR 0.9% 250 ML INJ 250 ML IV SCH ×2 (04:30→16:29)
[2017-09-09 04:35] LABS: BICARBONATE 25.3 MEQ/L (21.0-32.0); CALCIUM 8.9 MG/DL (8.5-10.1); CREATININE 1.41 MG/DL (0.60-1.30)
[2017-09-09] MEDS: LACTATED RINGER'S 1000 ML INJ 1,000 ML IV SCH ×2 (04:42→16:00)
[2017-09-09] MEDS: KETOROLAC TROMETHAMINE 30 MG/ML (IVP) VIAL IVP SCH ×3 (06:00→21:12)
[2017-09-09] MEDS: METHOCARBAMOL 500 MG TAB PO SCH (06:40)
[2017-09-09 08:00] VITALS: BP 139/68; PULSE 101; RESP 18; TEMP 98.7; O2SAT 98
[2017-09-09] MEDS ORDERED: MAGNESIUM CITRATE SOLN 300 ML BTL PO ONE (08:00)
[2017-09-09] MEDS ORDERED: ENOXAPARIN SODIUM 40 MG/0.4 ML SYRINGE SQ SCH (08:00)
[2017-09-09] MEDS: FAMOTIDINE 20 MG TAB PO SCH ×2 (08:38→21:11)
[2017-09-09] MEDS: GABAPENTIN 400 MG CAP PO SCH ×3 (08:38→18:02)
[2017-09-09] MEDS: CHOLECALCIFEROL (VIT D3) 1000 UNIT TAB PO SCH (08:38)
[2017-09-09] MEDS: CALCIUM/VITAMIN D 250 MG/125 U TAB PO SCH ×3 (08:38→18:02)
[2017-09-09] MEDS: DOCUSATE SODIUM 50 MG/SENNA 8.6 MG TAB PO SCH ×2 (08:39→21:00)
[2017-09-09] MEDS: LISINOPRIL 20 MG TAB PO SCH (08:40)
[2017-09-09] MEDS: POLYETHYLENE GLYCOL 17 GM PKG PO SCH (08:40)
[2017-09-09] MEDS: SERTRALINE HCL 100 MG TAB PO SCH (08:40)
[2017-09-09] MEDS: DILTIAZEM-CD 180 MG CAP ER PO SCH (08:40)
--- NOTE | 2017-09-09 08:43 | PD.ORT.PN ---
Subjective Subjective Remarks Pain is controlled but did have some difficulty Objective Vitals Vital Signs Date Time Temp Pulse Resp B/P (MAP) Pulse Ox O2 Delivery O2 Flow Rate FiO2 09/09/17 04:30 98.1 100 18 126/62 (83) 95 09/08/17 23:50 98.9 99 18 145/71 (95) 98 09/08/17 20:40 98.3 91 18 129/60 (83) 93 09/08/17 20:10 88 16 95 Nasal Cannula 3 09/08/17 20:00 97.6 86 16 142/75 (97) 94 Nasal Cannula 3 09/08/17 19:49 15 09/08/17 19:49 15 09/08/17 19:45 87 16 154/78 (103) 93 Nasal Cannula 3 09/08/17 19:37 15 09/08/17 19:30 88 16 169/80 (109) 92 Nasal Cannula 3 09/08/17 19:15 98 16 174/87 (116) 98 Simple Mask 6 09/08/17 19:10 98.1 106 18 180/99 (126) 96 Simple Mask 6 09/08/17 09:15 18 I/O 09/08/17 09/08/17 09/08/17 09/09/17 09/09/17 09/09/17 07:00 15:00 23:00 07:00 15:00 23:00 Intake Total 600 ml 720 ml Output Total 350 ml 75 ml 1400 ml Balance -350 ml 525 ml -680 ml Intake Oral 720 ml Other 600 ml Output Urine Total 350 ml 1400 ml Estimated Blood Loss 75 ml # Voids 2 0 # Bowel Movements 0 0 Result Diagram: 09/09/17 0330 09/09/17 0330 Imaging Last 24 hours Impressions Tibia/Fibula X-Ray 08/24/17 0859 Signed Impressions: Service Date/Time: Thursday, August 24, 2017 09:42 - CONCLUSION: 1. Comminuted fracture of the proximal right tibia, as above. Jay Jay Diamond MD Tibia/Fibula X-Ray 08/24/17 0859 Signed Impressions: Service Date/Time: Thursday, August 24, 2017 09:17 - CONCLUSION: 1. Severely comminuted fracture involving the distal tibia the distal tibia with essentially shattered. The ankle mortise itself is intact. 2. Angulated fracture involving the distal fibula. 3. There are several bone fragments adjacent to the fibular head is below the knee consistent with mildly comminuted fracture of the proximal fibular head as well. Jaime Toledo MD Knee X-Ray 08/24/17 0859 Signed Impressions: Service Date/Time: Thursday, August 24, 2017 09:17 - CONCLUSION: 1. Comminuted, mildly displaced fracture of the fibular head. Jaime Toledo MD Knee X-Ray 08/24/1759 Signed Impressions: Service Date/Time: Thursday, August 24, 2017 09:42 - CONCLUSION: 1. Comminuted, mildly displaced fracture of the proximal right tibia. 2. The tibial plateaus are intact. There is however it advanced tricompartmental osteoarthritis in the right knee. Jaime Toledo MD Foot X-Ray 08/24/17 0859 Signed Impressions: Service Date/Time: Thursday, August 24, 2017 09:28 - CONCLUSION: 1. No acute fracture or dislocation in the foot. Jay Jay Diamond MD Objective Remarks LLE: Splint in place. Clean dry and intact. Intact sensation in all toes. Good capillary refills. Movement of all toes RLE: Clean dry dressings intact. Mild swelling over lower leg. Intact sensation distally with active dorsiflexion plantar flexion of foot Assessment & Plan Assessment and Plan 1) Left Tibial Pilon Fx s/p ORIF with removal of external fixator POD 1 2) Right Tibial Plateau Fx ORIF POD 11 Nonweightbearing right lower extremity PT for passive range of motion of knee and passive and active range of motion of ankle Daily dressing changes to right lower extremity Maintain splint- clean and Dry Continue elevation and ice to decrease swelling Nonweightbearing left lower extremity Lovenox Case management for discharge planning to rehabilitation Possible discharge tomorrow or Thursday Issac Che Jr. Sep 09, 2017 08:43
[2017-09-09] MEDS ORDERED: WHEEMIS3 (08:47)
[2017-09-09] MEDS: BACITRACIN TOP OINT 15 GM TUBE TOP SCH ×2 (08:50→21:00)
--- NOTE | 2017-09-09 11:12 | HHI.PR ---
Subjective Subjective Notes PTD: 16 Pt lying in bed. Extremely painful. "It's [left leg] just throbbing. My other leg is just fine. " Objective Vitals/I&O Vital Signs Date Time Temp Pulse Resp B/P (MAP) Pulse Ox O2 Delivery O2 Flow Rate FiO2 09/09/17 10:57 18 09/09/17 08:00 98.7 101 139/68 (91) 98 09/08/17 20:10 Nasal Cannula 3 09/08/17 08:01 21 Labs Laboratory Tests Test 09/09/17 03:30 White Blood Count 15.7 Red Blood Count 3.33 Hemoglobin 10.2 Hematocrit 30.6 Mean Corpuscular Volume 92.0 Mean Corpuscular Hemoglobin 30.5 Mean Corpuscular Hemoglobin Concent 33.2 Red Cell Distribution Width 13.5 Platelet Count 781 Mean Platelet Volume 7.2 Neutrophils (%) (Auto) 91.9 Lymphocytes (%) (Auto) 4.9 Monocytes (%) (Auto) 2.7 Eosinophils (%) (Auto) 0.0 Basophils (%) (Auto) 0.5 Neutrophils # (Auto) 14.5 Lymphocytes # (Auto) 0.8 Monocytes # (Auto) 0.4 Eosinophils # (Auto) 0.0 Basophils # (Auto) 0.1 CBC Comment DIFF FINAL Differential Comment Blood Urea Nitrogen 31 Creatinine 1.41 Random Glucose 181 Calcium Level 8.9 Sodium Level 135 Potassium Level 4.5 Chloride Level 100 Carbon Dioxide Level 25.3 Anion Gap 10 Estimat Glomerular Filtration Rate 52 Radiology Last 48 hours Impressions Ankle X-Ray 09/08/17 0000 Signed Impressions: Service Date/Time: Friday, September 08, 2017 18:21 - CONCLUSION: 1. Fixation as above. Freddy De La Paz MD Narrative Exam GENERAL: This is a 52-year-old male lying in bed. Very painful. SKIN: Warm and dry. HEAD: Atraumatic. Normocephalic. EYES: PERRLA ENT: No nasal bleeding or discharge. Mucous membranes pink and moist. NECK: Trachea midline. No JVD. CARDIOVASCULAR: Regular rate and rhythm. RESPIRATORY: No accessory muscle use. Lungs are clear to auscultation. Breath sounds equal bilaterally. No distress or dyspnea. GASTROINTESTINAL: BS + x 4 quads. Abdomen soft, non-tender, nondistended. MUSCULOSKELETAL: Extremities without cyanosis, or edema. LEFT lower extremity splint in place and wrapped in Dino bandage. Right lower extremity wrapped in Dino bandage. + peripheral pulses x 4 extremities. Warm with good capillary refill and sensation. MAEW. NEUROLOGICAL: Awake and alert. Normal speech and pattern. A/P Problem List: (1) Fall from ladder ICD Codes: W11.XXXA - Fall on and from ladder, initial encounter Status: Acute (2) Fracture of right tibial plateau ICD Codes: S82.141A - Displaced bicondylar fracture of right tibia, initial encounter for closed fracture Status: Acute (3) Open fracture of tibia and fibula ICD Codes: S82.209B - Unspecified fracture of shaft of unspecified tibia, initial encounter for open fracture type I or II; S82.409B - Unspecified fracture of shaft of unspecified fibula, initial encounter for open fracture type I or II Status: Acute Assessment and Plan AMBLER: This is a 52-year-old male who sustained a fall. He fell off a ladder approximately 8 feet landing on both of his feet. No LOC. INJURIES: Open LEFT tib fib fx RIGHT tibial plateau fx PMHx: Depression, HTN Procedures: 08/24: I&D w/ Closed reduction, LEFT distal tibia/fibula pilon fx w/ ex-fix. Closed reduction RIGHT tibial plateau fx w/ ex-fix . 08/28: ORIF RIGHT proximal tibia w/ removal of ex-fix 09/08: OR for left ex-fix removal. ORIF LEFT fibula. ORIF LEFT distal pilon fx Consults: Orthopedics. Case management. Diet: Regular diet. Tolerating po diet. Encourage good po intake with each meal. Pulmonary: Encourage good pulmonary toileting. IS at bedside and pt encouraged to use. Rationale for use explained to patient, and verbalized understanding. PAIN Management: DC [place]. Change to Dilaudid 2-4 mg po q 3h to manage pain. DC Robaxin. Change to Valium 2 mg q 8h. Neurontin 300 mg TID. Fentanyl patch 50 MCG. Sleep: Trazodone 50 mg HS. Pt is still not sleeping. Add Melatonin 5 mg q HS PRN. Activity: OOB. PT and OT ordered. (NWB BLE) GI prophylaxis: Pepcid 20 mg BID po Bowel regimen: Colace. MOM. . Lactulose. LBM: 09/04. Magnesium Citrate x 1 dose today. DVT prophylaxis: Mechanical VTE with SCDs Chemical management with Lovenox 110 mg BID. DC Planning: Case management consulted for assistance with final discharge disposition. Patient will most likely need a stay at rehabilitation once surgeries are completed. Pt has been accepted at [facility] and plan for DC in 1-2 days. Emotional support provided to patient and family at bedside and plan of care discussed. Discussed with RN at bedside. Discussed pt condition and plan of care with collaborating trauma surgeon. Patient is hemodynamically stable and being managed on the med/surg floor. The trauma team will round each day, and evaluate plan of care on a daily basis. Trauma to the lower extremities Open LEFT tib fib fx RIGHT tibial plateau fx Orthopedics consulted and assisting in management and care 08/24: I&D w/ Closed reduction, LEFT distal tibia/fibula pilon fx w/ ex-fix. Closed reduction RIGHT tibial plateau fx w/ ex-fix 08/28: ORIF RIGHT proximal tibia w/ removal of ex-fix 09/08: OR for left ex-fix removal. ORIF LEFT fibula. ORIF LEFT distal pilon fx Supportive care Pain management Ice and elevate PT and OT ordered NWB BLE Dressings per orthopedics Pin care per orthopedic Antibiotics per orthopedics DVT prophylaxis Lovenox gtt Hypoxia Right lower extremity posterior tibial vein DVT Pulmonary embolism right middle lobe/right lower lobe O2 as needed Supportive care Aggressive pulmonary toileting Low grade fever CTA shows pulmonary emboli within the right middle and lower lobe pulmonary artery branches US bilateral lower extremities - right lower extremity posterior tibial vein DVT Lovenox 110 mg BID Attending Statement The exam, history, and the medical decision-making described in the above note were completed with the assistance of the mid-level provider. I reviewed and agree with the findings presented. I attest that I had a [id number] encounter with the patient on the same day, and personally performed and documented my assessment and findings in the medical record. Problem Qualifiers (1) Fall from ladder: Qualified Codes: W11.XXXA - Fall on and from ladder, initial encounter (2) Fracture of right tibial plateau: (3) Open fracture of tibia and fibula: Vicki Cary Sep 09, 2017 11:12 Mir Hines MD Sep 09, 2017 19:10
[2017-09-09 12:00] VITALS: BP 123/58; PULSE 101; RESP 17; TEMP 98; O2SAT 93
[2017-09-09] MEDS ORDERED: REMOVE OLD DURAGESIC (FENTANYL) PATCH T-DERMAL SCH (12:45)
[2017-09-09] MEDS ORDERED: HYDROmorphone HCL 2 MG TAB PO PRN (13:00)
[2017-09-09] MEDS ORDERED: fentaNYL 50 MCG/HR PATCH T-DERMAL SCH (13:00)
[2017-09-09] MEDS: HYDROmorphone HCL 4 MG TAB PO PRN ×2 (13:02→16:29)
[2017-09-09] MEDS: DIAZEPAM 2 MG TAB PO SCH ×2 (13:02→21:11)
[2017-09-09 16:28] VITALS: BP 125/72; PULSE 95; RESP 18; TEMP 98.4; O2SAT 95
[2017-09-09] MEDS: ENOXAPARIN SODIUM 120 MG/0.8 ML SYRINGE SQ SCH (18:04)
[2017-09-09 20:00] VITALS: BP 160/68; PULSE 99; RESP 18; TEMP 98.1; O2SAT 94
[2017-09-09] MEDS ORDERED: MELATONIN 5 MG TAB PO PRN (21:00)
[2017-09-09] MEDS: traZODone HCL 50 MG TAB PO SCH (21:11)
[2017-09-10] VITALS: BP 100/59; PULSE 103; RESP 20; TEMP 97.9; O2SAT 96
[2017-09-10] MEDS: CEFAZOLIN INJ 2,000 MG in SODIUM CHLORIDE 0.9% INJ 100 ML IV SCH ×3 (00:07→15:06)
[2017-09-10] MEDS: LACTATED RINGER'S 1000 ML INJ 1,000 ML IV SCH ×2 (00:36→12:00)
[2017-09-10 04:32] LABS: AUTOMATED NEUTROPHIL # 10.6 TH/MM3 (1.8-7.7); BASOPHIL # 0.1 TH/MM3 (0-0.2); BASOPHIL % 0.7 % (0.0-2.0); EOSINOPHIL # 0.1 TH/MM3 (0-0.4); EOSINOPHIL % 0.9 % (0.0-4.0); HEMATOCRIT 27.3 % (39.0-51.0); HEMOGLOBIN 9.1 GM/DL (13.0-17.0); LYMPHOCYTE # 2.6 TH/MM3 (1.0-4.8); MEAN CELL VOLUME 93.2 FL (80.0-100.0); MEAN CORPUSCULAR HEMOGLOBIN 30.9 PG (27.0-34.0); MEAN CORPUSCULAR HGB CONC 33.1 % (32.0-36.0); MEAN PLATELET VOLUME 7.3 FL (7.0-11.0); MONO % 6.6 % (0.0-8.0); NEUT % 73.8 % (16.0-70.0); PLATELET COUNT 672 TH/MM3 (150-450); RED BLOOD COUNT 2.93 MIL/MM3 (4.50-5.90); RED CELL DISTRIBUTION WIDTH 13.8 % (11.6-17.2); WHITE BLOOD COUNT 14.3 TH/MM3 (4.0-11.0)
[2017-09-10 04:55] LABS: BICARBONATE 29.7 MEQ/L (21.0-32.0); CALCIUM 8.6 MG/DL (8.5-10.1); CREATININE 1.17 MG/DL (0.60-1.30)
[2017-09-10 05:05] VITALS: BP 107/63; PULSE 74; RESP 17; TEMP 96.8; O2SAT 100
[2017-09-10] MEDS: VANCOMYCIN INJ 1,000 MG in SODIUM CHLOR 0.9% 250 ML INJ 250 ML IV SCH (05:09)
[2017-09-10] MEDS: DIAZEPAM 2 MG TAB PO SCH ×2 (05:10→12:57)
[2017-09-10] MEDS: HYDROmorphone HCL 4 MG TAB PO PRN ×4 (05:12→14:22)
[2017-09-10] MEDS: ENOXAPARIN SODIUM 120 MG/0.8 ML SYRINGE SQ SCH (06:00)
--- NOTE | 2017-09-10 06:40 | PD.ORT.PN ---
Subjective Subjective Remarks Pain is controlled Objective Vitals Vital Signs Date Time Temp Pulse Resp B/P (MAP) Pulse Ox O2 Delivery O2 Flow Rate FiO2 09/10/17 05:05 96.8 74 17 107/63 (78) 100 09/10/17 00:00 97.9 103 20 100/59 (73) 96 09/09/17 20:00 98.1 99 18 160/68 (98) 94 09/09/17 17:29 18 09/09/17 16:28 98.4 95 18 125/72 (89) 95 09/09/17 15:24 18 09/09/17 15:24 18 09/09/17 12:00 98.0 101 17 123/58 (79) 93 09/09/17 10:57 18 09/09/17 08:00 98.7 101 18 139/68 (91) 98 I/O 09/09/17 09/09/17 09/09/17 09/10/17 09/10/17 09/10/17 07:00 15:00 23:00 07:00 15:00 23:00 Intake Total 720 ml 1100 ml Output Total 1400 ml 700 ml Balance -680 ml 400 ml Intake Oral 720 ml 1100 ml Output Urine Total 1400 ml 700 ml # Bowel Movements 0 1 Result Diagram: 09/10/17 0339 09/10/17 0339 Imaging Last 24 hours Impressions Tibia/Fibula X-Ray 08/24/17 0859 Signed Impressions: Service Date/Time: Thursday, August 24, 2017 09:42 - CONCLUSION: 1. Comminuted fracture of the proximal right tibia, as above. Jay Jay Diamond MD Tibia/Fibula X-Ray 08/24/17 0859 Signed Impressions: Service Date/Time: Thursday, August 24, 2017 09:17 - CONCLUSION: 1. Severely comminuted fracture involving the distal tibia the distal tibia with essentially shattered. The ankle mortise itself is intact. 2. Angulated fracture involving the distal fibula. 3. There are several bone fragments adjacent to the fibular head is below the knee consistent with mildly comminuted fracture of the proximal fibular head as well. Jaime Toledo MD Knee X-Ray 08/24/17 0859 Signed Impressions: Service Date/Time: Thursday, August 24, 2017 09:17 - CONCLUSION: 1. Comminuted, mildly displaced fracture of the fibular head. Jaime Toledo MD Knee X-Ray 08/24/17 0859 Signed Impressions: Service Date/Time: Thursday, August 24, 2017 09:42 - CONCLUSION: 1. Comminuted, mildly displaced fracture of the proximal right tibia. 2. The tibial plateaus are intact. There is however it advanced tricompartmental osteoarthritis in the right knee. Jaime Toledo MD Foot X-Ray 08/24/1759 Signed Impressions: Service Date/Time: Thursday, August 24, 2017 09:28 - CONCLUSION: 1. No acute fracture or dislocation in the foot. Jay Jay Diamond MD Objective Remarks LLE: Splint in place. Clean dry and intact. Intact sensation in all toes. Good capillary refills. Movement of all toes RLE: Clean dry dressings intact. Mild swelling over lower leg. Intact sensation distally with active dorsiflexion plantar flexion of foot Assessment & Plan Assessment and Plan 1) Left Tibial Pilon Fx s/p ORIF with removal of external fixator POD 2 2) Right Tibial Plateau Fx ORIF POD 12 Nonweightbearing right lower extremity PT for passive range of motion of knee and passive and active range of motion of ankle Daily dressing changes to right lower extremity Maintain splint- clean and Dry Continue elevation and ice to decrease swelling Nonweightbearing left lower extremity Lovenox Case management for discharge planning to rehabilitation Possible discharge tomorrow or Thursday Issac Che Jr. Sep 10, 2017 06:40
[2017-09-10] MEDS ORDERED: PERI PO (07:22)
[2017-09-10] MEDS ORDERED: CALC250 PO (07:22)
[2017-09-10] MEDS ORDERED: DIAZ2 PO (07:22)
[2017-09-10] MEDS ORDERED: POLY17S PO (07:22)
[2017-09-10] MEDS ORDERED: FAMO20TA2 PO (07:22)
[2017-09-10] MEDS ORDERED: TRAZ50TA12 PO (07:22)
[2017-09-10] MEDS ORDERED: MELA5 PO (07:22)
[2017-09-10] MEDS ORDERED: DILA2TAB4 PO (07:22)
[2017-09-10] MEDS ORDERED: DILA4TAB10 PO (07:22)
[2017-09-10] MEDS ORDERED: NEUR400C PO (07:22)
[2017-09-10] MEDS ORDERED: ENOX120P SQ (07:22)
[2017-09-10 08:00] VITALS: BP 146/81; PULSE 84; RESP 18; TEMP 97.8; O2SAT 93
[2017-09-10] MEDS: GABAPENTIN 400 MG CAP PO SCH ×2 (08:14→12:57)
[2017-09-10] MEDS: DOCUSATE SODIUM 50 MG/SENNA 8.6 MG TAB PO SCH (08:15)
[2017-09-10] MEDS: LISINOPRIL 20 MG TAB PO SCH (08:15)
[2017-09-10] MEDS: SERTRALINE HCL 100 MG TAB PO SCH (08:15)
[2017-09-10] MEDS: CALCIUM/VITAMIN D 250 MG/125 U TAB PO SCH ×2 (08:15→12:57)
[2017-09-10] MEDS: FAMOTIDINE 20 MG TAB PO SCH (08:15)
[2017-09-10] MEDS: DILTIAZEM-CD 180 MG CAP ER PO SCH (08:15)
[2017-09-10] MEDS: CHOLECALCIFEROL (VIT D3) 1000 UNIT TAB PO SCH (08:15)
[2017-09-10] MEDS: POLYETHYLENE GLYCOL 17 GM PKG PO SCH (08:18)
[2017-09-10] MEDS: BACITRACIN TOP OINT 15 GM TUBE TOP SCH (08:23)
--- NOTE | 2017-09-10 11:05 | HHI.PR ---
Subjective Subjective Notes PTD: 17 Patient lying in bed. Left leg elevated on a pillow -ice packs in place. Patient states, "yesterday was good, and last night was good. Now it is bad." "It is excruciating pain down my leg. It is like a lightening bolt." Objective Vitals/I&O Vital Signs Date Time Temp Pulse Resp B/P (MAP) Pulse Ox O2 Delivery O2 Flow Rate FiO2 09/10/17 08:00 97.8 84 18 146/81 (102) 93 09/08/17 20:10 Nasal Cannula 3 09/08/17 08:01 21 Labs Laboratory Tests Test 09/10/17 03:39 White Blood Count 14.3 Red Blood Count 2.93 Hemoglobin 9.1 Hematocrit 27.3 Mean Corpuscular Volume 93.2 Mean Corpuscular Hemoglobin 30.9 Mean Corpuscular Hemoglobin Concent 33.1 Red Cell Distribution Width 13.8 Platelet Count 672 Mean Platelet Volume 7.3 Neutrophils (%) (Auto) 73.8 Lymphocytes (%) (Auto) 18.0 Monocytes (%) (Auto) 6.6 Eosinophils (%) (Auto) 0.9 Basophils (%) (Auto) 0.7 Neutrophils # (Auto) 10.6 Lymphocytes # (Auto) 2.6 Monocytes # (Auto) 1.0 Eosinophils # (Auto) 0.1 Basophils # (Auto) 0.1 CBC Comment DIFF FINAL Differential Comment Blood Urea Nitrogen 37 Creatinine 1.17 Random Glucose 132 Calcium Level 8.6 Sodium Level 140 Potassium Level 4.5 Chloride Level 105 Carbon Dioxide Level 29.7 Anion Gap 5 Estimat Glomerular Filtration Rate 65 Narrative Exam GENERAL: This is a 52-year-old male lying in bed. Very painful. SKIN: Warm and dry. HEAD: Atraumatic. Normocephalic. EYES: PERRLA ENT: No nasal bleeding or discharge. Mucous membranes pink and moist. NECK: Trachea midline. No JVD. CARDIOVASCULAR: Regular rate and rhythm. RESPIRATORY: No accessory muscle use. Lungs are clear to auscultation. Breath sounds equal bilaterally. No distress or dyspnea. GASTROINTESTINAL: BS + x 4 quads. Abdomen soft, non-tender, nondistended. MUSCULOSKELETAL: Extremities without cyanosis, or edema. LEFT lower extremity splint in place and wrapped in Dino bandage. Right lower extremity wrapped in Dino bandage. + peripheral pulses x 4 extremities. Warm with good capillary refill and sensation. MAEW. NEUROLOGICAL: Awake and alert. Normal speech and pattern. A/P Problem List: (1) Fall from ladder ICD Codes: W11.XXXA - Fall on and from ladder, initial encounter Status: Acute (2) Fracture of right tibial plateau ICD Codes: S82.141A - Displaced bicondylar fracture of right tibia, initial encounter for closed fracture Status: Acute (3) Open fracture of tibia and fibula ICD Codes: S82.209B - Unspecified fracture of shaft of unspecified tibia, initial encounter for open fracture type I or II; S82.409B - Unspecified fracture of shaft of unspecified fibula, initial encounter for open fracture type I or II Status: Acute Assessment and Plan [place]: This is a 52-year-old male who sustained a fall. He fell off a ladder approximately 8 feet landing on both of his feet. No LOC. INJURIES: Open LEFT tib fib fx RIGHT tibial plateau fx PMHx: Depression, HTN Procedures: 08/24: I&D w/ Closed reduction, LEFT distal tibia/fibula pilon fx w/ ex-fix. Closed reduction RIGHT tibial plateau fx w/ ex-fix . 08/28: ORIF RIGHT proximal tibia w/ removal of ex-fix 09/08: OR for left ex-fix removal. ORIF LEFT fibula. ORIF LEFT distal pilon fx Consults: Orthopedics. Case management. Patient complains of excruciating pain to his LEFT lower extremity. Contacted orthopedic PA due to concerns of compartment syndrome, and Nikhil went to evaluate patient immediately. He informed me there was no swelling, or signs and symptoms of compartment syndrome. He plans to release the splint for approximately 1 hour so the patient may ice down the leg for comfort, ortho- tech will replace splint. He is adding Toradol 15 mg q 6h for the pain. Diet: Regular diet. Tolerating po diet. Encourage good po intake with each meal. Pulmonary: Encourage good pulmonary toileting. IS at bedside and pt encouraged to use. Rationale for use explained to patient, and verbalized understanding. PAIN Management: Dilaudid 2-4 mg po q 3h to manage pain. Dilaudid 1 mg 1 dose now. Valium 2 mg q 8h. Neurontin 300 mg TID. Fentanyl patch 50 MCG. Sleep: Trazodone 50 mg HS. Melatonin 5 mg q HS PRN. Activity: OOB. PT and OT ordered. (NWB BLE) GI prophylaxis: Pepcid 20 mg BID po Bowel regimen: Colace. MOM. . Lactulose. LBM: 09/09 DVT prophylaxis: Mechanical VTE with SCDs Chemical management with Lovenox 110 mg BID. DC Planning: Case management consulted for assistance with final discharge disposition. Patient warrants rehab placement. Patient has been evaluated and accepted by [facility]. Plan for discharge to [facility] tomorrow. Emotional support provided to patient and family at bedside and plan of care discussed. Discussed with RN at bedside. Discussed pt condition and plan of care with collaborating trauma surgeon. Patient is hemodynamically stable and being managed on the med/surg floor. The trauma team will round each day, and evaluate plan of care on a daily basis. Trauma to the lower extremities Open LEFT tib fib fx RIGHT tibial plateau fx Orthopedics consulted and assisting in management and care 08/24: I&D w/ Closed reduction, LEFT distal tibia/fibula pilon fx w/ ex-fix. Closed reduction RIGHT tibial plateau fx w/ ex-fix 08/28: ORIF RIGHT proximal tibia w/ removal of ex-fix 09/08: OR for left ex-fix removal. ORIF LEFT fibula. ORIF LEFT distal pilon fx Patient complains of excruciating pain to left lower extremity Collaborated with orthopedics PA -he personally evaluated left lower extremity Plan to release splint 1 hour and provide ice for comfort Supportive care Pain management Ice and elevate PT and OT ordered NWB BLE Dressings per orthopedics Antibiotics per orthopedics DVT prophylaxis Lovenox gtt Hypoxia Right lower extremity posterior tibial vein DVT Pulmonary embolism right middle lobe/right lower lobe O2 as needed Supportive care Aggressive pulmonary toileting Low grade fever CTA shows pulmonary emboli within the right middle and lower lobe pulmonary artery branches US bilateral lower extremities - right lower extremity posterior tibial vein DVT Lovenox 110 mg BID Attending Statement The exam, history, and the medical decision-making described in the above note were completed with the assistance of the mid-level provider. I reviewed and agree with the findings presented. I attest that I had a [id number] encounter with the patient on the same day, and personally performed and documented my assessment and findings in the medical record. Problem Qualifiers (1) Fall from ladder: Qualified Codes: W11.XXXA - Fall on and from ladder, initial encounter (2) Fracture of right tibial plateau: (3) Open fracture of tibia and fibula: Vicki Cary Sep 10, 2017 11:05 Mir Hines MD Sep 10, 2017 19:51
[2017-09-10] MEDS ORDERED: HYDROmorphone HCL PF 2 MG/ML VIAL IV PUSH ONE (11:15)
--- NOTE | 2017-09-10 11:22 | PD.ORT.PN ---
Subjective Subjective Remarks POD 13 s/p ORIF right tibial plateau POD 2 s/p ORIF left pilon repots significant increase in pain this morning. reports sharp and stinging pain from panda down to foot. denies numbness or tingling Objective Vitals Vital Signs Date Time Temp Pulse Resp B/P (MAP) Pulse Ox O2 Delivery O2 Flow Rate FiO2 09/10/17 08:00 97.8 84 18 146/81 (102) 93 09/10/17 05:05 96.8 74 17 107/63 (78) 100 09/10/17 00:00 97.9 103 20 100/59 (73) 96 09/09/17 20:00 98.1 99 18 160/68 (98) 94 09/09/17 17:29 18 09/09/17 16:28 98.4 95 18 125/72 (89) 95 09/09/17 15:24 18 09/09/17 15:24 18 09/09/17 12:00 98.0 101 17 123/58 (79) 93 I/O 09/09/17 09/09/17 09/09/17 09/10/17 09/10/17 09/10/17 07:00 15:00 23:00 07:00 15:00 23:00 Intake Total 720 ml 1100 ml 360 ml Output Total 1400 ml 700 ml Balance -680 ml 400 ml 360 ml Intake Oral 720 ml 1100 ml 360 ml Output Urine Total 1400 ml 700 ml # Bowel Movements 0 1 0 Result Diagram: 09/10/17 0339 09/10/17 0339 Imaging Last 24 hours Impressions Tibia/Fibula X-Ray 08/24/17 0859 Signed Impressions: Service Date/Time: Thursday, August 24, 2017 09:42 - CONCLUSION: 1. Comminuted fracture of the proximal right tibia, as above. Jay Jay Diamond MD Tibia/Fibula X-Ray 08/24/17 0859 Signed Impressions: Service Date/Time: Thursday, August 24, 2017 09:17 - CONCLUSION: 1. Severely comminuted fracture involving the distal tibia the distal tibia with essentially shattered. The ankle mortise itself is intact. 2. Angulated fracture involving the distal fibula. 3. There are several bone fragments adjacent to the fibular head is below the knee consistent with mildly comminuted fracture of the proximal fibular head as well. Jaime Toledo MD Knee X-Ray 08/24/17 0859 Signed Impressions: Service Date/Time: Thursday, August 24, 2017 09:17 - CONCLUSION: 1. Comminuted, mildly displaced fracture of the fibular head. Jaime Toledo MD Knee X-Ray 08/24/17 0859 Signed Impressions: Service Date/Time: Thursday, August 24, 2017 09:42 - CONCLUSION: 1. Comminuted, mildly displaced fracture of the proximal right tibia. 2. The tibial plateaus are intact. There is however it advanced tricompartmental osteoarthritis in the right knee. Jaime Toledo MD Foot X-Ray 08/24/17 0859 Signed Impressions: Service Date/Time: Thursday, August 24, 2017 09:28 - CONCLUSION: 1. No acute fracture or dislocation in the foot. Jay Jay Diamond MD Objective Remarks LLE: Splint in place. Clean dry and intact. Intact sensation in all toes. Good capillary refills. Movement of all toes. splint removed and incisions visualized. clean and dry. minimal swelling. compartments soft. RLE: Clean dry dressings intact. Mild swelling over lower leg. Intact sensation distally with active dorsiflexion plantar flexion of foot Assessment & Plan Assessment and Plan 1) Left Tibial Pilon Fx s/p ORIF with removal of external fixator POD 2 2) Right Tibial Plateau Fx ORIF POD 13 Nonweightbearing right lower extremity PT for passive range of motion of knee and passive and active range of motion of ankle Daily dressing changes to right lower extremity Maintain splint- clean and Dry Continue elevation and ice to decrease swelling Nonweightbearing left lower extremity Lovenox Case management for discharge planning to rehabilitation Possible discharge tomorrow or Thursday -will leave splint open so can ice for the next hour -orthotech to res[plint in an hour -no concern for comparmtnet syndrome as patients swelling is minimal adn compartments are soft -will plan for Dc to [place] when pain controlled. Nikhil Manuel/Chemistry Faculty Member PA Sep 10, 2017 11:22
[2017-09-10 12:00] VITALS: BP 132/68; PULSE 91; RESP 18; TEMP 97.4; O2SAT 94
[2017-09-10] MEDS ORDERED: KETOROLAC TROMETHAMINE 60 MG/2 ML (IM) VIAL IM SCH (12:00)
--- NOTE | 2017-09-10 14:36 | HHI.DS ---
Discharge Summary Admission Date Aug 24, 2017 at 11:29 Discharge Date: Sep 10, 2017 Admitting Diagnosis Open left distal tib-fib/right tibial plateau fracture (1) Fall from ladder ICD Codes: W11.XXXA - Fall on and from ladder, initial encounter Diagnosis: Principal Status: Acute (2) Fracture of right tibial plateau ICD Codes: S82.141A - Displaced bicondylar fracture of right tibia, initial encounter for closed fracture Diagnosis: Principal Status: Acute (3) Open fracture of tibia and fibula ICD Codes: S82.209B - Unspecified fracture of shaft of unspecified tibia, initial encounter for open fracture type I or II; S82.409B - Unspecified fracture of shaft of unspecified fibula, initial encounter for open fracture type I or II Diagnosis: Principal Status: Acute Brief History Fall. CBC/BMP: 09/10/17 0339 09/10/17 0339 Significant Findings Laboratory Tests Test 09/09/17 03:30 09/10/17 03:39 White Blood Count 15.7 TH/MM3 (4.0-11.0) 14.3 TH/MM3 (4.0-11.0) Red Blood Count 3.33 MIL/MM3 (4.50-5.90) 2.93 MIL/MM3 (4.50-5.90) Hemoglobin 10.2 GM/DL (13.0-17.0) 9.1 GM/DL (13.0-17.0) Hematocrit 30.6 % (39.0-51.0) 27.3 % (39.0-51.0) Platelet Count 781 TH/MM3 (150-450) 672 TH/MM3 (150-450) Neutrophils (%) (Auto) 91.9 % (16.0-70.0) 73.8 % (16.0-70.0) Lymphocytes (%) (Auto) 4.9 % (9.0-44.0) Neutrophils # (Auto) 14.5 TH/MM3 (1.8-7.7) 10.6 TH/MM3 (1.8-7.7) Lymphocytes # (Auto) 0.8 TH/MM3 (1.0-4.8) Blood Urea Nitrogen 31 MG/DL (7-18) 37 MG/DL (7-18) Creatinine 1.41 MG/DL (0.60-1.30) Random Glucose 181 MG/DL (74-106) 132 MG/DL (74-106) Sodium Level 135 MEQ/L (136-145) Estimat Glomerular Filtration Rate 52 ML/MIN (>89) 65 ML/MIN (>89) Monocytes # (Auto) 1.0 TH/MM3 (0-0.9) Imaging Last Impressions Ankle X-Ray 09/08/17 0000 Signed Impressions: Service Date/Time: Friday, September 08, 2017 18:21 - CONCLUSION: 1. Fixation as above. Freddy De La Paz MD Tibia/Fibula X-Ray 08/28/17 0000 Signed Impressions: Service Date/Time: Monday, August 28, 2017 08:15 - CONCLUSION: 1. Fixation right tibia. Freddy De La Paz MD Lower Extremity Ultrasound 08/27/17 0000 Signed Impressions: Service Date/Time: August 13:46 - CONCLUSION: Right calf DVT. Elvin Moncada MD Chest X-Ray 08/27/17 0000 Signed Impressions: Service Date/Time: August 06:11 - CONCLUSION: Focal opacity in right midlung has masslike features. Recommend CT thorax for further characterization. Mango Murrell MD CT Angiography 08/27/17 0000 Signed Impressions: Service Date/Time: August 10:20 - CONCLUSION: 1. Pulmonary emboli within the right middle and lower lobe pulmonary artery branches. 2. Posterior infiltrates within the lower lobes and upper lobes bilaterally. 3. Tiny bilateral pleural effusions. 4. Enlarged fatty liver. 5. 8 mm low- density lesion within the right lobe near the dome which is indeterminate. Keyshawn Child MD Lower Extremity CT 08/25/17 0000 Signed Impressions: Service Date/Time: Friday, August 25, 2017 08:26 - CONCLUSION: 1. There are nondisplaced fractures involving the proximal one third shaft of the tibia. There is also a nondisplaced avulsion fracture involving the anterior tibial tuberosity. 2. There is a small 6 mm loose body in the posterior medial joint compartment. 3. Nondisplaced fracture involving the superior medial fibula. 4. Well-defined bone cyst in the distal femur and proximal tibia. Marco Dahl MD Knee X-Ray 08/24/17 0859 Signed Impressions: Service Date/Time: Thursday, August 24, 2017 09:17 - CONCLUSION: 1. Comminuted, mildly displaced fracture of the fibular head. Jaime Toledo MD Foot X-Ray 08/24/17 0859 Signed Impressions: Service Date/Time: Thursday, August 24, 2017 09:28 - CONCLUSION: 1. No acute fracture or dislocation in the foot. Jay Jay Diamond MD PE at Discharge GENERAL: This is a 52-year-old male lying in bed. Very painful. SKIN: Warm and dry. HEAD: Atraumatic. Normocephalic. EYES: PERRLA ENT: No nasal bleeding or discharge. Mucous membranes pink and moist. NECK: Trachea midline. No JVD. CARDIOVASCULAR: Regular rate and rhythm. RESPIRATORY: No accessory muscle use. Lungs are clear to auscultation. Breath sounds equal bilaterally. No distress or dyspnea. GASTROINTESTINAL: BS + x 4 quads. Abdomen soft, non-tender, nondistended. MUSCULOSKELETAL: Extremities without cyanosis, or edema. LEFT lower extremity splint in place and wrapped in Dino bandage. Right lower extremity wrapped in Dino bandage. + peripheral pulses x 4 extremities. Warm with good capillary refill and sensation. MAEW. NEUROLOGICAL: Awake and alert. Normal speech and pattern. Hospital Course [place]: This is a 52-year-old male who sustained a fall. He fell off a ladder approximately 8 feet landing on both of his feet. No LOC. Patient sustained a long stay in the hospital due to the severity of his bilateral lower extremity fractures. Both legs remained quite swollen and in external fixation. Many days were spent with ice, elevation and pain control due to the swelling. Once swelling was reduced, orthopedics were able to proceed with surgery safely. Now the patient has progressed well and is ready for admission to [facility]. INJURIES: Open LEFT tib fib fx RIGHT tibial plateau fx PMHx: Depression, HTN Procedures: 08/24: I&D w/ Closed reduction, LEFT distal tibia/fibula pilon fx w/ ex-fix. Closed reduction RIGHT tibial plateau fx w/ ex-fix . 08/28: ORIF RIGHT proximal tibia w/ removal of ex-fix 09/08: OR for left ex-fix removal. ORIF LEFT fibula. ORIF LEFT distal pilon fx Consults: Orthopedics. Case management. Orthopedics have cleared the patient for discharge to rehab today. Patient is motivated and really wants to go to rehab today. The patient is now tolerating a po diet. Eating and drinking well. Pain is being managed well with PO pain medications, all hospital medications will continue with [facility]. Pt is having regular bowel movements, and have recommended to patient to continue with stool softeners while taking narcotic pain medications to prevent constipation. Pt has been participating in PT and OT while admitted at [place] and has been ambulating with their assistance and independently . PT and OT will continue at [facility]. All follow up appointments have been provided and discussed with the patient. It is recommended that the patient keeps all his follow up appointments for continued recovery. Patient's condition and plan of care discussed with collaborating trauma surgeon. He is agreeable to plan for discharge today. Therefore, the patient is stable to be safely discharged to [facility] from a trauma surgery standpoint. Thank you for allowing us to participate in his care. We wish Jameson the best in his recovery. Trauma to the lower extremities Open LEFT tib fib fx RIGHT tibial plateau fx Orthopedics consulted and assisting in management and care 08/24: I&D w/ Closed reduction, LEFT distal tibia/fibula pilon fx w/ ex-fix. Closed reduction RIGHT tibial plateau fx w/ ex-fix 08/28: ORIF RIGHT proximal tibia w/ removal of ex-fix 09/08: OR for left ex-fix removal. ORIF LEFT fibula. ORIF LEFT distal pilon fx Collaborated with orthopedics, and they have cleared the patient for DC to Rehab today. Patient is motivated to begin rehab today Supportive care Pain management Ice and elevate PT and OT ordered NWB BLE Dressings per orthopedics Antibiotics per orthopedics - complete DVT prophylaxis Lovenox F/U with orthopedics Hypoxia Right lower extremity posterior tibial vein DVT Pulmonary embolism right middle lobe/right lower lobe O2 as needed Supportive care Aggressive pulmonary toileting Low grade fever CTA shows pulmonary emboli within the right middle and lower lobe pulmonary artery branches US bilateral lower extremities - right lower extremity posterior tibial vein DVT Lovenox 110 mg BID Pt Condition on Discharge: Stable Discharge Disposition: Rehab Inpatient Discharge Instructions DIET: Follow Instructions for: As Tolerated, No Restrictions Activities you can perform: Non Weight Bearing Activities to Avoid: Driving for 24 hrs, Concussion Sports, Contact Sports, Lifting/Bending, Weight Bearing, Prolonged Standing, Strenuous Activity, Driving Attending Statement The exam, history, and the medical decision-making described in the above note were completed with the assistance of the mid-level provider. I reviewed and agree with the findings presented. I attest that I had a [id number] encounter with the patient on the same day, and personally performed and documented my assessment and findings in the medical record. Vicki Cary Sep 10, 2017 14:35 Mir Hines MD Sep 10, 2017 19:52
== END 2017-09-10 16:43 | DRG 492 ==
LOC: NEPE 08:40 → NEDA 11:29 → N06A 20:46
PROVIDERS: ADMIT Surgery; ATTEND Surgery
PROC: 0QSG35Z Reposition Right Tibia with External Fixation Device, Percutaneous Approach (ICD-10-PCS; 2017-08-24)
PROC: 0JQP0ZZ Repair Left Lower Leg Subcutaneous Tissue and Fascia, Open Approach (ICD-10-PCS; 2017-08-24)
PROC: 0QSH35Z Reposition Left Tibia with External Fixation Device, Percutaneous Approach (ICD-10-PCS; principal; 2017-08-24 13:16)
PROC: 0QSG04Z Reposition Right Tibia with Internal Fixation Device, Open Approach (ICD-10-PCS; 2017-08-28)
PROC: 0QPGX5Z Removal of External Fixation Device from Right Tibia, External Approach (ICD-10-PCS; 2017-08-28)
PROC: 0QSK04Z Reposition Left Fibula with Internal Fixation Device, Open Approach (ICD-10-PCS; 2017-09-08)
PROC: 0QSH04Z Reposition Left Tibia with Internal Fixation Device, Open Approach (ICD-10-PCS; 2017-09-08)
PROC: 0QPHX5Z Removal of External Fixation Device from Left Tibia, External Approach (ICD-10-PCS; 2017-09-08)
DX: S82.872B Displaced pilon fracture of left tibia, initial encounter for open fracture type I or II (principal); S82.832B Other fracture of upper and lower end of left fibula, initial encounter for open fracture type I or II; I26.99 Other pulmonary embolism without acute cor pulmonale; I82.4Z1 Acute embolism and thrombosis of unspecified deep veins of right distal lower extremity; S82.141A Displaced bicondylar fracture of right tibia, initial encounter for closed fracture; I10 Essential (primary) hypertension; W11.XXXA Fall on and from ladder, initial encounter; F32.9 Major depressive disorder, single episode, unspecified; R09.02 Hypoxemia; Y99.0 Civilian activity done for income or pay
CPT/HCPCS: 71045; 71275; 73560; 73564; 73590; 73600; 73620; 73700; 76000; 80048; 80053; 82550; 82552; 85014; 85018; 85025; 85027; 85610; 85730; 90471; 90714; 93005; 93970; 94150; 94640; 94667; 94668; 96365; 96375; C1713; J0131; J0690; J1100; J1170; J1200; J1580; J1644; J1650; J1885; J2175; J2250; J2270; J2370; J2405; J3010; J3370; J7030; J7050; J7120; J7613; L1830; Q9967

== ENCOUNTER 2018-02-09 05:28 | Inpatient (IN) ==
[2018-02-09] MEDS ORDERED: Chlorhexidine Gluconate 2% 1 Pack (2 Cloths) TOPICAL ONE (05:53)
[2018-02-09] MEDS ORDERED: Metoprolol Tartrate 25 MG Tablet PO ONE (05:53)
[2018-02-09] MEDS ORDERED: Chlorhexidine 4% Topical 120 APPLIC/120 ML Bottle TOPICAL SCH (06:00)
[2018-02-09] MEDS ORDERED: ceFAZolin 2 GM Premix Inj 2 GM/100 ML BAG IV.SIG SCH (06:00)
[2018-02-09] MEDS ORDERED: Sodium Chlor 0.9% Inj 500 ML IV.SIG SCH (06:00)
[2018-02-09] MEDS ORDERED: Vancomycin Inj 1,000 MG in Sodium Chlor 0.9% Inj 250 ML IV.SIG SCH (07:00)
[2018-02-09 07:54] LABS: Prothrombin Time 10.4 sec (9.8-11.6)
[2018-02-09] MEDS ORDERED: Neostigmine Inj 5 MG/5 ML Syringe IV.PUSH ONE (09:49)
[2018-02-09] MEDS ORDERED: Phenylephrine/NS 1000 MCG/10ML Syringe IV.PUSH ONE (09:49)
[2018-02-09] MEDS ORDERED: Lidocaine PF 1% Inj 5 ML Syringe INFILTRATN ONE (09:49)
[2018-02-09] MEDS ORDERED: Glycopyrrolate Inj 1 MG/5 ML Syringe IV.PUSH ONE (09:49)
[2018-02-09] MEDS ORDERED: Bupivacaine/Epinephrine PF Inj 0.25% 10 ML Vial ONE (11:17)
--- NOTE | 2018-02-09 11:53 | P.OP ---
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 My P.A. presence was necessary throughout this case for the manipulation and positioning of the surgical extremity. My P.A. was assisting me throughout the duration of this procedure. The skill set of a physician printer floor covering assistant was medically necessary to complete this procedure. During the surgical case the surgical corsetier was working at the back table and the physician printer floor covering assistant was directly assisting me. Operation and Findings: Implants used: Synthes Plan of activity: Nonweightbearing Details of procedure: Robbie is well-known to me from previous injuries of his left distal tibia and right proximal tibia. He was treated with open reduction to fixation. 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 He has had multiple screws bend and break. I had a lengthy discussion with patient preoperatively regarding the risk and benefits of surgery. Informed consent was obtained for open reduction and internal fixation of distal tibia fracture. Soft tissue was evaluated preoperatively and found to be suitable for surgery. Patient was brought to the operating placed on operating room table. Patient was given IV sedation and general anesthesia. Timeout procedure was performed. Antibiotics were held and administered after deep cultures were obtained. The operative leg was now prepped with alcohol followed by Hibiclens and draped usual sterile fashion. A 8 inch incision was now made over the medial aspect of the ankle. Saphenous vein was protected. A full thickness flap was now elevated. The distal medial tibia was now exposed. The hardware was exposed. Scar tissue was incised around the plate. Each of the screws was loosened. The screws were now removed. The plate was now elevated using an osteotome. The 3 proximal broken screws were identified under fluoroscopy. Using appropriate broken screw removal instrumentation these broken screws were removed. Next attention was turned towards the nonunion site. Soft tissue and bone and fibrous tissue were debrided with a TPS bur. Bone was debrided back to healthy bleeding bone. Soft tissue and bone were thoroughly irrigated with sterile saline. Next, a Synthes medial distal tibial plate was selected. Plate was placed along the medial aspect of the distal tibia. Plate was provisionally held to bone with K wires. 2.7 cortical screws and 3.5 cortical screws were used to compress plate to bone. Multiple screws were placed into the shaft. Multiple 2.7 locking screws were placed into the distal segment. All screws were predrilled and premeasured for appropriate lengths. At this point attention was turned iliac crest bone grafting. A 3 cm incision was made over the iliac crest. Subcutaneous tissue dissected with Bovie. Osteotomes were used to create a window in the iliac crest. Bone graft was now harvested from the iliac crest using curettes. After completion of harvesting of the bone graft fascia was closed with #1 Vicryl. Subcutaneous tissues closed with 3-0 Vicryl. Skin was closed with re. The incision area was infiltrated with quarter percent Marcaine with epinephrine. At this point a large Infuse graft was opened. The Infuse was mixed appropriately and allowed to set for over 15 minutes. This was mixed with iliac crest bone graft. This bone graft with Infuse was now packed in the fracture nonunion site. The defect was completely filled. Fluoroscopy confirmed appropriate alignment of fracture with well-placed hardware. The incisions were now closed. Fascia was closed with #1 Vicryl, Subcutaneous tissues closed with 3-0 Vicryl and skin was closed with 3-0 nylon and re. Sterile dressings were applied. The patient was transferred to recovery in stable condition.
[2018-02-09] MEDS ORDERED: Vancomycin Inj 1 GM/200 ML PIGGYBACK IV.SIG SCH (12:00)
[2018-02-09] MEDS ORDERED: ceFAZolin Inj 2,000 MG in Sodium Chlor 0.9% Inj 80 ML IV.SIG SCH (12:00)
[2018-02-09] MEDS ORDERED: *morphine SULFATE 4 MG/ML PERIprocedure ONLY ONE (12:29)
[2018-02-09] MEDS ORDERED: Post-op Orders (for Pharmacy) OTHER STA (12:32)
[2018-02-09] MEDS ORDERED: *Ondansetron Inj 4 MG/2 ML Vial PERIprocedural Use ONLY ONE (12:32)
[2018-02-09] MEDS ORDERED: *Promethazine Inj 25 MG/ML Vial PERIprocedural use ONLY ONE (12:39)
[2018-02-09] MEDS ORDERED: *Meperidine Inj 25 MG/ML Vial PERIprocedural Use ONLY ONE (12:45)
--- NOTE | 2018-02-09 12:45 | P.PNOP ---
Physical Exam Vital signs: Vital Signs 02/09/18 07:05 Temperature 98.1 F Pulse Rate 85 Respiratory Rate 20 Blood Pressure 140/101 H Pulse Oximetry 96 Intake & Output 02/08/18 02/09/18 02/09/18 18:59 06:59 18:59 Intake Total 1000 / 1000 Output Total 340 / 340 Balance 660 / 660 Weight 102 kg Intake: Anesthesia Amount 1000 / 1000 Output: Urine 240 / 240 Estimated Blood Loss 100 / 100 Other: Weight On Admission 102 kg Results - Labs Laboratory Results - last 24 hr 02/09/18 07:10 PT 10.4 INR 1.0 Assessment and Plan - Assessment and Plan [facility] Prescription Drug Monitoring Database has been queried and verified prior to prescribing the controlled substance. Acute pain exception. This patient has normal, predicted, physiological, and time limited response to an adverse mechanical stimulus associated with surgery, trauma, or acute illness as described in my notes. There is a lack of alternative treatment options other than to include the prescribed narcotic treatment for this condition.
[2018-02-09] MEDS ORDERED: fentaNYL Citrate Inj 100 MCG/2 ML Ampul ONE (13:00)
--- NOTE | 2018-02-09 17:54 | XR ---
EXAM DATE: 02/09/2018 5:51 PM EDT AGE/SEX: 53 years / Male INDICATIONS: ORIF of the left tibia with removal of previous medial hardware. CLINICAL DATA: This is the patient's initial encounter. Patient reports that signs and symptoms have been present for 1 day and indicates a pain score of Nonresponsive. MEDICAL/SURGICAL HISTORY: Hypertension. Pulmonary Embolus. Appendectomy. Previous ORIF of the left tibia. COMPARISON: No prior exams available for comparison. FINDINGS: Status post internal fixation for fractures of the distal tibia and fibula. There is good position an d alignment of the fracture fragments. The hardware is grossly intact. There is good alignment at the mortise joint. CONCLUSION: Good position and alignment on this postoperative study. Electronically signed by: Marco Dahl MD 02/09/2018 5:53 PM EDT
[2018-02-09] MEDS: ceFAZolin 2 GM Premix Inj 2 GM/100 ML BAG IV.SIG SCH ×2 (18:09→21:45)
[2018-02-09] MEDS: Vancomycin Inj 1,000 MG in Sodium Chlor 0.9% Inj 250 ML IV.SIG SCH (18:15)
[2018-02-09] MEDS: traZODone 50 MG Tablet PO SCH (21:44)
[2018-02-09] MEDS: buPROPion 150 MG 12 HR Tablet PO SCH (21:44)
[2018-02-09] MEDS: Senna/Docusate Sodium 8.6/50 MG Tablet PO SCH (21:44)
[2018-02-09] MEDS: Lisinopril 20 MG Tablet PO SCH (21:44)
[2018-02-09] MEDS: dilTIAZem CD 180 MG Capsule PO SCH (21:44)
[2018-02-09] MEDS: Sertraline 100 MG Tablet PO SCH (21:45)
[2018-02-09] MEDS: Morphine Inj 4 MG/ML Vial IV.PUSH PRN (23:41)
[2018-02-10] MEDS: ceFAZolin 2 GM Premix Inj 2 GM/100 ML BAG IV.SIG SCH ×3 (02:08→18:59)
[2018-02-10] MEDS: Morphine Inj 4 MG/ML Vial IV.PUSH PRN ×4 (03:37→21:38)
[2018-02-10 03:58] LABS: INR 1.1 Ratio; Prothrombin Time 11.5 sec (9.8-11.6)
[2018-02-10] MEDS: Vancomycin Inj 1,000 MG in Sodium Chlor 0.9% Inj 250 ML IV.SIG SCH (06:13)
--- NOTE | 2018-02-10 06:33 | P.PNOP ---
Subjective Interval history: Resting comfortably with no new complaints Physical Exam Vital signs: Vital Signs 02/09/18 07:05 02/09/18 12:20 02/09/18 12:35 Temperature 98.1 F 98.5 F Pulse Rate 85 114 H 99 H Respiratory Rate 20 22 20 Blood Pressure 140/101 H 182/86 H 157/78 H Pulse Oximetry 96 97 96 02/09/18 12:50 02/09/18 13:15 02/09/18 13:30 Temperature 98.2 F Pulse Rate 87 79 79 Respiratory Rate 18 18 20 Blood Pressure 131/80 112/81 148/82 H Pulse Oximetry 96 96 97 02/09/18 13:50 02/09/18 16:00 02/09/18 16:02 Temperature 97.5 F L 97.4 F L Pulse Rate 83 89 Respiratory Rate 18 18 18 Blood Pressure 143/77 H 148/94 H Pulse Oximetry 95 93 L 02/09/18 20:45 02/09/18 21:42 02/09/18 23:37 Temperature 98.5 F 98.6 F Pulse Rate 105 H 86 Respiratory Rate 18 18 Blood Pressure 130/84 129/74 Pulse Oximetry 97 94 L 94 L 02/10/18 04:18 Temperature 98.1 F Pulse Rate 74 Respiratory Rate 18 Blood Pressure 124/72 Pulse Oximetry 97 Intake & Output 02/09/18 02/09/18 02/10/18 06:59 18:59 06:59 Intake Total 2720 / 2720 1830 / 1830 Output Total 1415 / 1415 575 / 575 Balance 1305 / 1305 1255 / 1255 Weight 102 kg 102.4 kg 102.4 kg Intake: IV 1000 / 1000 1350 / 1350 LR 1000 mL Inj 1,000 ML @ 80 1000 / 1000 mls/hr IV.CONT .[id number] [facility] Rx# :[id number] LR 1000 mL Inj 1,000 ML @ 30 1000 / 1000 mls/hr IV.SIG .Q24H [facility] Rx#: [id number] Vancomycin Inj 1,000 MG In NS 250 / 250 Inj 250 ML @ 250 mls/hr IV.SIG Q12H [facility] Rx#:[id number] Ancef 2 GM Premix Inj 2 gm In 100 / 100 100 ml @ 200 mls/hr IV.SIG Q8H [facility] Rx#:[id number] Oral 720 / 720 480 / 480 Anesthesia Amount 1000 / 1000 Output: Urine 1315 / 1315 575 / 575 Estimated Blood Loss 100 / 100 Other: # Voids 1 Date of Last Bowel Movement 02/09/18 02/09/18 # Bowel Movements 0 Weight On Admission 102 kg Narrative: Left lower extremity: Clean dry dressings over iliac crest graft site. Splint intact with mild drainage. Intact sensation in all toes. Capillary refills and distal pulses Results - Labs Laboratory Results - last 24 hr 02/09/18 02/10/18 07:10 03:28 PT 10.4 11.5 INR 1.0 1.1 Microbiology 02/09/18 10:55 Wound - Knee Fungal Smear - Final No fungal elements seen 02/09/18 10:55 Wound - Knee Gram Stain - Final 02/09/18 10:55 Wound - Knee Fungal Smear - Final No fungal elements seen 02/09/18 10:55 Wound - Knee Gram Stain - Final - Imaging Impressions Tibia/Fibula X-Ray 02/09/18 00:00 CONCLUSION: Good position and alignment on this postoperative study. Assessment and Plan - Assessment and Plan Left distal tibia nonunion status post removal hardware with open reduction internal fixation and iliac crest bone graft with infuse POD 1 Left lower extremity: Nonweightbearing left lower extremity Maintain splint Elevation Iliac crest bone graft harvest site begin daily dressing changes beginning POD 2 with Xeroform and Primapore Resume Coumadin and two doses of bridging Lovenox starting today Incentive spirometry Plan for possible discharge to home tomorrow If significant drainage we will re-splint if necessary tomorrow morning Follow-up appointment with Dr. Brownlee or [place] in 2 weeks [facility] [place] Database has been queried and verified prior to prescribing the controlled substance. Acute pain exception. This patient has normal, predicted, physiological, and time limited response to an adverse mechanical stimulus associated with surgery, trauma, or acute illness as described in my notes. There is a lack of alternative treatment options other than to include the prescribed narcotic treatment for this condition.
--- NOTE | 2018-02-10 06:35 | P.DCO ---
- Physical Therapy Physical Therapy: Gait training, Safety evaluation Left Lower Extremity Weight Bearing: Non-weight bearing Additional instructions: assist with ADL's - Nursing Dressing changes: Do not change dressing (Left lower leg splint), Daily dressing change (to left hip with Xeroform and Primapore) - Certification Need for Home Health services: I have seen patient Robbie Esctoo on 02/10/18. My clinical findings support the need for the requested home health care services because: Need for Home Health Services: Limited mobility due to disease progression Homebound Certification: I certify that my clinical findings support that this patient is homebound because: Homebound Certification: Post-op weakness
[2018-02-10] MEDS: GABAPENTIN PO SCH (06:57)
[2018-02-10] MEDS ORDERED: Calcium Carbonate 500 MG Tablet PO SCH (09:00)
[2018-02-10] MEDS: Senna/Docusate Sodium 8.6/50 MG Tablet PO SCH ×2 (09:05→20:19)
[2018-02-10] MEDS: buPROPion 150 MG 12 HR Tablet PO SCH ×2 (09:05→20:19)
[2018-02-10] MEDS: Gabapentin 300 MG Capsule PO SCH ×3 (09:05→17:05)
[2018-02-10] MEDS: Calcium/Vitamin D 250/125 MG Tablet PO SCH ×2 (09:05→20:19)
[2018-02-10] MEDS: Enoxaparin Inj 40 MG/0.4 ML Syringe SQ SCH (12:04)
[2018-02-10] MEDS: traZODone 50 MG Tablet PO SCH (20:19)
[2018-02-10] MEDS: Lisinopril 20 MG Tablet PO SCH (20:19)
[2018-02-10] MEDS: Sertraline 100 MG Tablet PO SCH (20:19)
[2018-02-10] MEDS: dilTIAZem CD 180 MG Capsule PO SCH (20:19)
[2018-02-11] MEDS: ceFAZolin 2 GM Premix Inj 2 GM/100 ML BAG IV.SIG SCH ×2 (02:19→11:13)
[2018-02-11 06:20] LABS: Prothrombin Time 10.4 sec (9.8-11.6)
--- NOTE | 2018-02-11 06:36 | P.PNOP ---
Subjective Interval history: Pain controlled. States he is continuing to have some difficulty ambulate Physical Exam Vital signs: Vital Signs 02/10/18 08:00 02/10/18 10:15 02/10/18 12:00 Temperature 98.2 F 97.9 F Pulse Rate 65 75 Respiratory Rate 18 18 18 Blood Pressure 106/62 136/76 Pulse Oximetry 93 L 91 L 02/10/18 12:49 02/10/18 16:00 02/10/18 17:22 Temperature 98.4 F Pulse Rate 71 Respiratory Rate 18 18 18 Blood Pressure 116/61 Pulse Oximetry 91 L 02/10/18 19:35 02/10/18 19:59 02/11/18 00:00 Temperature 100.2 F H 99.6 F Pulse Rate 81 77 Respiratory Rate 18 16 Blood Pressure 141/68 H 94/54 L Pulse Oximetry 93 L 94 L 93 L 02/11/18 04:00 02/11/18 05:40 Temperature 99.5 F Pulse Rate 84 80 Respiratory Rate 16 Blood Pressure 88/51 L 101/54 L Pulse Oximetry 92 L Intake & Output 02/10/18 02/10/18 02/11/18 06:59 18:59 06:59 Intake Total 1930 / 1930 2069 / 0 200 / 200 Output Total 575 / 575 450 / 450 Balance 1355 / 1355 2069 -250 / -250 Weight 102.4 kg Intake: IV 1450 / 1450 1350 / 1350 200 / 200 LR 1000 mL Inj 1,000 ML @ 80 1000 / 1000 1000 / 1000 mls/hr IV.CONT .[id number] [facility] Rx# :[id number] Vancomycin Inj 1,000 MG In NS 250 / 250 250 / 250 Inj 250 ML @ 250 mls/hr IV.SIG Q12H [facility] Rx#:[id number] Ancef 2 GM Premix Inj 2 gm In 200 / 200 100 / 100 200 / 200 100 ml @ 200 mls/hr IV.SIG Q8H [facility] Rx#:[id number] Oral 480 / 480 720 / 720 Output: Urine 575 / 575 450 / 450 Other: # Voids 1 4 Date of Last Bowel Movement 02/09/18 02/10/18 02/09/18 # Bowel Movements 0 Narrative: Left lower extremity: Clean dry dressings over iliac crest graft site. Splint intact with mild drainage. Splint taken down and loosened. intact sensation in all toes. Capillary refills and distal pulses Results - Labs Laboratory Results - last 24 hr 02/11/18 05:21 PT 10.4 INR 1.0 Microbiology 02/09/18 10:55 Wound - Knee Acid Fast Bacilli Smear - Final No acid fast bacilli seen 02/09/18 10:55 Wound - Knee Acid Fast Bacilli Smear - Final No acid fast bacilli seen 02/09/18 10:55 Wound - Knee Gram Stain - Final 02/09/18 10:55 Wound - Knee Wound Culture - Preliminary No growth in 24 hours 02/09/18 10:55 Wound - Knee Gram Stain - Final 02/09/18 10:55 Wound - Knee Wound Culture - Preliminary No growth in 24 hours Assessment and Plan - Problem List (1) Displaced pilon fracture of left tibia, subsequent encounter for 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 Code(s): S82.872M - Displaced pilon fracture of left tibia, subsequent encounter for 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 Brownlee or [place] in 2 weeks [id number] Prescription Drug Monitoring Database has been queried and verified prior to prescribing the controlled substance. Acute pain exception. This patient has normal, predicted, physiological, and time limited response to an adverse mechanical stimulus associated with surgery, trauma, or acute illness as described in my notes. There is a lack of alternative treatment options other than to include the prescribed narcotic treatment for this condition.
[2018-02-11] MEDS: Calcium/Vitamin D 250/125 MG Tablet PO SCH ×2 (08:22→20:38)
[2018-02-11] MEDS: Senna/Docusate Sodium 8.6/50 MG Tablet PO SCH ×2 (08:22→20:38)
[2018-02-11] MEDS: buPROPion 150 MG 12 HR Tablet PO SCH ×2 (08:22→20:38)
[2018-02-11] MEDS: Gabapentin 300 MG Capsule PO SCH ×3 (08:22→18:06)
[2018-02-11] MEDS: Morphine Inj 4 MG/ML Vial IV.PUSH PRN ×2 (10:56→20:39)
[2018-02-11 11:00] LABS: Hemoglobin 12.5 gm/dL (13.0-17.0)
[2018-02-11] MEDS: Enoxaparin Inj 40 MG/0.4 ML Syringe SQ SCH (11:13)
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
--- NOTE | 2018-02-11 12:17 | XR ---
EXAM DATE: 02/11/2018 11:54 AM EDT AGE/SEX: 53 years / Male INDICATIONS: Short of breath. CLINICAL DATA: This is the patient's initial encounter. Patient reports that signs and symptoms have been present for 3 days and indicates a pain score of 0/10. MEDICAL/SURGICAL HISTORY: Hypertension. pulmonary embolus Appendectomy. left tib/fib surgery COMPARISON: [facility], CHEST SINGLE AP, 08/27/2017. . FINDINGS: Mild streaky perihilar parenchymal parenchymal opacity and left base parenchymal opacity. No evidence of effusion. Cardiac contours are satisfactory. CONCLUSION: Mild bilateral infiltrates Electronically signed by: Elvin Moncada MD 02/11/2018 12:15 PM EDT
[2018-02-11 13:16] LABS: Albumin 3.4 g/dL (3.4-5.0); Anion Gap 9 meq/L (5-15); Aspartate Aminotransferase 20 U/L (15-37); Blood Urea Nitrogen 23 mg/dL (7-18); Calcium 8.8 mg/dL (8.5-10.1); Carbon Dioxide 28.4 meq/L (21.0-32.0); Chloride 104 meq/L (98-107); Glomerular Filtration Rate 27 mL/min (>89); Glucose,Random 110 mg/dL (74-106); Potassium 4.3 meq/L (3.5-5.1); Sodium 141 meq/L (136-145)
[2018-02-11 13:17] LABS: Alanine Aminotransferase 12 U/L (12-78)
[2018-02-11 13:20] LABS: Alkaline Phosphatase 79 U/L (45-117); Total Protein 6.8 g/dL (6.4-8.2)
[2018-02-11 13:21] LABS: Hematocrit 38.2 % (39.0-51.0); Hemoglobin 12.6 gm/dL (13.0-17.0); Lymph % (Auto) 17.3 % (9.0-44.0); Mean Corpuscular HGB Conc 32.9 % (32.0-36.0); Mean Corpuscular Volume 91.1 fL (80.0-100.0); Mean Platelet Volume 8.2 fL (7.0-11.0); Mono % (Auto) 9.8 % (0.0-8.0); Neut % (Auto) 71.4 % (16.0-70.0); Platelet Count 216 th/mm3 (150-450); Red Cell Distribution Width 14.4 % (11.6-17.2); White Blood Count 12.5 th/mm3 (4.0-11.0)
[2018-02-11 13:22] LABS: Baso # (Auto) 0.1 th/mm3 (0.0-0.2); Baso % (Auto) 0.5 % (0.0-2.0); Eos # (Auto) 0.1 th/mm3 (0.0-0.4); Lymph # (Auto) 2.2 th/mm3 (1.0-4.8); Mono # (Auto) 1.2 th/mm3 (0.0-0.9); Neut # (Auto) 8.9 th/mm3 (1.8-7.7)
--- NOTE | 2018-02-11 14:27 | US ---
EXAM DATE: 02/11/2018 2:03 PM EDT AGE/SEX: 53 years / Male INDICATIONS: Left leg pain. CLINICAL DATA: This is the patient's subsequent encounter. Patient reports that signs and symptoms h ave been present for 1 day and indicates a pain score of 3/10. MEDICAL/SURGICAL HISTORY: Hypertension. Deep venous thrombosis. Depression. Sleep apnea. Pulmo nary embolism. Bilateral leg fractures. Appendectomy. Right knee surgery. Bilateral leg fracture rep airs. [place] [facility] [place]. . TECHNIQUE: Venous ultrasound of both lower extremities was performed from the inguinal ligament to t he proximal calf. Real-time, color Doppler and spectral tracing, compression and augmentation techni ques were used. FINDINGS: Normal compression of the deep venous system from the inguinal region to the proximal calf . No echogenic clot is seen. Normal response of the venous system to augmentation and respiration. CONCLUSION: No evidence of left lower extremity DVT Electronically signed by: Elvin Moncada MD 02/11/2018 2:26 PM EDT
[2018-02-11] MEDS: Sod Chloride 0.9% Inj 1,000 ML IV.CONT SCH ×2 (14:54→23:10)
[2018-02-11] MEDS ORDERED: Piperacil/Tazo 4.5 GM Premix 4.5 GM/100 ML BAG IV.SIG SCH (16:00)
[2018-02-11] MEDS ORDERED: Warfarin Consult Pharmacy OTHER PRN (16:14)
[2018-02-11] MEDS ORDERED: Azithromycin 250 MG Tablet PO SCH (16:15)
[2018-02-11] MEDS ORDERED: Sodium Chlor 0.9% Inj 500 ML IV.SIG SCH (16:17)
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
[2018-02-11] MEDS: dilTIAZem CD 180 MG Capsule PO SCH (20:37)
[2018-02-11] MEDS: traZODone 50 MG Tablet PO SCH (20:38)
[2018-02-11] MEDS: Sertraline 100 MG Tablet PO SCH (20:39)
[2018-02-11 23:26] VITALS: RESP 18
[2018-02-12] MEDS: Sod Chloride 0.9% Inj 1,000 ML IV.CONT SCH ×4 (03:48→19:00)
--- NOTE | 2018-02-12 06:43 | P.PNOP ---
Subjective Interval history: Patient states he is improving since yesterday. States that he continues to have tenderness over the left hip over the iliac crest graft was harvested. Physical Exam Vital signs: Vital Signs 02/11/18 08:00 02/11/18 16:00 02/11/18 18:11 Temperature 98.6 F 98.0 F Pulse Rate 75 82 Respiratory Rate 16 18 Blood Pressure 92/53 L 126/64 Pulse Oximetry 93 L 94 L 95 02/11/18 19:46 02/11/18 20:00 02/12/18 00:00 Temperature 98 F 99.5 F 100.1 F H Pulse Rate 82 82 89 Respiratory Rate 16 18 18 Blood Pressure 137/63 128/58 L 142/67 H Pulse Oximetry 92 L 94 L 94 L 02/12/18 03:44 02/12/18 03:50 Temperature 100.5 F H Pulse Rate 90 Respiratory Rate 18 Blood Pressure 137/71 Pulse Oximetry 94 L 94 L Intake & Output 02/11/18 02/11/18 02/12/18 06:59 18:59 06:59 Intake Total 200 / 200 600 / 600 2120 / 2120 Output Total 450 / 450 800 / 800 Balance -250 / -250 600 / 600 1320 / 1320 Weight 102.4 kg Intake: IV 200 / 200 600 / 600 1999 / 1999 NS Inj 1,000 ML @ 140 mls/hr IV 1999 / 1999 .CONT .Q7H9M [facility] Rx#:[id number] NS Inj 500 ML @ Wide Open IV. 500 / 500 SIG BOLUS [facility] Rx#:[id number] Ancef 2 GM Premix Inj 2 gm In 200 / 200 100 / 100 100 ml @ 200 mls/hr IV.SIG Q8H [facility] Rx#:[id number] Oral 120 / 120 Output: Urine 450 / 450 800 / 800 Other: # Voids 1 1 Date of Last Bowel Movement 02/09/18 02/13/18 # Bowel Movements 2 Narrative: Left hip: Clean dressings in place with mild drainage. Mild swelling surrounding the incision Left lower extremity: No pain with hip or knee range of motion. Splint in place. Intact sensation distally in all toes good capillary refills with active movement Results - Labs CBC & Chem 7: 02/11/18 11:30 02/11/18 11:30 Laboratory Results - last 24 hr 02/11/18 02/11/1818 10:18 11:30 11:30 WBC 12.5 H RBC 4.20 L Hgb 12.5 L 12.6 L Hct 38.0 L 38.2 L MCV 91.1 MCH 30.0 MCHC 32.9 RDW 14.4 Plt Count 216 MPV 8.2 Neut % (Auto) 71.4 H Lymph % (Auto) 17.3 [place] % (Auto) 9.8 H Eos % (Auto) 1.0 Baso % (Auto) 0.5 Neut # (Auto) 8.9 H Lymph # (Auto) 2.2 [place] # (Auto) 1.2 H Eos # (Auto) 0.1 Baso # (Auto) 0.1 WBC Differential . Differential Comment Auto diff final Sodium 141 Potassium 4.3 Chloride 104 Carbon Dioxide 28.4 Anion Gap 9 BUN 23 H Creatinine 2.52 H Estimated GFR 27 L Random Glucose 110 H Calcium 8.8 Total Bilirubin 0.4 AST 20 ALT 12 Alkaline Phosphatase 79 Total Protein 6.8 Albumin 3.4 Microbiology 02/09/18 10:55 Wound - Knee Gram Stain - Final 02/09/18 10:55 Wound - Knee Wound Culture - Preliminary No growth in 48 hours 02/09/18 10:55 Wound - Knee Gram Stain - Final 02/09/18 10:55 Wound - Knee Wound Culture - Preliminary No growth in 48 hours - Imaging Impressions Chest X-Ray 02/11/18 00:00 CONCLUSION: Mild bilateral infiltrates Venous Doppler Study 02/11/18 00:00 CONCLUSION: No evidence of left lower extremity DVT Assessment and Plan - Problem List (1) Displaced pilon fracture of left tibia, subsequent encounter for 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 Code(s): S82.872M - Displaced pilon fracture of left tibia, subsequent encounter for 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 Brownlee or [place] in 2 weeks E-FORE Prescription Drug Monitoring Database has been queried and verified prior to prescribing the controlled substance. Acute pain exception. This patient has normal, predicted, physiological, and time limited response to an adverse mechanical stimulus associated with surgery, trauma, or acute illness as described in my notes. There is a lack of alternative treatment options other than to include the prescribed narcotic treatment for this condition.
[2018-02-12 07:05] LABS: Hematocrit 35.8 % (39.0-51.0); Mean Corpuscular HGB Conc 33.5 % (32.0-36.0); Mean Corpuscular Hemoglobin 30.6 pg (27.0-34.0); Mean Corpuscular Volume 91.3 fL (80.0-100.0); Mean Platelet Volume 7.8 fL (7.0-11.0); Platelet Count 207 th/mm3 (150-450); Red Blood Count 3.92 mil/mm3 (4.50-5.90); Red Cell Distribution Width 14.3 % (11.6-17.2); White Blood Count 10.4 th/mm3 (4.0-11.0)
[2018-02-12 07:11] LABS: Prothrombin Time 10.1 sec (9.8-11.6)
[2018-02-12 07:39] LABS: Calcium 8.2 mg/dL (8.5-10.1); Potassium 4.1 meq/L (3.5-5.1)
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
--- NOTE | 2018-02-12 09:35 | XR ---
EXAM DATE: 02/12/2018 9:23 AM EDT AGE/SEX: 53 years / Male INDICATIONS: . Atelectasis. Patient states no chest complaints. CLINICAL DATA: This is the patient's subsequent encounter. Patient reports that signs and symptoms h ave been present for 4 - 6 days and indicates a pain score of 0/10. MEDICAL/SURGICAL HISTORY: . Hypertension. Deep venous thrombosis. Depression. Sleep apnea. Pulm onary embolism. . Bilateral leg fractures. Appendectomy. Right knee surgery. Bilateral leg fractur e repairs. COMPARISON: [facility] [place], CHEST 1V SINGLE AP, 02/11/2018. . FINDINGS: The cardiac silhouette is enlarged in transverse diameter. The lungs are hypoinflated but clear. No e ffusions are identified. CONCLUSION: Cardiomegaly. No acute pulmonary disease. Electronically signed by: Jignesh Parikh MD 02/12/2018 9:34 AM EDT
[2018-02-12] MEDS: Gabapentin 300 MG Capsule PO SCH ×3 (10:11→17:19)
[2018-02-12] MEDS: Calcium/Vitamin D 250/125 MG Tablet PO SCH ×2 (10:11→20:40)
[2018-02-12] MEDS: Enoxaparin Inj 40 MG/0.4 ML Syringe SQ SCH (10:11)
[2018-02-12] MEDS: Senna/Docusate Sodium 8.6/50 MG Tablet PO SCH ×2 (10:11→20:41)
[2018-02-12] MEDS: buPROPion 150 MG 12 HR Tablet PO SCH ×2 (10:11→20:41)
[2018-02-12] MEDS: traZODone 50 MG Tablet PO SCH (20:41)
[2018-02-12] MEDS: Sertraline 100 MG Tablet PO SCH (20:41)
[2018-02-12] MEDS: dilTIAZem CD 180 MG Capsule PO SCH (20:41)
[2018-02-13 08:38] VITALS: BP 120/64; PULSE 77; TEMP 97.7; O2SAT 93
--- NOTE | 2018-02-13 09:06 | P.PNFP ---
Subjective Interval history: Mr Escoto had no acute events overnight. Pain is controlled, transferring to wheelchair and getting OOB to sit in chair, voiding, and stooling. He can feel now in his toes of left foot althought there is some residual tingling from time to time. He states he has had success with Miralax for BM. He has been approved by [employer] to go to [place] this morning. Denies CP, SOB, N/ V/D. <Stuart Campbell III - 02/13/18 09:06> Results - Labs Result diagrams: 02/12/18 05:38 02/12/18 05:38 <Yanira Olivera - 02/15/18 08:57> - Imaging Impressions Chest X-Ray 02/12/18 06:00 CONCLUSION: Cardiomegaly. No acute pulmonary disease. <Stuart Campbell III 02/13/18 09:06> Physical Exam Vital signs: Vital Signs 02/12/18 12:00 02/12/18 16:00 02/12/18 20:00 Temperature 98 F 98 F 97.8 F Pulse Rate 82 74 75 Respiratory Rate 18 18 18 Blood Pressure 140/62 130/72 128/64 Pulse Oximetry 92 L 92 L 94 L 02/13/18 00:00 02/13/18 08:00 Temperature 98 F 97.7 F Pulse Rate 81 77 Respiratory Rate 18 18 Blood Pressure 134/60 120/64 Pulse Oximetry 95 93 L Intake & Output 02/12/18 02/13/18 02/13/18 18:59 06:59 18:59 Intake Total 480 / 480 120 / 120 Output Total 1800 / 1800 300 / 300 Balance -1320 / -1320 -180 / -180 Weight 102 kg Intake: Oral 480 / 480 120 / 120 Output: Urine 1800 / 1800 300 / 300 Other: Date of Last Bowel Movement 02/12/18 02/13/18 # Bowel Movements 1 <Stuart Campbell III - 02/13/18 09:06> Narrative: GENERAL: Middle aged white male lying in bed with short cast on LLE below the knee and wearing a ball cap in bed. Pt in NAD. SKIN: Warm and dry. One 2 cm x 2 cm excoriated skin thickness lesion that appears to be a bruise on left buttocks cheek. There are no signs of skin breakdown otherwise. There is a bandage over left pelvis from bone graft. HEAD: Normocephalic. EYES: No scleral icterus. No injection or drainage. EOMI. NECK: Supple, trachea midline. No JVD or lymphadenopathy. CARDIOVASCULAR: Regular rate and rhythm without murmurs, gallops, or rubs. RESPIRATORY: Breath sounds equal bilaterally. No accessory muscle use. Resting comfortably at 94-95% RA. GASTROINTESTINAL: Abdomen soft, non-tender, nondistended. Hypoactive BS. MUSCULOSKELETAL: No cyanosis, or edema. LLE in splint. Pt can wiggle toes, today states he can feel light touch on toes. There is intermittent numbness or tingling. Left hip: Clean dressings in place with no drainage. 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 FM inpatient was consulted due to increasing O2 requirement on 4L NC to maintain 91-92% O2 sats, pain in LLE above his cast, and Hx of DVT and PE after his first surgery for the same fracture. Pt has been rehydrated and has worked well with PT to improve atelectasis. Pt has been afebrile >48 hours now. Physical exam benign and breathing well on RA. 1. POD#4 -Continue Harts 10-325 mg PO PRN for pain -PO fluids -Lovenox 40 mg subcu daily -Warfarin 6mg -Daily INR until therapeutic range 2.0-3.0 -Pharmacy consult for warfarin mgmt as pt bridges from Lovenox -Miralax per pt preference -PT -OOB to chair 2-3x per day 2. Atelectasis -- Low O2 sats 91-92% on 4L NC after requiring no O2 prior-- resolved -Doppler US of LLE negative for DVT -CXR 02/11 showing bilateral infiltrates--improved with PT and OOB to chair -CBC with WBC 10.4 -Incentive spirometry 3. ADRIA resolved -Hold Lisinopril -CMP with Cr 2.52 has resolved 4. HTN -Diltiazem 360 mg PO HS -Catapres 0.1 mg PO q6h -Catapres 0.1 mg PO PRN if SBP >180 and/or DBP >100 -Holding Lisinopril 40 mg daily as above 5. Depression -Bupropion 150 mg PO BID -Sertraline 100 mg PO HS 6. 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 Please refer to Dr. Ybarra's note regarding details of ongoing medical issues. Patient well known to the undersigned, has had significant difficulties orthopedically after an industrial accident in August 2017. Postop day 2 revision of left tibial fibula ankle fracture with bone grafting and plans to go to [facility]. Discussed his emotional response and his being able to process the stress of the injury, not working, financial concerns, family concerns. Patient is on sertraline and Wellbutrin. Notable that the patient's anxiety and depression date in part to the of her daughter approximately 5 and half years ago. Appreciate medical team's evaluation and management. Bubba Alvarado MD <Stuart Campbell III - 02/13/18 09:06> - Attending Attestation The exam, history, and the medical decision-making described in the above note were completed with the assistance of the resident physician. I reviewed and agree with the findings presented. I attest that I had a [id number] encounter with the patient on the same day, and personally performed and documented my assessment and findings in the medical record. he is doing very well after his fluid intake increased back to normal <Yanira Olivera - 02/15/18 08:57>
[2018-02-13] MEDS ORDERED: Polyethylene Glycol 3350 17 GM Packet PO SCH (10:00)
[2018-02-13] MEDS: buPROPion 150 MG 12 HR Tablet PO SCH (10:03)
[2018-02-13] MEDS: Gabapentin 300 MG Capsule PO SCH (10:05)
[2018-02-13] MEDS: Senna/Docusate Sodium 8.6/50 MG Tablet PO SCH (10:05)
[2018-02-13] MEDS: Enoxaparin Inj 40 MG/0.4 ML Syringe SQ SCH (10:06)
[2018-02-13] MEDS: Calcium/Vitamin D 250/125 MG Tablet PO SCH (10:06)
--- NOTE | 2018-03-04 17:41 | P.DS ---
Date of admission: 02/09/18 05:28 Primary care physician: Bubba Alvarado MD Attending physician on discharge: Davon Gibbs Brief History from admission: due to severe injury he had a left tibial pilon fracture. He had open reduction internal fixation and consequently went on to a nonunion. Due to the nonunion he is scheduled for surgery for removal of hardware and iliac crest bone graft harvesting further open reduction and fixation due to the nonunion. Patient is on Coumadin and has stopped 5 days prior and INR is at a safe level for surgery. 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 there are no complications with the surgery and is transferred to PACU. Once on 6 he continues to progress well. 2 days after surgery he began to have bradycardia and lower oxygen saturations. Consultation for medical assistance from family medical residents is ordered and progress as well. See family medicine notes for details. He continues to progress slowly and since he lives at home it is recommended that he go to inpatient rehabilitation once medically stable. He does so 02/13/2018. - Time Spent with Patient Total time spent providing and/or coordinating discharge services: Greater than 30 minutes - Quality: VTE Deep Vein Thrombosis/Pulmonary Embolism Present on Admission: Yes Exam Narrative: Left hip: Clean dressings in place with mild drainage. Mild swelling surrounding the incision Left lower extremity: No pain with hip or knee range of motion. Splint in place. Intact sensation distally in all toes good capillary refills with active movement - Constitutional no acute distress Results Procedures completed during hospitalization: Removal of deep hardware, open reduction internal fixation left distal tibia fracture nonunion, iliac crest bone grafting, Infuse grafting Labs on day of discharge: Preliminary micro results at discharge 02/09/18 10:55 Mycobacterial Culture - Preliminary Wound - Knee No growth in 3 weeks 02/09/18 10:55 Mycobacterial Culture - Preliminary Wound - Knee No growth in 3 weeks 02/09/18 10:55 Fungal Culture - Preliminary Wound - Knee No growth in 3 weeks 02/09/18 10:55 Fungal Culture - Preliminary Wound - Knee No growth in 3 weeks - Impressions ITS Impressions Tibia/Fibula X-Ray 02/09/18 00:00 CONCLUSION: Good position and alignment on this postoperative study. Venous Doppler Study 02/11/18 00:00 CONCLUSION: No evidence of left lower extremity DVT Chest X-Ray 02/12/18 06:00 CONCLUSION: Cardiomegaly. No acute pulmonary disease. Discharge Plan - Discharge Disposition Patient Disposition: [facility] Inpatient - Discharge Condition Condition: Good - Discharge Order Discharge Orders: Discharge Order (Routine); Ordered 02/12/18 Ordered By: Issac Che Hospitalist Clear for Discharge (Routine); Ordered 02/12/18 Ordered By: Stuart Campbell III - Physicians Team Primary Care Provider: Bubba Alvarado Attending Provider: Davon Gibbs Other Providers: [employer],Insurance ; Tia Lee MD, R1 - Rxs /Orders / Referrals /Forms Prescriptions: New clonidine HCl [Catapres] 0.1 mg Tablet 0.1 mg PO Q6H PRN (Reason: Blood Pressure Management) RF: 0 diphenhydramine HCl 25 mg Capsule 25 mg PO Q6H PRN (Reason: Itching) RF: 0 hydrocodone-acetaminophen [[place]] 10-325 mg Tablet 1 tab PO Q4H PRN (Reason: Acute Pain) Qty: 42 RF: 0 Continue bupropion HCl 150 mg Tablet Extended Release 12 Hr 150 mg PO BID calcium carbonate [Calcium 500] 500 mg calcium (1,250 mg) Tablet 1,000 mg PO DAILY calcium carbonate-vitamin D3 [Calcium 500 With D] 500 mg(1,250mg) -400 unit Tablet 2 tab PO DAILY clonidine HCl 0.1 mg Tablet 0.1 mg PO BID diltiazem HCl 360 mg Capsule,Extended Release 24 Hr 360 mg PO HS ergocalciferol (vitamin D2) [Vitamin D2] 50,000 unit Capsule 50,000 unit PO QWEEK gabapentin 600 mg Tablet 2 tab PO TID lisinopril 40 mg Tablet 40 mg PO HS sertraline 100 mg Tablet 100 mg PO HS trazodone 50 mg Tablet 50 mg PO HS warfarin 6 mg Tablet 6 mg PO DAILY Discontinued hydrocodone-acetaminophen 7.5-325 mg Tablet 1 tab PO Q4-6H PRN (Reason: Pain) No Action bupropion HCl [Wellbutrin SR] 150 mg Tablet Extended Release 12 Hr 150 mg PO BID 30 Days Qty: 60 RF: 0 calcium carbonate-vitamin D3 [Oyster Shell Calcium-Vit D3] 250-125 mg-unit Tablet 2 tab PO DAILY 30 Days Qty: 60 RF: 0 clonidine HCl [Catapres] 0.1 mg Tablet 0.1 mg PO BID 30 Days Qty: 60 RF: 0 diltiazem HCl [Cardizem CD] 180 mg Capsule,Extended Release 24hr 360 mg PO HS 30 Days Qty: 60 RF: 0 enoxaparin [Lovenox] 40 mg/0.4 mL syringe 40 mg Sub-Q DAILY ergocalciferol (vitamin D2) 50,000 unit Capsule 50,000 unit PO Q7D 30 Days RF: 0 gabapentin [Neurontin] 300 mg Capsule 600 mg PO TID 30 Days Qty: 180 RF: 0 hydrocodone-acetaminophen 5-325 mg Tablet 1 tab PO Q12H PRN (Reason: Pain Scale 6 To 10 Or Coughing) Qty: 9 RF: 0 lisinopril 20 mg Tablet 40 mg PO HS 30 Days Qty: 60 RF: 0 polyethylene glycol 3350 17 gram powder in packet 17 gm PO DAILY polyethylene glycol 3350 17 gram Powder In Packet 17 gm PO DAILY 30 Days RF: 0 sennosides-docusate sodium [Senna Plus] 8.6-50 mg Tablet 1 tab PO BID 30 Days Qty: 60 RF: 0 sertraline [Zoloft] 100 mg Tablet 100 mg PO HS 30 Days Qty: 30 RF: 0 trazodone 50 mg Tablet 50 mg PO HS 30 Days Qty: 30 RF: 0 warfarin [Coumadin] 7.5 mg Tablet 7.5 mg PO DAILY@1600 30 Days RF: 0 Ambulatory Orders / Order Sets / DME: Prothrombin Time INR (Routine) Location: Determined by Patient Ordered By: Stuart aCmpbell III Referrals: Bubba Alvarado MD [Primary Care Provider] - See Instructions Davon Gibbs MD [Physician] - See Instructions (2 weeks) - Discharge Instructions Patient Printed Instructions: Hydrocodone/Acetaminophen (By mouth), How to Use an Incentive Spirometer (DC), How to Choose and Use a Walker (GEN), Fall Prevention (DC), DANIELLE Hose (DC), ORIF (DC), Non Weight Bearing Activity (DC) Additional Instructions: IT HAS BEEN OUR PLEASURE TAKING CARE OF YOU! GOOD LUCK WITH YOUR RECOVERY! WE HOPE THAT YOU HAVE HAD AN EXCEPTIONAL STAY HERE AT [facility]! - Post Discharge Care Plan Care Plan Goals: Your Health Problems: Goals to Promote Your Health: * To prevent worsening of your condition * To maintain your health at the optimal level Directions to Meet Your Goals: * Take your medications as prescribed * Follow your dietary instruction * Follow activity as directed * Keep your appointments as scheduled * Take your immunizations and boosters as scheduled * If your symptoms worsen call your PCP * If no PCP go to Urgent Care or Emergency Room Smoking is dangerous to your health. Avoid second hand smoke. You may reach the 24-hour crisis hotline for domestic abuse at .
== END 2018-02-13 11:31 ==
LOC: HSDI 05:28 → N06 13:38 → UNDODISIN 02-12 16:38
PROVIDERS: ADMIT Orthopaedic Surgery Orthopaedic Trauma; ATTEND Orthopaedic Surgery Orthopaedic Trauma
PROC: ORIFTIB (2018-02-09 09:49)